=== PATIENT | female | born 1940 | race Caucasian/White ===

== ENCOUNTER → 2016-09-24 | Outpatient (CLI) | payer OTHER ==
[~2016-09-24] MED LIST: ALBUAER19 INH; CALC500C70 PO; CHOL200027 PO; CYAN10005 PO; FEXO1TAB49 PO; FLUT0.15; FLVHFA44 INH; GLC500 PO; GLIP10TA10 PO; LOSA1TAB PO; MISCTAB78 PO; NAPR1TAB9 PO; OMEG12006 PO; SIMV-151 PO; ZNTT/150 PO
--- NOTE | 2016-09-24 16:00 | MAMMOGRAPHY REPORT ---
BILATERAL DIGITAL SCREENING MAMMOGRAM WITH CAD: 09/24/2016 CLINICAL HISTORY: Routine screening. Patient has no complaints. TECHNIQUE: Bilateral CC and MLO views were obtained. Current study was also evaluated with a Compute r Aided Detection (CAD) system. COMPARISON: Comparison is made to exams dated: 09/22/2015 mammogram, 09/20/2014 mammogram, 09/17/2013 m ammogram, 09/15/2012 mammogram, 09/13/2011 mammogram, and 09/08/2010 mammogram - [facility] enter. BREAST COMPOSITION: There are scattered areas of fibroglandular density in both breasts. FINDINGS: There is evidence of prior surgery in the right breast, with 2 linear scar markers overlyi ng breast. There is stable nodularity and associated benign dystrophic calcification near the surgic al site in the 12:00 and slightly medial right breast. However, there is increasing nodularity in th e lateral anterior right breast, comparing to more remote mammograms, for which additional spot compr ession tomosynthesis views and possibly ultrasound are recommended. There are stable benign-appearing calcifications in the left breast. No other suspicious mass, len ectural distortion or cluster of microcalcifications is seen. IMPRESSION: ACR BI-RADS CATEGORY 0: INCOMPLETE EVALUATION: NEED ADDITIONAL IMAGING EVALUATION The increasing nodularity in the lateral anterior right breast needs additional evaluation. The patient will be called to schedule an appointment. Approximately 10% of breast cancers are not detected with mammography. A negative mammographic report should not delay biopsy if a clinically suggestive mass is present. Soo Ardon M.D. ay/:09/24/2016 13:41:04 Fruit Trimmer: Yamilet SCHWARTZ(R)(M), [facility] letter sent: Addl Imaging 0 BI-RADS Code: ACR BI-RADS Category 0: Incomplete Evaluation: Need Additional Imaging Evaluation
== END | disposition home or self-care (01) ==
LOC: C.MAMM 11:23
PROVIDERS: ATTEND Family Medicine
DX: Z12.31 Encounter for screening mammogram for malignant neoplasm of breast (principal)

== ENCOUNTER → 2016-10-03 | Day surgery (SDC) | payer OTHER ==
[2016-09-05 14:27] VITALS: BMI 45.0
[2016-09-19 14:26] VITALS: Ht 152.4 cm; Wt 111.5 kg
--- NOTE | 2016-09-19 14:45 | PAT Medication Instructions ---
Service Date Sep 19, 2016. Current Home Medication List Albuterol Inhaler (Ventolin Inhaler), 2 PUFFS INH QID PRN for Wheezing Aspirin (Aspirin 81), 1 TAB PO QPM Calcium/Vitamin D (Os-Davian 500 Plus D), 1 TAB PO QAM Cholecalciferol (Vitamin D-3), 1 TAB PO QAM Cyanocobalamin (Vitamin B-12), 1,000 MCG PO QAM Fexofenadine Hcl (Marly Allergy), 1 TAB PO QAM Fluticasone Propionate (Flovent Hfa), 2 PUFFS INH BID Fluticasone Propionate (Nasal) (Flonase Allergy Relief), 2 SPRAY NA DAILY Glipizide (Glipizide), 1 TAB PO BID Losartan Potassium (Cozaar), 12.5 MG PO QPM Metformin HCl (Metformin HCl), 1,000 MG PO BID Misc Natural Products (Osteo Bi-Flex Advanced Do), 1 TAB PO QAM Naproxen (Aleve), 220 MG PO BID PRN for Pain Tenmile-3 Fatty Acids (Tenmile 3), 1 CAP PO QAM Ranitidine (Zantac), 150 MG PO BID Simvastatin (Simvastatin), 1 TAB PO QPM Medication Instructions For Your Scheduled Surgery - Instructions per surgeon: Naproxen (Aleve), 220 MG PO BID PRN for Pain - Hold the following medications as of 09/20/16: Tenmile-3 Fatty Acids (Tenmile 3), 1 CAP PO QAM Misc Natural Products (Osteo Bi-Flex Advanced Do), 1 TAB PO QAM - Hold the following medications 48 hours prior to surgery: Metformin HCl (Metformin HCl), 1,000 MG PO BID - Hold the following medications the morning of surgery: Calcium/Vitamin D (Os-Davian 500 Plus D), 1 TAB PO QAM Cholecalciferol (Vitamin D-3), 1 TAB PO QAM Cyanocobalamin (Vitamin B-12), 1,000 MCG PO QAM Fexofenadine Hcl (Marly Allergy), 1 TAB PO QAM Glipizide (Glipizide), 1 TAB PO BID - Take the following medications the morning of surgery with a sip of water OTHERWISE NOTHING TO EAT OR DRINK AFTER MIDNIGHT: Albuterol Inhaler (Ventolin Inhaler), 2 PUFFS INH QID PRN for Wheezing (use if needed; BRING TO HOSPITAL) Fluticasone Propionate (Flovent Hfa), 2 PUFFS INH BID Fluticasone Propionate (Nasal) (Flonase Allergy Relief), 2 SPRAY NA DAILY Ranitidine (Zantac), 150 MG PO BID - Take the following medications as scheduled the night before surgery: Albuterol Inhaler (Ventolin Inhaler), 2 PUFFS INH QID PRN for Wheezing Fluticasone Propionate (Flovent Hfa), 2 PUFFS INH BID Glipizide (Glipizide), 1 TAB PO BID Ranitidine (Zantac), 150 MG PO BID Simvastatin (Simvastatin), 1 TAB PO QPM - Do Not take the following medications the night before surgery: Losartan Potassium (Cozaar), 12.5 MG PO QPM If you have any questions please call us at [phone] or [phone] or [phone]
[2016-09-19 15:39] LABS: HEMATOCRIT 35.9 % (37-47); MEAN CELL VOLUME 88.2 fL (80-100); MEAN PLATELET VOLUME 9.7 fL (7.4-10.4); PLATELET COUNT 205 K/uL (130-400); RED BLOOD COUNT 4.07 M/uL (4.2-5.4); WHITE BLOOD COUNT 7.61 K/uL (4.8-10.8)
[2016-09-19 15:53] LABS: BUN/CREATININE RATIO 14.2 (10-20); CALCIUM 9.1 mg/dl (8.5-10.1); CREATININE 0.9 mg/dl (0.60-1.20); POTASSIUM 3.8 mmol/L (3.5-5.1)
[~2016-10-03] VITALS: Ht 152.4 cm; Wt 111.5 kg
== END | disposition home or self-care (01) ==
LOC: C.PAT 10:50 → EDSTATUS 12:00
PROVIDERS: ATTEND Obstetrics & Gynecology
DX: N95.0 Postmenopausal bleeding (principal); Z00.00 Encounter for general adult medical examination without abnormal findings; Z53.9 Procedure and treatment not carried out, unspecified reason

== ENCOUNTER → 2016-10-03 | Outpatient (CLI) | payer OTHER ==
--- NOTE | 2016-10-03 15:52 | MAMMOGRAPHY REPORT ---
UNILATERAL RIGHT DIGITAL DIAGNOSTIC MAMMOGRAM TOMOSYNTHESIS AND TARGETED RIGHT ULTRASOUND: 10/03/2016 CLINICAL HISTORY: Callback from screening mammogram for increasing nodularity in the right lateral br east. The patient reports a history of benign right breast surgical excision which were reportedly c ysts. TECHNIQUE: Breast tomosynthesis in addition to standard 2D mammography was performed. Spot compress ion right CC and MLO 2-D and tomosynthesis images were obtained. COMPARISON: Comparison is made to exams dated: 09/24/2016 mammogram, 09/22/2015 mammogram, 09/20/2014 m ammogram, 09/17/2013 mammogram, 09/15/2012 mammogram, and 09/13/2011 mammogram - [facility] enter. BREAST COMPOSITION: There are scattered areas of fibroglandular density in the right breast. FINDINGS: Spot compression views of the right breast demonstrate multiple lobulated similar-appearing circumscribed masses throughout the right upper outer quadrant. When compared to prior exams, multi ple masses have been seen throughout the right breast for years including on the 2011 and 2010 exams. No dominant mass is noted. Targeted ultrasound was performed of the right breast in the region of the mammographic masses. Ther e are innumerable similar-appearing lobulated hypoechoic masses within the right breast, predominantl y the right 11 to 12:00 breast. One measures 7 x 7 x 6 mm in the right breast at 11:00, 3 cm from th e nipple, as well as an adjacent 5 5 x 5 mm mass in the same location. In the right breast at 11:00, 5 cm from the nipple, a similar lobulated mass is noted which measures 5 x 6 mm. A smaller 3 mm mas s is seen within the right breast at 11:00, 6 cm from the nipple. 2 adjacent masses are noted in the right 12:00 periareolar breast measuring 12 and 4 mm. Another similar mass measuring 8 x 6 mm is se en within the right breast at 12:00, 5 cm from the nipple. The masses are likely solid and given the multiplicity and lobulated nature, may represent papillomatosis. Recommend ultrasound-guided biopsy of one of the right breast masses for further evaluation. The patient denies any nipple discharge. IMPRESSION: ACR BI-RADS CATEGORY 4: SUSPICIOUS, TARGETED ULTRASOUND ACR BI-RADS CATEGORY 4: SUSPICIO US Innumerable hypoechoic lobulated masses throughout the right superior breast, predominantly the right 11 to 12:00 region, which may represent papillomatosis. 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 A phone call was made to the physician's office to confirm faxed results were received. The patient has been verbally notified of the results. She tentatively scheduled the biopsy before leaving the [facility].. Approximately 10% of breast cancers are not detected with mammography. A negative mammographic report should not delay biopsy if a clinically suggestive mass is present. Zonia Matson M.D. ah/:10/03/2016 15:11:29 Graphic Design Specialist: Kateryna HARRISON)(Sylvia), [facility] letter sent: Abnormal 4/5 BI-RADS Code: ACR BI-RADS Category 4: Suspicious Ultrasound BI-RADS: ACR BI-RADS Category 4: Suspici ous
== END | disposition home or self-care (01) ==
LOC: C.MAMM 13:15
PROVIDERS: ATTEND Family Medicine
DX: N63 Unspecified lump in breast (principal)

== ENCOUNTER → 2016-10-19 | Outpatient (CLI) | payer OTHER ==
--- NOTE | 2016-10-19 11:41 | Discharge Instructions ---
Discharge Instructions Procedure Procedure Date: Oct 19, 2016. Reason for visit: Right Masss. Discharge Discharge Date: Oct 19, 2016. Discharge Diagnosis: post right breast ultrasound guided core biopsy 11 axis Medications Restart Stopped Medication(s): Remain off Aspirin as per OB-MOTOR TESTER recommendations Instructions Activity Recommendations: Additional Limitations (see below) Return to School/Work: no limitations Recommended Home Diet: No Limitations Provider Instructions: ACTIVITY RECOMMENDATIONS: * No lifting, pushing, pulling or exercising the affected side for three days. RETURN TO SCHOOL/WORK: * You may return to work/school after the procedure, but do not perform any strenuous activities for 24 to 48 hours. MEDICATIONS: * Tylenol (two 325 mg) every four to six hours if needed for mild pain (if not allergic to Tylenol). DIET: * Resume previous diet. SPECIAL CARE INSTRUCTIONS: * Keep biopsy site dry for 24 hours. May shower after 24 hours, but do not soak (bathe) incision. * May remove Tegaderm (plastic patch) tomorrow AFTER showering. * Leave the steri-strips on for one week. Allow the steri-strips to fall off by themselves. If not off after one week, you may remove them. You may place a Bandaid crosswise over the strips, if desired. * Apply ice 10 minutes on and 10 minutes off as needed. * Wear a bra at bedtime to sleep more comfortably for 2-3 days. * Your referring physician should have the results after approximately 5 to 7 business days. * Call for unusual bleeding, fever, drainage, etc or if you have any questions call [phone] during normal business hours or after hours call Dr Ardon, . FOLLOW UP VISIT: Follow-up with Referring Physician as scheduled. Allergies Coded Allergies: Codeine (Unverified Allergy, Severe, ANAPHALAXIS, 09/19/16) Oxycodone (Verified Allergy, Unknown, COUGH, 09/19/16) Penicillins (Unverified Allergy, Unknown, REACTION CHILD, FAMILY HX OF REACTION, 09/19/16) INFORMED BY DOC TO NOT TAKE PENICILLINS Uncoded Allergies: OYSTERS (Allergy, Unknown, SHORTNESS OF BREATH, 02/23/15) Garland Palomares Recommendations: Call your doctor if: * Temperature above 101 degrees * Pain not relieved by pain medicine ordered * There is increased drainage or redness from any incision * You have any unanswered questions or concerns. Your Doctors Instructions noted above were prepared by provider Soo Ardon. Patient Signature Section: Patient Instructions Signature Page Svitlana Kerr Patient (or Guardian) Signature/Date: I have read and understand the instructions given to me by my caregivers. Caregiver/RN/Doctor Signature/Date: The above-named patient and/or guardian has received patient instructions on this date. + Original Patient Signature Page (only) stays with chart. Please make copy for patient.
--- NOTE | 2016-10-19 12:18 | MAMMOGRAPHY REPORT ---
THIS REPORT HAS BEEN AMENDED. 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 COMPARISON: Comparison is made to exams dated: 10/03/2016 ultrasound, 10/03/2016 mammogram, 09/24/2016 ma mmogram, 09/22/2015 mammogram, 09/20/2014 mammogram, and 09/17/2013 mammogram - [facility] nt. PATIENT CONSENT: The procedure, risks and benefits were discussed with the patient and informed writt en consent was obtained. Specific risks to this procedure include: bleeding, infection and puncture o f adjacent structure, nontarget biopsy, sampling error, pain, medication reaction and metal allergy. PROCEDURE DESCRIPTION: A time out was performed and the right breast was agreed as the site of biopsy . The skin was prepped and draped in the usual sterile fashion. The largest visualized lobulated katy d mass in the 11:00 right breast was identified and chosen as the target for biopsy. Subcutaneous and intraparenchymal 1% buffered lidocaine, with and without epinephrine was administered as local anest hesia. A skin incision was made. Through the incision, 4 samples were taken with a 14 gauge Achieve biopsy device. A ribbon-shaped metallic marker was placed at the biopsy site. Hemostasis was achieved after manual compression. The patient tolerated the procedure well and there was no immediate compli cation. The samples were sent to the pathology department and an appropriately labeled container. Postprocedure right CC and ML tomosynthesis images were obtained. A new ribbon-shaped biopsy marker clip is seen in the 11:00 middle one third of the right breast, at the site of the ultrasound guided core biopsy. Innumerable other circumscribed masses are again noted throughout the middle and anteri or right breast, as well as surgical clips from prior surgery. No significant post biopsy hematoma i s seen. IMPRESSION: ULTRASOUND GUIDED BIOPSY Status post ultrasound guided core biopsy of an indeterminate solid lobulated mass in the 11:00 right breast, with biopsy marker placed at the site. Further recommendations regarding the management of the innumerable other masses in the right breast will be made once pathology results are available. The patient will receive notification of the biopsy results from her referring physician. Soo Ardon M.D. ay/:10/19/2016 11:55:39 Outdoor Studies Director: Debi Robertson, [facility] AMENDMENT: 10/26/2016 Soo Ardon M.D. 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 The pathology results are conco rdant with the imaging appearance. It should be noted that the patient had 2 prior right breast surgeries, for which pathology reports a re not available, but presumably yielded benign pathology. There are innumerable masses in the right breast seen mammographically corresponding with similar appearing hypoechoic lobulated sonographic m asses. The multiple lobulated masses span 10 cm in transverse (lateral to medial dimension), and 7 c m in craniocaudal dimension, mostly located within the superior breast including the upper outer and upper inner quadrants. Given that all of these masses have similar sonographic appearance, the presu mably all represent papillomas, i.e. papillomatosis. Typically this process is followed with imaging as opposed to surgical excision, but would recommend surgical consultation for possible management o ptions.
--- NOTE | 2016-10-19 12:18 | MAMMOGRAPHY REPORT ---
UNILATERAL RIGHT DIGITAL DIAGNOSTIC MAMMOGRAM TOMOSYNTHESIS: 10/19/2016 CLINICAL HISTORY: Status post ultrasound guided core biopsy of a dominant lobulated solid mass in the 11:00 right breast. Please refer to the report from right breast ultrasound guided core biopsy performed at the same time for full detail. IMPRESSION: POST PROCEDURE IMAGING FOR MARKER PLACEMENT Please refer to the report from right breast ultrasound guided core biopsy performed at the same time for full detail. Approximately 10% of breast cancers are not detected with mammography. A negative mammographic report should not delay biopsy if a clinically suggestive mass is present. Soo Ardon M.D. ay/:10/19/2016 11:42:37 Holiday Detector Operator: Debi Robertson, [facility] BI-RADS Code: Post Procedure Imaging For Marker Placement
== END | disposition home or self-care (01) ==
LOC: C.MAMM 10:47
PROVIDERS: ATTEND Family Medicine
DX: N63 Unspecified lump in breast (principal)

== ENCOUNTER 2016-10-29 05:44 | Day surgery (SDC) | payer OTHER ==
[2016-10-26 16:17] VITALS: BMI 45.0
[~2016-10-29] VITALS: Ht 152.4 cm; Wt 105.0 kg
[2016-10-29] MEDS ORDERED: LACTATED RINGER'S 1000ML 1,000 ML IV SCH ×2 (06:00)
[2016-10-29 06:13] VITALS: PULSE 79; TEMP 36.8; O2SAT 96; Ht 152.4 cm; Wt 105.0 kg
--- NOTE | 2016-10-29 07:00 | History & Physical Bridge Note ---
H&P Re-Evaluation Bridge Note: I have examined the patient, reviewed the History & Physical and in the interval since the performance of the History & Physical I have noted the following changes of clinical significance: No changes noted
[2016-10-29] MEDS ORDERED: PROPOFOL IV EMULSION 10 MG/ML 20 ML VIAL IV ONE (07:15)
[2016-10-29] MEDS ORDERED: ROCURONIUM BROMIDE 10 MG/ML 5 ML VIAL ONE (07:15)
[2016-10-29] MEDS ORDERED: NEOSTIGMINE METHYLSULFATE 5 MG/5 ML SYR ONE (07:15)
[2016-10-29] MEDS ORDERED: GLYCOPYRROLATE INJ 0.2 MG/ML VIAL ONE (07:15)
[2016-10-29] MEDS ORDERED: ONDANSETRON INJ 2 MG/ML 2 ML VIAL ONE (07:15)
[2016-10-29] MEDS ORDERED: LIDOCAINE HCL 2% 2 ML VIAL (20MG/ML) ONE (07:15)
[2016-10-29] MEDS ORDERED: DEXAMETHASONE SOD INJ 4 MG/ML VIAL ONE (07:15)
[2016-10-29] MEDS ORDERED: FENTANYL CITRATE INJ 50 MCG/1 ML 2 ML VIAL ONE ×3 (07:16→08:46)
[2016-10-29] MEDS ORDERED: SODIUM CHLORIDE 0.9% 1000ML 1,000 ML IV SCH (07:57)
--- NOTE | 2016-10-29 07:59 | Discharge Instructions ---
Discharge Instructions Date of Service Oct 29, 2016. Admission Reason for Admission: Post Menopausal Bleeding Discharge Discharge Diagnosis / Problem: PMB Discharge Goals Goal(s): Routine recovery after surgery Activity Recommendations Activity Limitations: per Instructions/Follow-up section . Instructions / Follow-Up Instructions / Follow-Up ACTIVITY RECOMMENDATIONS: * Avoid tampons, douching, hot tubs, pools, and intercourse until bleeding has stopped. * May shower as usual. * No strenuous activity for 24-48 hours. After 24-48 hours, you may do anything you feel like doing (driving and sports are okay). SPECIAL CARE INSTRUCTIONS: Special Diet: * Mild nausea may occur in the immediate post-operative period. * Take clear liquids such as tea, cola or bouillon until all nausea has subsided; you may then resume your normal diet. Special Care: * Light bleeding and vaginal spotting can last from a few days to 3-4 weeks. Call your doctor if bleeding becomes heavier than the heaviest part of your period. * Check your temperature twice a day for one week. If it goes above 100.4 degrees Fahrenheit (38.0 Celsius), notify your doctor. * Call your doctor's office for an appointment for 6 weeks after your surgery. FOLLOW-UP VISIT: Call your doctor's office for an appointment for 6 weeks after your surgery. Current Hospital Diet Patient's current hospital diet: Discharge Diet Recommended Diet: Regular Diet Pending Studies Studies pending at discharge: no Medical Emergencies . Who to Call and When: Medical Emergencies: If at any time you feel your situation is an emergency, please call 911 immediately. . Non-Emergent Contact Non-Emergency issues call your: Construction Mgr . . "Provider Documentation" section prepared by George Olivarez. . VTE Core Measure Inpt VTE Proph given/why not?: Francisco Hunter, SCD's
[2016-10-29] MEDS ORDERED: PROMETHAZINE HCL INJ 25 MG in SODIUM CHLORIDE 0.9% 50ML 50 ML IV PRN (08:00)
[2016-10-29] MEDS ORDERED: ONDANSETRON INJ 2 MG/ML 2 ML VIAL IV PRN ×2 (08:00→08:15)
[2016-10-29] MEDS ORDERED: KETOROLAC TROMETHAMINE 15 MG/ML VIAL IV. PRN (08:00)
[2016-10-29] MEDS ORDERED: IBUPROFEN 600 MG TAB PO PRN (08:00)
--- NOTE | 2016-10-29 08:03 | [facility] Operative Report ---
Operative Report Operative Date Oct 29, 2016. Pre-Operative Diagnosis Postmenopausal bleeding Post-Operative Diagnosis Endometrial polyp Procedure(s) Performed Hysteroscopy resection of endometrial polyp Surgeon Juanis Manager Personal Surgeon(s) . Estimated Blood Loss 10 mL Findings Patient was taken back to the operating room prepped and draped in dorsal lithotomy position in yellowfin Afdy stirrups after receiving a general anesthetic. Bladder was drained uterus exam and found to be anteverted. Weighted speculum place in the vagina should be noted we drained her bladder as well with a catheter. Anterior lip of the cervix grasped with a single-tooth tenaculum cervix methodically dilated starting with a #13 dilator and progressing to a #25 dilator. At this stage it was able to place a 5 mm hysteroscope using normal saline survey solution. Findings large benign-appearing endometrial polyp originating from the fundus both tubal losses were visualized and normal no other findings endometrium atrophic no sign of perforation. The myosure was then connected and using the myosure lite we resected the polyp carefully. This was done in the usual fashion ensuring the blades were always in the board lining machine operator's visual view when active. Once the polyp was fully removed pictures were taken for documentation instruments were removed from the cervix and vagina sponge and instrument counts correct estimated fluid losses of saline 85 mL Specimens Endometrial polyp Drains none Anesthesia General Complication(s) None Disposition Recovery Room / PACU I attest to the content of the Intraoperative Record and any orders documented therein. Any exceptions are noted below.
[2016-10-29] MEDS ORDERED: NALOXONE HCL 0.4 MG/1 ML VIAL/CARP IV PRN (08:15)
[2016-10-29] MEDS ORDERED: MEPERIDINE HCL 25 MG/ML CARP IV PRN (08:15)
[2016-10-29] MEDS ORDERED: FENTANYL CITRATE INJ 50 MCG/1 ML 2 ML VIAL IV PRN (08:15)
[2016-10-29] MEDS ORDERED: ATROPINE SULFATE 0.1 MG/ML 5ML SYR IV PRN (08:15)
[2016-10-29] MEDS ORDERED: FLUMAZENIL 0.1 MG/1 ML 10 ML VIAL IV PRN (08:15)
[2016-10-29] MEDS ORDERED: PHENYLEPHRINE 100MCG/ML 5ML SYR IV PRN (08:15)
[2016-10-29] MEDS ORDERED: LABETALOL HCL IV 5 MG/ML 20ML IV PRN (08:15)
[2016-10-29] MEDS ORDERED: EpHEDrine SULFATE INJ 50 MG/ML AMP IV PRN (08:15)
[2016-10-29] MEDS ORDERED: LABETALOL HCL IV 5 MG/ML 20ML IV ONE (08:20)
[2016-10-29] MEDS ORDERED: KETOROLAC TROMETHAMINE 30 MG/ML VIAL ONE (08:47)
[2016-10-29] MEDS ORDERED: KETOROLAC TROMETHAMINE 30 MG/ML VIAL IV STA (08:48)
[2016-10-29 09:15] VITALS: BP 149/79; PULSE 71; TEMP 36.4; O2SAT 92
--- NOTE | 2016-10-29 09:18 | Anesthesiology Progress Note ---
Anesthesia Post Op Note Date & Time Oct 29, 2016 at 09:11 Vital Signs Pain Intensity: 2 Vital Signs Past 12 Hours Date Time Temp Pulse Resp B/P (MAP) Pulse Ox O2 Delivery O2 Flow Rate FiO2 10/29/16 08:52 160/88 10/29/16 08:50 75 21 92 10/29/16 08:50 75 21 10/29/16 08:47 148/86 10/29/16 08:45 77 16 94 10/29/16 08:45 78 16 10/29/16 08:42 150/90 10/29/16 08:40 77 11 10/29/16 08:40 77 11 96 10/29/16 08:37 146/83 10/29/16 08:35 76 10 10/29/16 08:35 76 10 100 10/29/16 08:32 151/84 10/29/16 08:30 78 12 98 10/29/16 08:30 77 12 10/29/16 08:27 138/89 10/29/16 08:25 78 13 99 10/29/16 08:25 78 13 10/29/16 08:22 141/91 10/29/16 08:20 75 13 97 10/29/16 08:20 76 13 10/29/16 08:17 144/97 10/29/16 08:15 80 15 10/29/16 08:15 80 15 96 10/29/16 08:10 36 84 16 184/90 96 Mask 10 10/29/16 06:13 36.8 79 22 96 Room Air Notes Mental Status: alert / awake / arousable, participated in evaluation Pt Amnestic to Procedure: Yes Nausea / Vomiting: adequately controlled Pain: adequately controlled Airway Patency, RR, SpO2: stable & adequate BP & HR: stable & adequate, see Notes Hydration State: stable & adequate Anesthetic Complications: no major complications apparent The patient was noted to be hypertensive preoperatively and intraoperatively on both induction and emergence. Her initial blood pressure in the PACU was elevated. However, subsequent blood pressures have been normal. The patient has a history of GERD and felt some central chest discomfort in the PACU. A 12 lead EKG was obtained that showed sinus rhythm with 1st degree AV block. No ST or T wave changes were noted. The discomfort was located over the sternum, did not radiate, and was made worse when palpating the sternal area. The pain has since resolved and the patient feels okay now. Her vitals are all stable. I reviewed the EKG and spoke with Dr. Jacobo about the patient. The chest discomfort did not appear to be cardiac in nature. However, the patient was counseled that if she feels any new or worsening chest discomfort, shortness of breath, or other concerning symptoms that she is to immediately go to the ER to which she agreed.
[2016-10-29 09:45] VITALS: BP 155/79; PULSE 74; O2SAT 92
[2016-10-29 10:15] VITALS: BP 150/96; PULSE 64; O2SAT 94
== END 2016-10-29 10:45 | disposition home or self-care (01) ==
LOC: C.OR 05:44
PROVIDERS: ATTEND Obstetrics & Gynecology
DX: N95.0 Postmenopausal bleeding (principal); N84.0 Polyp of corpus uteri; E66.01 Morbid (severe) obesity due to excess calories; M19.90 Unspecified osteoarthritis, unspecified site; J45.909 Unspecified asthma, uncomplicated; E11.9 Type 2 diabetes mellitus without complications; K21.9 Gastro-esophageal reflux disease without esophagitis; Z82.49 Family history of ischemic heart disease and other diseases of the circulatory system; Z85.038 Personal history of other malignant neoplasm of large intestine; Z80.3 Family history of malignant neoplasm of breast; Z79.84 Long term (current) use of oral hypoglycemic drugs; K44.9 Diaphragmatic hernia without obstruction or gangrene; Z98.49 Cataract extraction status, unspecified eye

== ENCOUNTER → 2017-02-19 | Outpatient (CLI) | payer OTHER ==
--- NOTE | 2017-02-19 15:40 | DIAGNOSTIC IMAGING REPORT ---
LUMBAR SPINE MIN 4 VIEWS HISTORY: Pain LOWER BACK PAIN COMPARISON: 04/19/2014 FINDINGS: There is no fracture. . Moderate to rather significant degenerative disc changes throughout. Grade 1 anterolisthesis L5 on S1 similar to the prior study. Degenerative change posterior elements. IMPRESSION: Degenerative change throughout the entire lumbar region. Stable grade 1 anterolisthesis L5 on S1. No acute process. The above report was generated using voice recognition software. It may contain grammatical, syntax or spelling errors. Electronically signed by: Shahzad Horn M.D. 02/19/2017 3:39 PM Dictated Date/Time: 02/19/2017 3:37 PM
== END | disposition home or self-care (01) ==
LOC: C.RDSM 14:00
PROVIDERS: ATTEND Internal Medicine
DX: M54.5 Low back pain (principal); M53.87 Other specified dorsopathies, lumbosacral region

== ENCOUNTER → 2017-03-01 | Outpatient (CLI) | payer OTHER ==
--- NOTE | 2017-03-01 12:10 | DIAGNOSTIC IMAGING REPORT ---
LUMBAR SPINE W/O CONTRAST CLINICAL HISTORY: 76 years-old Female presenting with LOWER BACK PAIN. TECHNIQUE: Multisequence, multiplanar MR imaging of the lumbar spine was performed without the use of intravenous contrast. IV contrast: None. COMPARISON: Plain radiographs of the lumbar spine from 02/19/2017. FINDINGS: Localizer images: Unremarkable. Normal lumbar lordosis. Vertebral bodies maintain normal height, alignment, and bone marrow signal intensity with the exception of a T2 hyperintense, peripherally T1 hyperintense and centrally T1 hypointense, peripherally fat-containing lesion in the L1 vertebral body. This is suggestive of an atypical hemangioma. Diffuse intervertebral disc desiccation noted with height loss at L2-3 and L3-4, where there are disc bulges/disc protrusions. Degenerative changes further detailed below: L1 to: No significant neural foraminal or spinal canal stenosis. L2-3: Disc bulge with right eccentric disc protrusion with slight cranial migration resulting in mild effacement of the right lateral recess. This abuts the exiting right L2 nerve root. No significant spinal canal narrowing. L3-4: Disc bulge with slight cranial migration. This results in mass effect on the bilateral exiting L3 nerve roots and severe bilateral neural foraminal narrowing. Mild effacement of the ventral thecal sac without evidence of impingement of the cauda equina. L4-5: Disc bulge results in mass effect on the exiting right L4 nerve root and abutment of the exiting left L4 nerve root. Moderate to severe bilateral neural foraminal narrowing. No significant spinal canal narrowing. L5-S1: Minimal disc bulge and facet arthropathy with mild to moderate neural foraminal narrowing bilaterally. Spinal cord ends in good position at L1. Cauda equina normal in morphology. Paraspinal musculature normal. Nonspecific superficial subcutaneous edema in the posterior posterior lumbar region. Incidental note made of a circumaortic left renal vein. IMPRESSION: 1. Multilevel degenerative changes primarily a result of disc bulges/disc protrusions. This results in mass effect on exiting nerve roots at several levels as well as varying degrees of neural foraminal narrowing as detailed above. This is most severe at L3-4 and L4-5. Electronically signed by: Niall Morgan M.D. 03/01/2017 12:08 PM Dictated Date/Time: 03/01/2017 12:03 PM
== END | disposition home or self-care (01) ==
LOC: C.MRI 10:56
PROVIDERS: ATTEND Internal Medicine
DX: M51.26 Other intervertebral disc displacement, lumbar region (principal); M51.36 Other intervertebral disc degeneration, lumbar region

== ENCOUNTER → 2017-03-18 | Outpatient (CLI) | payer OTHER ==
--- NOTE | 2017-03-19 07:55 | MAMMOGRAPHY REPORT ---
UNILATERAL RIGHT DIGITAL DIAGNOSTIC MAMMOGRAM TOMOSYNTHESIS WITH CAD AND TARGETED RIGHT ULTRASOUND: 1 05/19/2016 CLINICAL HISTORY: 76-year-old woman presents for follow-up in the right breast. She has a history of 2 prior right breast surgeries and a recent ultrasound-guided core biopsy in the 11:00 axis which occitan elded a papilloma. She was initially called back from screening mammography given slow interval incr ease in size and number of the masses comparing back to remote prior mammograms. TECHNIQUE: Right breast tomosynthesis in addition to standard 2D mammography was performed. Current hien topete was also evaluated with a Computer Aided Detection (CAD) system. COMPARISON: Comparison is made to exams dated: 10/19/2016 mammogram, 10/19/2016 ultrasound biopsy, 10/03 mammogram, 09/24/2016 mammogram, 09/22/2015 mammogram, and 09/20/2014 mammogram - [facility]. BREAST COMPOSITION: There are scattered areas of fibroglandular density in the right breast. FINDINGS: 2 linear scar markers overlie the right breast. There is expected architectural distortion in the anterior retroareolar right breast, 2 cm deep to the nipple, and in the lower inner middle on e third of the right breast at the locations of prior surgical excisions. There are dystrophic calci fications and surgical clips at both surgical site. There are at least 20 lobulated and circumscribed masses within the superior right breast both latera lly and medially. A biopsy marker clip is associated with one of the masses in the 11:00 right breas t. There is no evidence of a new spiculated, angular or irregular mass. No unexpected architectural distortion, developing asymmetry or new suspicious microcalcifications identified. When comparing t o the September 2016 mammograms, the right breast masses do not appear significantly changed in size, numb er or distribution. 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 Targeted ultrasound was performed throughout the superior right breast. The dominant biopsied mass i s again seen in the 11:00 right breast, 3 cm from the nipple. Groupings of lobulated hypoechoic katy d masses are identified throughout the 12:00, 1:00 and 11:00 axes. IMPRESSION: ACR-BI-RADS CATEGORY 3: PROBABLY BENIGN, TARGETED ULTRASOUND ACR-BI-RADS CATEGORY 3: PRO BABLY BENIGN There are at least 20 lobulated and circumscribed small masses within the upper outer and upper inner quadrants of the right breast that are increased in size and number comparing to more remote prior m ammograms, such as the 2007 mammogram, but appear stable comparing to the recent September 2016 mammograms . The borders of these masses are best visualized on the tomosynthesis images. Although it is contr oversial whether papillomas diagnosed at core needle biopsy need to be surgically excised because the y can have a heterogeneous composition, with suspected papillomatosis would recommend continued close follow-up imaging. Therefore, bilateral diagnostic tomosynthesis mammograms and bilateral complete ultrasound (30 minute s) is recommended to ensure stability in 6 months. These results and recommendations were discussed with the patient at the time of the exam. Approximately 10% of breast cancers are not detected with mammography. A negative mammographic report should not delay biopsy if a clinically suggestive mass is present. Soo Ardon M.D. ay/:03/18/2017 18:54:00 Field Control Inspector: Frida SCHWARTZ(R)(M), [facility] letter sent: Follow Up Recommended 3 BI-RADS Code: ACR-BI-RADS Category 3: Probably Benign Ultrasound BI-RADS: ACR-BI-RADS Category 3: Pr obably Benign
== END | disposition home or self-care (01) ==
LOC: C.MAMM 10:34
PROVIDERS: ATTEND Surgery
DX: N63.11 Unspecified lump in the right breast, upper outer quadrant (principal); N63.12 Unspecified lump in the right breast, upper inner quadrant; R92.8 Other abnormal and inconclusive findings on diagnostic imaging of breast; C83.11 Mantle cell lymphoma, lymph nodes of head, face, and neck

== ENCOUNTER → 2017-05-30 | Outpatient (CLI) | payer OTHER ==
[~2017-05-30] MED LIST changes: +RANI150T85 PO; -ZNTT/150 PO
--- NOTE | 2017-05-30 14:17 | DIAGNOSTIC IMAGING REPORT ---
CHEST 2 VIEWS ROUTINE CLINICAL HISTORY: R60.9 dyspnea COMPARISON STUDY: No previous studies for comparison. FINDINGS: The bones soft tissues and hemidiaphragms are normal. The cardiomediastinal silhouette is normal. The lungs are clear. The pulmonary vasculature is normal. IMPRESSION: Negative chest. The above report was generated using voice recognition software. It may contain grammatical, syntax or spelling errors. Electronically signed by: Shahzad Horn M.D. 05/30/2017 2:15 PM Dictated Date/Time: 05/30/2017 2:15 PM
== END | disposition home or self-care (01) ==
LOC: C.RAD1850 13:41
PROVIDERS: ATTEND Family Medicine
DX: R60.9 Edema, unspecified (principal); R63.5 Abnormal weight gain

== ENCOUNTER 2021-09-13 21:57 | Observation (INO) ==
[2021-09-13] MEDS ORDERED: SODIUM CHLORIDE 0.9% 1000ML 1,000 ML IV SCH (22:30)
[2021-09-13 22:41] LABS: Basophils # (auto) 0.01 K/uL (0-0.2); Basophils % (auto) 0.1 %; Eosinophils # (auto) 0.05 K/uL (0-0.5); Eosinophils % (auto) 0.5 %; Hematocrit (blood only) 37.7 % (37-47); Hemoglobin 12.2 g/dL (12.0-16.0); Immature Granulocytes # (auto) 0.02 K/uL (0.00-0.02); Immature Granulocytes % (auto) 0.2 %; Lymphocytes % (auto) 15.2 %; Mean Corpuscular Hemoglobin 28.3 pg (25-34); Mean Corpuscular Hgb Conc 32.4 g/dL (32-36); Mean Corpuscular Volume 87.5 fL (80-100); Mean Platelet Volume 10.7 fL (7.4-10.4); Monocytes # (auto) 0.86 K/uL (0.11-0.59); Monocytes % (auto) 8.7 %; Neutrophils % (auto) 75.3 %; Platelet Count 196 K/uL (130-400); RDW Standard Deviation 51.4 fL (36.4-46.3); Red Blood Count 4.31 M/uL (4.2-5.4); White Blood Count 9.84 K/uL (4.8-10.8)
--- NOTE | 2021-09-13 22:47 | Emergency Department Note ---
Impression & Plan Generalized muscle weakness, Contusion of leg, left, Fall, Hypomagnesemia ED Provider Note INFORMANT: Patient ED PROVIDER(S): George Pak MD CHIEF COMPLAINT: Fall PLAN: Disposition: Admitted Condition: Good Outpatient prescription management: none Referral: None MEDICAL DECISION MAKING: Patient presented because of a fall and weakness. She was evaluated. She had minor findings in the left leg. X-ray imaging did not reveal any evidence of fracture or dislocation. CT scan of the head was negative for acute process. Her CBC and chemistry panel was unremarkable. Patient does have a low magnesium level at 1.3. Patient's troponin is also borderline. An ECG was performed and did not show any acute findings. Patient's urinalysis was unremarkable as well as COVID testing. IV magnesium was given. Discussed further management in the hospital and patient was in agreement. Consultation was made with the [facility]. Patient was evaluated in the ER and admitted for further management. Triage Nursing notes reviewed and agree them. Vital Signs: reviewed and remarkable for hypertension Differential diagnosis: Infection, dehydration, metabolic abnormality, hypo/hyperglycemia, electrolyte disturbance, anemia, hypoxia, cardiac sources, intracerebral event, toxicologic, neurologic, as well as other pathologies. Diagnostics interpreted by me: EC Lead ECG performed and revealed Normal sinus rhythm at 89, left [place], QRS normal. No elevation or depression. No PACs or PVCs Cardiac Monitoring: Cardiac monitoring ordered by me: The patient was placed on continuous cardiac monitoring and observed. It revealed a normal sinus rhythm at 86 beats per minute without ectopy or evidence of dysrhythmia. Imaging studies: Head CT and x-rays as above. Chest x-ray negative. HPI: The patient is a 81year old female who presents to the Emergency Room with complaints of fall. This started today and is noted to have occurred twice. First time the patient had EMS canceled. She then fell again trying to go to the bathroom. She was too weak to get up out of her chair and use a walker. She did feel like she hurt her left leg but was able to put weight. EMS was summoned and she was brought to the emergency department. The patient also notes the following associated symptoms, generalized weakness. The patient has taken no medication forrelieving factors. Current pain is rated as 3/10. Patient has a history of a meningioma resection and currently has another one that is being watched. Pt denies LOC, headache, fevers, chills, diaphoresis, visual changes, neck pain, chest pain, breathing difficulties, nausea, vomiting, abdominal pain, back pain, melena, hematochezia, urinary symptoms, numbness, weakness, lymphadenopathy, rash, or other complaints. ROS: See above HPI for pertinent positives & negatives. A total of 10 systems reviewed and were otherwise negative. PAST MEDICAL HISTORY:See Below , asthma PAST SURGICAL HISTORY:See Below, FAMILY HISTORY:See Below SOCIAL HISTORY:See Below, HOME MEDICATIONS:See Below ALLERGIES:See Below VITALS:See Below PHYSICAL EXAMINATION: GENERAL: Awake, alert, well-appearing, in no distress HENT: Normocephalic, atraumatic. Oropharynx unremarkable. EYES: Normal conjunctiva. Sclera non-icteric. NECK: Inspection normal. Non-tender. Supple. No nuchal rigidity. FROM. No masses. RESPIRATORY: Clear to auscultation. No wheezes. No rales. Normal respiratory effort. CARDIAC: Normal rate. Normal rhythm. No murmurs. No rubs. Extremities warm and well perfused. Pulses equal. No JVD. GI: Soft, non-distended. No tenderness to palpation. No rebound or guarding. No masses. RECTAL: Deferred. MUSCULOSKELETAL: Atraumatic appearance. Tenderness to palpation of the mid left femur without obvious deformity or external rotation. No hip tenderness. Upper and right lower extremities are atraumatic. Chest examination reveals no tenderness. The back is symmetrical on inspection without obvious abnormality. There is no CVA tenderness to palpation. No joint edema. LOWER EXTREMITIES: Calves are equal size bilaterally and non-tender. No edema. N o discoloration. NEURO: Normal sensorium. No sensory or motor deficits noted. SKIN: No rash or jaundice noted. George Pak MD Past Med/Surg History Medical History (Updated 09/14/21 @ 02:09 by George Pak MD) Asthma HAS NOT USED RESCUE INHALER FOR A WHILE Diabetes mellitus, type 2 GERD (gastroesophageal reflux disease) Hx of meningioma of the brain Hyperlipidemia Hypertension Osteoarthritis Peripheral neuropathy Seasonal allergies Sleep apnea DOES NOT USE DEVICE "CURRENTLY" Thyroid cyst THYROID GROWTH (HX BIOPSY) Surgical History History of anesthesia reaction PLEASE SEE VOCAL CORD PARALYSIS NOTE History of cataract surgery RT/LEFT History of colonoscopy History of dilatation and curettage X 2 History of tooth extraction Hx of craniotomy DURING PROCEURE NICKED VOCAL CORD (2019) [facility] [place] 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 D/T CORRECTIVE SURGERY VOCAL CORD CORRECTION USING FAT FROM ABDOMEN TO BUILD UP THE VOCAL CORD ([facility]) Retinal tear of both eyes LASER RT/LEFT Family History (Updated 01/04/21 @ 12:56 by YOHANA Metcalf) Father Family hx of colon cancer Family history of diabetes mellitus Other Cancer Heart disease Tuberculosis Denies family history of Asthma Social History Smoking Status: Never smoker Second Hand Exposure: Yes ( A CHILD); Hx Alcohol Use: No Preferred Language: [place] [employer] Sewer Required: No Beliefs That Will Affect Care: None Current Living Situation: Spouse Feels Safe at Home: Yes Assistive Devices: Cane, Glasses and Hearing Aid - Bilateral Allergies Allergies Allergy/AdvReac Type Severity Reaction Status Date / Time codeine Allergy Severe ANAPHALAXIS Verified 09/13/21 22:33 Penicillins Allergy Unknown REACTION Verified 09/13/21 22:33 CHILD, FAMILY HX OF REACTION lisinopril AdvReac Mild cough Verified 09/13/21 22:33 oyster extract AdvReac Mild NAUSEA/VOMI Verified 09/13/21 22:33 TTING Home Meds Home Medications Medication Instructions Recorded Confirmed atorvastatin 40 mg tablet 40 mg PO PM 01/27/20 09/13/21 glipizide 10 mg tablet 10 mg PO BID 01/27/20 09/13/21 losartan 25 mg tablet 25 mg PO QPM 01/27/20 09/13/21 metformin 1,000 mg tablet 1,000 mg PO BID 01/27/20 09/13/21 pantoprazole 40 mg tablet,delayed 40 mg PO QAM 01/27/20 09/13/21 release aspirin 81 mg tablet,delayed 81 mg PO DAILY 01/04/21 09/13/21 release calcium citrate 200 mg (950 mg) 200 mg PO DAILY 01/04/21 09/13/21 tablet cholecalciferol (vitamin D3) 25 25 mcg PO DAILY 01/04/21 09/13/21 mcg (1,000 unit) capsule coenzyme Q10 100 mg capsule 200 mg PO DAILY cap 01/04/21 09/13/21 (CoQ-10) metoprolol succinate 25 mg 25 mg PO DAILY 09/13/21 09/13/21 tablet,extended release 24 hr Previous Rx's Medication Instructions Recorded CPAP Machine #1 ea 02/01/21 CPAP Supplies #1 ea 06/06/21 Incentive Spirometer #1 ea 06/06/21 levocetirizine 5 mg tablet 5 mg PO DAILY PRN #30 tab 06/06/21 albuterol sulfate 90 mcg/actuation 2 puff INHALATION Q6H PRN #1 06/13/21 aerosol inhaler inhaler Results & Data (ED) Vital Signs Vital Signs - 24 hr 09/13/21 22:02 09/13/21 22:26 09/13/21 22:30 Temperature 37 C Temperature Source Oral Pulse Rate 94 H 88 93 H Pulse Rhythm Regular Regular Pulse Strength Normal Respiratory Rate 24 24 Respiratory Effort / Characteristics Non-Labored Respiratory Depth Normal Respiratory Pattern Regular Blood Pressure 176/119 H 163/129 H Blood Pressure Mean 138 140 Blood Pressure Position Sitting Pulse Oximetry 97 97 98 Oxygen Delivery Method Room Air Room Air Room Air Sepsis Recent Fever Within 48 Hours No Sepsis New/Unexplained Change in Mental Status No Sepsis Action Taken by Nursing No Action Required 09/13/21 23:00 09/14/21 00:15 09/14/21 00:31 Temperature Temperature Source Pulse Rate 94 H 67 92 H Pulse Rhythm Pulse Strength Respiratory Rate 19 19 18 Respiratory Effort / Characteristics Respiratory Depth Respiratory Pattern Blood Pressure 154/95 H 185/101 H 154/79 H Blood Pressure Mean 114 129 104 Blood Pressure Position Pulse Oximetry 95 97 94 Oxygen Delivery Method Room Air Room Air Room Air Sepsis Recent Fever Within 48 Hours Sepsis New/Unexplained Change in Mental Status Sepsis Action Taken by Nursing 09/14/21 01:00 09/14/21 01:30 09/14/21 02:01 Temperature Temperature Source Pulse Rate 84 82 86 Pulse Rhythm Pulse Strength Respiratory Rate 16 16 17 Respiratory Effort / Characteristics Respiratory Depth Respiratory Pattern Blood Pressure 136/90 150/95 H 123/97 Blood Pressure Mean 105 113 105 Blood Pressure Position Pulse Oximetry 96 96 94 Oxygen Delivery Method Room Air Room Air Room Air Sepsis Recent Fever Within 48 Hours Sepsis New/Unexplained Change in Mental Status Sepsis Action Taken by Nursing Laboratory Data Result diagrams: 09/13/21 22:21 09/13/21 22:08 Lab Results 09/13/21 09/13/2122 Range/Units 22:08 22:08 22:21 WBC 9.84 (4.8-10.8) K/uL RBC 4.31 (4.2-5.4) M/uL Hgb 12.2 (12.0-16.0) g/dL Hct 37.7 (37-47) % MCV 87.5 (80-100) fL MCH 28.3 (25-34) pg MCHC 32.4 (32-36) g/dL RDW Std Deviation 51.4 H (36.4-46.3) fL RDW Coeff of Bo 16.0 H (11.5-14.5) % Plt Count 196 (130-400) K/uL MPV 10.7 H (7.4-10.4) fL Immature Gran % (Auto) 0.2 % Neut % (Auto) 75.3 % Lymph % (Auto) 15.2 % [place] % (Auto) 8.7 % Eos % (Auto) 0.5 % Baso % (Auto) 0.1 % Neut # (Auto) 7.40 H (1.4-6.5) K/uL Lymph # (Auto) 1.50 (1.2-3.4) K/uL [place] # (Auto) 0.86 H (0.11-0.59) K/uL Eos # (Auto) 0.05 (0-0.5) K/uL Baso # (Auto) 0.01 (0-0.2) K/uL Immature Gran # (Auto) 0.02 (0.00-0.02) K/uL Sodium 140 (136-145) mmol/L Potassium 3.9 (3.5-5.1) mmol/L Chloride 107 (98-107) mmol/L Carbon Dioxide 25 (21-32) mmol/L Anion Gap 8 (3-11) BUN 21 (6-23) mg/dl Creatinine 0.97 (0.6-1.2) mg/dl Est Cr Clr Drug Dosing 48.9 ml/min Est GFR ( Amer) 63.5 ml/min Est GFR (Non-Af Amer) 54.8 ml/min BUN/Creatinine Ratio 21.6 H (10-20) Glucose 161 H (70-99(Fasting)) mg/dl Calcium 9.3 (8.5-10.1) mg/dl Magnesium 1.3 L (1.7-2.4) mg/dl Total Bilirubin 0.8 (0.2-1.0) mg/dl AST 16 (13-39) U/L ALT 18 (7-52) U/L Alkaline Phosphatase 42 (34-104) U/L Total Creatine Kinase 182 (26-192) U/L Troponin I High Sens 14.2 H (0-14) pg/ml Total Protein 6.4 (6.0-8.3) gm/dl Albumin 3.9 (3.4-5.0) gm/dl Globulin 2.5 (2.5-4.0) gm/dl Albumin/Globulin Ratio 1.6 (0.9-2) TSH 3.246 (0.300-4.500) uIu/ml Urine Color Urine Appearance (Clear) Urine pH (4.5-7.5) Ur Specific [place] (1.000-1.030) Urine Protein (Negative) Urine Glucose (UA) (Negative) Urine Ketones (Negative) Urine Blood (Negative) Urine Nitrite (Negative) Urine Bilirubin (Negative) Urine Urobilinogen (Negative) Ur Leukocyte Esterase (Negative) SARS-CoV-2, RNA, NAAT (NEGATIVE) 09/13/21 09/13/21 Range/Units 22:50 23:31 WBC (4.8-10.8) K/uL RBC (4.2-5.4) M/uL Hgb (12.0-16.0) g/dL Hct (37-47) % MCV (80-100) fL MCH (25-34) pg MCHC (32-36) g/dL RDW Std Deviation (36.4-46.3) fL RDW Coeff of Bo (11.5-14.5) % Plt Count (130-400) K/uL MPV (7.4-10.4) fL Immature Gran % (Auto) % Neut % (Auto) % Lymph % (Auto) % [place] % (Auto) % Eos % (Auto) % Baso % (Auto) % Neut # (Auto) (1.4-6.5) K/uL Lymph # (Auto) (1.2-3.4) K/uL [place] # (Auto) (0.11-0.59) K/uL Eos # (Auto) (0-0.5) K/uL Baso # (Auto) (0-0.2) K/uL Immature Gran # (Auto) (0.00-0.02) K/uL Sodium (136-145) mmol/L Potassium (3.5-5.1) mmol/L Chloride (98-107) mmol/L Carbon Dioxide (21-32) mmol/L Anion Gap (3-11) BUN (6-23) mg/dl Creatinine (0.6-1.2) mg/dl Est Cr Clr Drug Dosing ml/min Est GFR ( Amer) ml/min Est GFR (Non-Af Amer) ml/min BUN/Creatinine Ratio (10-20) Glucose (70-99(Fasting)) mg/dl Calcium (8.5-10.1) mg/dl Magnesium (1.7-2.4) mg/dl Total Bilirubin (0.2-1.0) mg/dl AST (13-39) U/L ALT (7-52) U/L Alkaline Phosphatase (34-104) U/L Total Creatine Kinase (26-192) U/L Troponin I High Sens (0-14) pg/ml Total Protein (6.0-8.3) gm/dl Albumin (3.4-5.0) gm/dl Globulin (2.5-4.0) gm/dl Albumin/Globulin Ratio (0.9-2) TSH (0.300-4.500) uIu/ml Urine Color Yellow Urine Appearance Clear (Clear) Urine pH 8.5 H (4.5-7.5) Ur Specific [place] 1.008 (1.000-1.030) Urine Protein Negative (Negative) Urine Glucose (UA) Trace H (Negative) Urine Ketones Negative (Negative) Urine Blood Negative (Negative) Urine Nitrite Negative (Negative) Urine Bilirubin Negative (Negative) Urine Urobilinogen Negative (Negative) Ur Leukocyte Esterase Negative (Negative) SARS-CoV-2, RNA, NAAT NEGATIVE (NEGATIVE) Administered Medications Sodium Chloride (Nss 1000ml) 1,000 mls @ 125 mls/hr IV .Q8H BERTIN Stop: 09/14/21 06:29 Last Admin: 09/14/21 00:39 Dose: 125 mls/hr Documented by: [id number] Magnesium Sulfate/Dextrose (Magnesium Sulfate / D5w) 1 gm in 100 mls @ 100 mls/hr IV Q1H BERTIN Stop: 09/14/21 02:28 Last Infusion: 09/14/21 01:44 Dose: 0 mls/hr Documented by: [id number] Admin: 09/14/21 00:44 Dose: 100 mls/hr Documented by: [id number] Discharge Plan Visit Data Chief Complaint: Fall ED Provider: George Pak Discharge Problem: Generalized muscle weakness, Contusion of leg, left, Fall, Hypomagnesemia Patient Disposition: Admitted As Inpatient Forms Stand Alone Forms: [facility] [place] Data Prescriptions Prescriptions: No Action (DME) CPAP Machine Misc See Rx Instructions .MEDSUPPLY Qty: 1 RF: 0 albuterol sulfate 90 mcg/actuation HFA aerosol inhaler 2 puff inhalation Q6H PRN (Reason: shortness of breath or wheezing) Qty: 1 RF: 5 levocetirizine 5 mg tablet 5 mg PO DAILY PRN (Reason: allergy symptoms) Qty: 30 RF: 3 (DME) Incentive Spirometer Misc See Rx Instructions .MEDSUPPLY Qty: 1 RF: 0 (DME) CPAP Supplies Misc See Rx Instructions .MEDSUPPLY Qty: 1 RF: 0 coenzyme Q10 [CoQ-10] 100 mg capsule 200 mg PO DAILY RF: 0 cholecalciferol (vitamin D3) 25 mcg (1,000 unit) capsule 25 mcg PO DAILY RF: 0 calcium citrate 200 mg (950 mg) tablet 200 mg PO DAILY RF: 0 aspirin 81 mg tablet,delayed release (DR/EC) 81 mg PO DAILY RF: 0 atorvastatin 40 mg Tablet 40 mg PO PM RF: 0 glipizide 10 mg Tablet 10 mg PO BID RF: 0 pantoprazole 40 mg Tablet,Delayed Release (Dr/Ec) 40 mg PO QAM RF: 0 metformin 1,000 mg Tablet 1,000 mg PO BID RF: 0 losartan 25 mg Tablet 25 mg PO QPM RF: 0 metoprolol succinate 25 mg tablet extended release 24 hr 25 mg PO DAILY RF: 0 Referrals Referrals: Vince Skinner MD [Primary Care Provider] -
[2021-09-13 22:57] LABS: Albumin Globulin Ratio 1.6 (0.9-2); Albumin Level 3.9 gm/dl (3.4-5.0); BUN Creatinine Ratio 21.6 (10-20); Bilirubin,Total 0.8 mg/dl (0.2-1.0); Calcium 9.3 mg/dl (8.5-10.1); Creatinine Clr Calc Pharmacy 48.9 ml/min; Est GFR (African American) 63.5 ml/min; Est GFR (Non-African American) 54.8 ml/min; Globulin 2.5 gm/dl (2.5-4.0); Magnesium 1.3 mg/dl (1.7-2.4); Potassium 3.9 mmol/L (3.5-5.1); Total Protein 6.4 gm/dl (6.0-8.3); Troponin I High Sensitivity 14.2 pg/ml (0-14)
[2021-09-13 23:38] LABS: Appearance Urine Clear (Clear); Bilirubin Urine Negative (Negative); Blood Urine Negative (Negative); Color Urine Yellow; Glucose Urine UA Trace (Negative); Ketones Urine Negative (Negative); Leukocyte Esterase Urine Negative (Negative); Nitrite Urine Negative (Negative); Protein Urine Negative (Negative); Specific Gravity Urine 1.008 (1.000-1.030); Urobilinogen Urine Negative (Negative); pH Urine 8.5 (4.5-7.5)
[2021-09-14] MEDS: MAGNESIUM SULFATE / D5W 1 GM/100 ML BAG IV SCH ×2 (00:44→02:09)
--- NOTE | 2021-09-14 01:11 | History & Physical Report ---
Date of Service September 14, 2021 Assessment & Plan (1) Fall: Plan: 81yo female with history fo DM, HTN, HLP and MARTHA presenting from home after two ground level falls, difficulty getting up requiring assistance from EMS. Patient with diffuse muscle weakness, specifically mentions some discomfort and weakness of her left thigh. Does report some difficulty getting up from a chair at times. On X-ray left thigh do not appreciate any acute fracture of the femur or hip - no formal read Nonfocal neurological exam Hypomagnesemia may be contributing to diffuse weakness -Observation to medical -PT/OT evaluations appreciated -Case management evaluation for home needs -Mg repletion -Fall precautions -Will check ESR, CRP and CK total - consider diagnosis of polymyalgia rheumatica - elderly female with report of proximal muscle pain and weakness, difficulty rising from a chair as well as joint discomfort -Tylenol PRN (2) Generalized muscle weakness: Plan: Patient wtih fall x 2 at home secondary to generalized weakness. Low Magnesium may be contributing -Mg repletion -PT/OT/CM evaluations appreciated -Fall precautions (3) Elevated troponin: Plan: HS-troponin mildly elevated at 14.2. Patient denies chest pain -Repeat troponin (4) Restrictive lung disease: Plan: Thought to be secondary to patient's obesity. She follows with Pulmonary. Last seen in May 2021. (5) MARTHA (obstructive sleep apnea): Plan: Chronic -Continue CPAP qHS 8cmH20 (6) Diabetes mellitus, type 2: Plan: Blood sugar = 161 -Hold oral agents - Glipizide and Metformin -lantus 5u BID, ISS -Goal blood sugar 100 - 140 while inpatient -Check HgbA1C in AM (7) GERD (gastroesophageal reflux disease): Plan: Chronic -Continue Protonix 40mg po qam (8) Hyperlipidemia: Plan: Chronic -Continue Atorvastatin (9) Hypertension: Plan: Blood pressure adequately controlled -Continue metoprolol -Continue Losartan -Monitor History of Present Illness Chief Complaint: Weakness, fall Primary Care Provider: Vince Skinner MD Svitlana Kerr is an 81 yo female with history of DM, HTN, HLP, GERD and MARTHA on CPAP presenting after fall x 2 at home. Patient reports recent pain in her left thigh as well as some weakness. Also with worsening bilateral knee pain and arthritis symptoms and muscle cramps. Patient went to her basement this afternoon and had a difficult time getting back up the steps. She reports that her legs felt very weak and tired. When she got to the top of the stairs her legs gave out and she fell to the floor. She did not strike her head or lose consciousness. She denies chest pain, SOB, palpitations or dizziness. Her helped her off the floor and guided her into a chair. Later in the evening she was unable to get up from the chair to go to the bathroom. She finally got up but her legs gave out again and she fell. 911 was called and patient was brought to the ER. Patient reports some pain in her left femur. Otherwise no complaints. She denies chest pain, palpitations, cough, SOB, nausea, vomiting, diarrhea or constipation. Denies LIANG or visual changes. Denies focal numbness or weakness. She has been experiencing muscle cramping at night as well as worsening bilateral knee pain. Daughter called ER and is concerned about patient's safety at home. She feels that home services are needed. ER Course - Magnesium x 2 gm ordered Allergies Allergy/AdvReac Type Severity Reaction Status Date / Time codeine Allergy Severe ANAPHALAXIS Verified 09/13/21 22:33 Penicillins Allergy Unknown REACTION Verified 09/13/21 22:33 CHILD, FAMILY HX OF REACTION lisinopril AdvReac Mild cough Verified 09/13/21 22:33 oyster extract AdvReac Mild NAUSEA/VOMI Verified 09/13/21 22:33 TTING Home Medications Medication Instructions Recorded Confirmed Type atorvastatin 40 mg tablet 40 mg PO PM 01/27/20 09/13/21 History glipizide 10 mg tablet 10 mg PO BID 01/27/20 09/13/21 History losartan 25 mg tablet 25 mg PO QPM 01/27/20 09/13/21 History metformin 1,000 mg tablet 1,000 mg PO BID 01/27/20 09/13/21 History pantoprazole 40 mg tablet,delayed 40 mg PO QAM 01/27/20 09/13/21 History release aspirin 81 mg tablet,delayed 81 mg PO DAILY 01/04/21 09/13/21 History release calcium citrate 200 mg (950 mg) 200 mg PO DAILY 01/04/21 09/13/21 History tablet cholecalciferol (vitamin D3) 25 25 mcg PO DAILY 01/04/21 09/13/21 History mcg (1,000 unit) capsule coenzyme Q10 100 mg capsule 200 mg PO DAILY cap 01/04/21 09/13/21 History (CoQ-10) CPAP Machine #1 ea 02/01/21 Rx CPAP Supplies #1 ea 06/06/21 06/06/21 Rx Incentive Spirometer #1 ea 06/06/21 06/06/21 Rx levocetirizine 5 mg tablet 5 mg PO DAILY PRN #30 tab 06/06/21 09/13/21 Rx albuterol sulfate 90 mcg/actuation 2 puff INHALATION Q6H PRN #1 06/13/21 09/13/21 Rx aerosol inhaler inhaler metoprolol succinate 25 mg 25 mg PO DAILY 09/13/21 09/13/21 History tablet,extended release 24 hr Past Med/Surg History Medical History (Updated 09/14/21 @ 01:39 by Kalpana Luz, ) Asthma HAS NOT USED RESCUE INHALER FOR A WHILE Diabetes mellitus, type 2 GERD (gastroesophageal reflux disease) Hx of meningioma of the brain Hyperlipidemia Hypertension Osteoarthritis Peripheral neuropathy Seasonal allergies Sleep apnea DOES NOT USE DEVICE "CURRENTLY" Thyroid cyst THYROID GROWTH (HX BIOPSY) Surgical History History of anesthesia reaction PLEASE SEE VOCAL CORD PARALYSIS NOTE History of cataract surgery RT/LEFT History of colonoscopy History of dilatation and curettage X 2 History of tooth extraction Hx of craniotomy DURING PROCEURE NICKED VOCAL CORD (2019) [facility] IN [place] 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 D/T CORRECTIVE SURGERY VOCAL CORD CORRECTION USING FAT FROM ABDOMEN TO BUILD UP THE VOCAL CORD ([facility]) Retinal tear of both eyes LASER RT/LEFT Family History (Updated 01/04/21 @ 12:56 by YOHANA Metcalf) Father Family hx of colon cancer Family history of diabetes mellitus Other Cancer Heart disease Tuberculosis Denies family history of Asthma Social History Smoking Status: Never smoker Second Hand Exposure: Yes ( A CHILD); Hx Alcohol Use: No Preferred Language: Pashto Motor Vehicle Examiner Required: No Beliefs That Will Affect Care: None Current Living Situation: Spouse Feels Safe at Home: Yes Assistive Devices: Cane, Glasses and Hearing Aid - Bilateral Review of Systems Review of Systems: All systems reviewed & are unremarkable except as noted in HPI & below Physical Exam Physical Exam: General: patient resting comfortably, NAD, non-toxic in appearance, AA&O x 4 Skin: warm, dry, intact, no rashes or lesions HEENT: NC/AT, PERRL, EOMI, anicteric sclera, conjunctiva without injection, external ear normal to inspection and nontender, nares patent, moist mucus membranes, dentition intact, no oropharyngeal lesions, neck supple, trachea midline, no LAD, no thyromegaly, no JVD Heart: +S1/S2, regular, no m/r/g Lungs: equal air entry bilaterally, no rales/rhonchi/wheezes Abd: +BS, soft, NT/ND, no masses/organomegaly/ascites Ext: warm, 2+ pulses in UE/LE bilaterally, no clubbing/cyanosis or edema Neuro: nonfocal, patient AA&O x 4, speech intact, no facial droop, moving all extremities on command with equal strength 5/5 No temporal artery tenderness No muscle pain on palpation Results & Data Results & Data ([facility]) Vital Signs (Past 12 Hours) Vital Signs Temp Pulse Resp BP Pulse Ox 09/13/21 22:26 88 24 97 09/13/21 22:02 37 C 94 H 24 176/119 H 97 Laboratory Results Laboratory Results WBC 9.84 K/uL (4.8-10.8) 09/13/21 22: RBC 4.31 M/uL (4.2-5.4) 09/13/21 22:21 Hgb 12.2 g/dL (12.0-16.0) 09/13/21 22: Hct 37.7 % (37-47) 09/13/21 22:21 MCV 87.5 fL (80-100) 09/13/21 22:21 MCH 28.3 pg (25-34) 09/13/21 22:21 MCHC 32.4 g/dL (32-36) 09/13/21 22: RDW Std Deviation 51.4 fL (36.4-46.3) H 09/13/21 22:21 RDW Coeff of Bo 16.0 % (11.5-14.5) H 09/13/21 22:21 Plt Count 196 K/uL (130-400) 09/13/21 22:21 MPV 10.7 fL (7.4-10.4) H 09/13/21 22:21 Immature Gran % (Auto) 0.2 % 09/13/21 22:21 Neut % (Auto) 75.3 % 09/13/21 22:21 Lymph % (Auto) 15.2 % 09/13/21 22:21 [place] % (Auto) 8.7 % 09/13/21 22:21 Eos % (Auto) 0.5 % 09/13/21 22:21 Baso % (Auto) 0.1 % 09/13/21 22:21 Neut # (Auto) 7.40 K/uL (1.4-6.5) H 09/13/21 22:21 Lymph # (Auto) 1.50 K/uL (1.2-3.4) 09/13/21 22:21 [place] # (Auto) 0.86 K/uL (0.11-0.59) H 09/13/21 22:21 Eos # (Auto) 0.05 K/uL (0-0.5) 09/13/21 22:21 Baso # (Auto) 0.01 K/uL (0-0.2) 09/13/21 22:21 Immature Gran # (Auto) 0.02 K/uL (0.00-0.02) 09/13/21 22:21 Sodium 140 mmol/L (136-145) 09/13/21 22:08 Potassium 3.9 mmol/L (3.5-5.1) 09/13/21 22:08 Chloride 107 mmol/L (98-107) 09/13/21 22:08 Carbon Dioxide 25 mmol/L (21-32) 09/13/21 22:08 Anion Gap 8 (3-11) 09/13/21 22:08 BUN 21 mg/dl (6-23) 09/13/21 22:08 Creatinine 0.97 mg/dl (0.6-1.2) 09/13/21 22:08 Est Cr Clr Drug Dosing 48.9 ml/min 09/13/21 22:08 Est GFR ( Amer) 63.5 ml/min 09/13/21 22:08 Est GFR (Non-Af Amer) 54.8 ml/min 09/13/21 22:08 BUN/Creatinine Ratio 21.6 (10-20) H 09/13/21 22:08 Glucose 161 mg/dl (70-99(Fasting)) H 09/13/21 22:08 Calcium 9.3 mg/dl (8.5-10.1) 09/13/21 22:08 Magnesium 1.3 mg/dl (1.7-2.4) L 09/13/21 22:08 Total Bilirubin 0.8 mg/dl (0.2-1.0) 09/13/21 22:08 AST 16 U/L (13-39) 09/13/21 22:08 ALT 18 U/L (7-52) 09/13/21 22:08 Alkaline Phosphatase 42 U/L (34-104) 09/13/21 22:08 Total Creatine Kinase 182 U/L (26-192) 09/13/21 22:08 Troponin I High Sens 14.2 pg/ml (0-14) H 09/13/21 22:08 Total Protein 6.4 gm/dl (6.0-8.3) 09/13/21 22:08 Albumin 3.9 gm/dl (3.4-5.0) 09/13/21 22:08 Globulin 2.5 gm/dl (2.5-4.0) 09/13/21 22:08 Albumin/Globulin Ratio 1.6 (0.9-2) 09/13/21 22:08 TSH 3.246 uIu/ml (0.300-4.500) 09/13/21 22:08 Urine Color Yellow 09/13/21 23:31 Urine Appearance Clear (Clear) 09/13/21 23:31 Urine pH 8.5 (4.5-7.5) H 09/13/21 23:31 Ur Specific [place] 1.008 (1.000-1.030) 09/13/21 23:31 Urine Protein Negative (Negative) 09/13/21 23:31 Urine Glucose (UA) Trace (Negative) H 09/13/21 23:31 Urine Ketones Negative (Negative) 09/13/21 23:31 Urine Blood Negative (Negative) 09/13/21 23:31 Urine Nitrite Negative (Negative) 09/13/21 23:31 Urine Bilirubin Negative (Negative) 09/13/21 23: Urine Urobilinogen Negative (Negative) 09/13/21 23:31 Ur Leukocyte Esterase Negative (Negative) 09/13/21 23:31 SARS-CoV-2, RNA, NAAT NEGATIVE (NEGATIVE) 09/13/21 22:50 PG Care Time/CCT Total # of Minutes Spent Total Time Spent with Patient: Total time spent is greater than 50% in coordination of care (as documented) at patient's floor/unit and/or counseling patient: Coding Level of Care Code INT OBSERVATION CARE 70M LVL 3 Diagnoses Generalized muscle weakness M62.81 Fall W19.XXXA Restrictive lung disease J98.4 MARTHA (obstructive sleep apnea) G47.33 Diabetes mellitus, type 2 E11.9 GERD (gastroesophageal reflux disease) K21.9 Hyperlipidemia E78.5 Hypertension I10 Elevated troponin R77.8
[2021-09-14] MEDS ORDERED: CARBOHYDRATES FOR HYPOGLYCEMIA PO PRN (03:04)
[2021-09-14] MEDS ORDERED: ALBUTEROL HFA 8 GM INHALER INH PRN (03:04)
[2021-09-14] MEDS ORDERED: DEXTROSE 50% 50 ML SYRINGE IV PRN (03:04)
[2021-09-14] MEDS ORDERED: GLUCOSE 10 TABS/TUBE PO PRN (03:04)
[2021-09-14] MEDS ORDERED: GLUCOSE 40% GEL 15 GM TUBE PO PRN (03:04)
[2021-09-14] MEDS ORDERED: ACETAMINOPHEN 325 MG TAB PO PRN (03:04)
[2021-09-14] MEDS ORDERED: GLUCAGON FOR INJ 1 MG VIAL SQ PRN (03:04)
[2021-09-14 05:22] LABS: C Reactive Protein < 0.50 mg/dl (0-0.5); Creatine Kinase 186 U/L (26-192); Magnesium 2.1 mg/dl (1.7-2.4)
[2021-09-14 07:05] LABS: Estimated Average Glucose 183 mg/dl
--- NOTE | 2021-09-14 07:18 | CT Scan Report ---
CT head/brain wo con CLINICAL HISTORY: weakness COMPARISON STUDY: No previous studies for comparison. CT DOSE: 537.48 mGy.cm TECHNIQUE: Standard CT of the Brain was performed without IV contrast. A dose lowering technique was utilized adhering to the principles of ALARA. FINDINGS: Extraaxial space: There is no evidence for subdural hematoma. There are no extra-axial fluid collecti ons. Ventricles and cisterns: The ventricles are mildly dilated bilaterally. There is no evidence for midl ine shift or mass effect. Parenchyma: There is no subarachnoid or intraparenchymal hemorrhage. There is no evidence for an acut e infarct or cerebral edema. There is mild cerebral cortical atrophy and decreased attenuation in the periventricular white matter representing remote small vessel disease. There are no gross mass lesio ns. Osseous structures: The patient is status post previous left temporoparietal craniotomy. There is no evidence for an acute fracture. The visualized paranasal sinuses are clear. The mastoid air cells are clear bilaterally. Soft tissues: There is no evidence for focal soft tissue swelling. IMPRESSION: 1. No acute intracerebral pathology. 2. Mild cerebral cortical atrophy and remote small vessel disease. ACT 112: Negative or not required by law. Electronically signed by: David Victor M.D. 09/14/2021 7:17 AM
--- NOTE | 2021-09-14 07:19 | XRay Report ---
XR chest 1V not portable CLINICAL HISTORY: weakness. Evaluate cardiopulmonary status COMPARISON STUDY: 04/13/2019 TECHNIQUE: 1 view of the chest FINDINGS: Single frontal view of the chest demonstrates the cardiomediastinal silhouette to be within normal li mits. The lungs are clear of alveolar opacities. There is no evidence for pleural effusion. There is no evidence for vascular congestion. There is no acute osseous pathology. IMPRESSION: 1. No acute cardiopulmonary disease. ACT 112: Negative or not required by law. Electronically signed by: aDvid Victor M.D. 09/14/2021 7:17 AM
--- NOTE | 2021-09-14 07:56 | XRay Report ---
XR femur LT 2V routine CLINICAL HISTORY: fall COMPARISON: Knee radiographs January 20, 2014. FINDINGS: Calcific densities along the left inferior pubic ramus are chronic. No acute fracture with in the left femur is noted. There is mild joint space narrowing and osteophytosis of the left hip. Th ere is moderate joint space narrowing with osteophytosis of the left knee with chondrocalcinosis. The re is no left knee joint effusion. IMPRESSION: No acute fracture within the left femur. ACT 112: Negative or not required by law. Electronically signed by: Elliot Carey M.D. 09/14/2021 7:54 AM
[2021-09-14] MEDS ORDERED: ASPIRIN 81 MG ECTAB PO SCH ×2 (09:00→21:00)
[2021-09-14] MEDS: METOPROLOL SUCC 25MG EXT REL TAB PO SCH (09:14)
[2021-09-14] MEDS: PANTOprazole 40 MG TAB PO SCH (09:14)
[2021-09-14] MEDS: INSULIN ASPART PER UNIT SC SCH ×4 (09:23→21:16)
[2021-09-14] MEDS: INSULIN GLARGINE SOLOSTAR 100 UNITS/ML 3 ML PEN SC SCH ×2 (09:23→21:12)
[2021-09-14] MEDS ORDERED: Nursing to Pharmacy Communication SCH (09:30)
--- NOTE | 2021-09-14 13:02 | Electrocardiogram Report ---
Test Reason : Blood Pressure : / mmHG Vent. Rate : 089 BPM Atrial Rate : 089 BPM P-R Int : 180 ms QRS Dur : 090 ms QT Int : 336 ms P-R-T Axes : 063 -39 030 degrees QTc Int : 408 ms Poor data quality, interpretation may be adversely affected Normal sinus rhythm Left axis deviation Abnormal ECG When compared with ECG of 29-OCT-2016 08:50, DC interval has decreased Nonspecific T wave abnormality no longer evident in Lateral leads Confirmed by Maikol Muñoz ([id number]) on 09/14/2021 1:01:54 PM Referred By: REFERRED SELF Confirmed By:Stefan Muñoz
--- NOTE | 2021-09-14 17:19 | Hospitalist Progress Note ---
Date of Service September 14, 2021 Assessment & Plan (1) Fall: Plan: Presenting from home after two ground level falls, difficulty getting up requiring assistance from EMS. Patient with diffuse muscle weakness, specifically mentions some discomfort and weakness of her left thigh. Does report some difficulty getting up from a chair at times. - CK, ESR, CRP all normal - No left femur fracture on x-ray on 09/13 - Non-focal neurological exam - Hypomagnesemia may be contributing to diffuse weakness - Replete PRN - PT/OT evaluations appreciated - Recommend SNF vs. home with home health if she can improve while in the hospital. - Tylenol PRN (2) Generalized muscle weakness: Plan: Patient wtih fall x 2 at home secondary to generalized weakness. Low magnesium may be contributing. - Mg repletion - PT/OT/CM evaluations appreciated - Fall precautions (3) Elevated troponin: Plan: HS-troponin mildly elevated at 14.2. Patient denies chest pain. - Repeat troponin 10.9 - Continue home ASA 81 mg PO daily (4) Restrictive lung disease: Plan: Thought to be secondary to patient's obesity. She follows with Pulmonary. Last seen in May 2021. - No inpatient needs (5) MARTHA (obstructive sleep apnea): Plan: Chronic - Continue CPAP qHS 8 cmH20 (6) Diabetes mellitus, type 2: Plan: A1c was 8.0% this admission. - Hold oral agents - Glipizide and Metformin - Lantus 5u BID, ISS - Goal blood sugar 100 - 140 while inpatient -> BSs have been 135 - 170 in last 24 hours. (7) GERD (gastroesophageal reflux disease): Plan: Chronic. - Continue Protonix 40mg po qam (8) Hyperlipidemia: Plan: Chronic - Continue atorvastatin (9) Hypertension: Plan: Blood pressure adequately controlled today at 115/70. - Continue metoprolol - Continue losartan - Monitor (10) DVT prophylaxis: Plan: Lovenox 40 mg SQ daily Admission and Anticipated Discharge Date Admission Date: September 14, 2021 Subjective Still with some pain in the left hip. Not much change from when she came into the hospital. Physical Exam Constitutional: WD/WN, vitals as above Eyes: EOM intact bilaterally; no conjunctival abnormality ENMT: external ear and nose normal, oropharynx normal Neck: trachea midline, no thyromegaly normal visual inspection Respiratory: normal respiratory effort, lungs clear to auscultation no respiratory distress Cardiovascular: RRR, no murmur, no edema Gastrointestinal (Abdomen): Inspection/Auscultation: abdomen normal to inspection; abdomen not distended Musculoskeletal: no cyanosis or clubbing, extremities motor strength 5/5 Skin: no rashes, warm and dry Neurologic: moves all extremities and awake Psychiatric: Orientation: alert, oriented to person and cooperative Results & Data Results & Data ([facility]) Vital Signs (Past 12 Hours) Vital Signs Temp Pulse Resp BP Pulse Ox 09/14/21 14:50 36.7 C 58 L 16 116/67 96 09/14/21 07:29 36.7 C 69 20 130/81 97 PG Care Time/CCT Total # of Minutes Spent Total Time Spent with Patient: Total time spent is greater than 50% in coordination of care (as documented) at patient's floor/unit and/or counseling patient: Coding Level of Care Code 00751 Subseq Hosp Care Lvl 3 Diagnoses Fall W19.XXXA Generalized muscle weakness M62.81 Elevated troponin R77.8 Restrictive lung disease J98.4 MARTHA (obstructive sleep apnea) G47.33 Diabetes mellitus, type 2 E11.9 GERD (gastroesophageal reflux disease) K21.9 Hyperlipidemia E78.5 Hypertension I10 DVT prophylaxis Z29.9
[2021-09-14] MEDS ORDERED: LOSARTAN POTASSIUM 25 MG TAB PO SCH (21:00)
[2021-09-14] MEDS ORDERED: ATORVASTATIN 40 MG TAB PO SCH (21:00)
[2021-09-15 07:29] LABS: Basophils # (auto) 0.01 K/uL (0-0.2); Basophils % (auto) 0.2 %; Eosinophils # (auto) 0.12 K/uL (0-0.5); Hematocrit (blood only) 34.3 % (37-47); Hemoglobin 11.2 g/dL (12.0-16.0); Immature Granulocytes # (auto) 0.02 K/uL (0.00-0.02); Immature Granulocytes % (auto) 0.3 %; Lymphocytes # (auto) 1.48 K/uL (1.2-3.4); Lymphocytes % (auto) 24.2 %; Mean Corpuscular Hemoglobin 28.6 pg (25-34); Mean Corpuscular Hgb Conc 32.7 g/dL (32-36); Mean Corpuscular Volume 87.7 fL (80-100); Mean Platelet Volume 10.3 fL (7.4-10.4); Monocytes # (auto) 0.45 K/uL (0.11-0.59); Monocytes % (auto) 7.4 %; Neutrophils # (auto) 4.04 K/uL (1.4-6.5); Neutrophils % (auto) 65.9 %; Platelet Count 158 K/uL (130-400); RDW Coefficient of Variation 16.2 % (11.5-14.5); RDW Standard Deviation 51.5 fL (36.4-46.3); Red Blood Count 3.91 M/uL (4.2-5.4); White Blood Count 6.12 K/uL (4.8-10.8)
[2021-09-15 08:03] LABS: Calcium 8.6 mg/dl (8.5-10.1); Creatinine Clr Calc Pharmacy 44.9 ml/min; Est GFR (African American) 57.7 ml/min; Est GFR (Non-African American) 49.8 ml/min; Magnesium 1.8 mg/dl (1.7-2.4); Phosphorus 3.4 mg/dl (2.5-4.9); Potassium 4.1 mmol/L (3.5-5.1)
[2021-09-15] MEDS: INSULIN GLARGINE SOLOSTAR 100 UNITS/ML 3 ML PEN SC SCH (08:50)
[2021-09-15] MEDS: PANTOprazole 40 MG TAB PO SCH (08:50)
[2021-09-15] MEDS: METOPROLOL SUCC 25MG EXT REL TAB PO SCH (08:50)
[2021-09-15] MEDS: INSULIN ASPART PER UNIT SC SCH ×2 (08:50→13:15)
== END 2021-09-15 15:54 | disposition home health service (06) ==
LOC: ED 21:57 → 3W 21:57 → SUATTDRO 09-14 01:10 → 3W 09-14 02:06

== ENCOUNTER 2021-11-07 14:47 | Inpatient (IN) ==
[2021-11-07] MEDS ORDERED: metroNIDAZOLE 500 MG/100 ML BAG IV STA (15:28)
[2021-11-07] MEDS ORDERED: cefTRIAXone SODIUM 1,000 MG/50 ML BAG IV STA (15:28)
--- NOTE | 2021-11-07 15:35 | Emergency Department Note ---
History of Present Illness General Chief complaint: Animal Bite Stated complaint: BIT BY DOG ON R HAND Time Seen by Provider: 11/07/21 15:07 History of Present Illness Maximum Pain Intensity: 5 This is a [id number] 81-year-old female with a history of type 2 diabetes who presents with concern for infection in her right hand secondary to a dog bite that occurred 3 days ago. They are fostering a puppy for possible adoption. They were told the dogs immunizations are up-to-date, although they do not have papers. She was playing tug-of-war with the dog 3 days ago and it accidentally bit her on the right thumb. She was seen at [facility] that day. X-ray was performed and she states no fracture was identified. Multiple lacerations were noted, and 2 of them were closed with 1 suture each. She was placed on clindamycin due to her allergy to penicillin. She has been taking this without any adverse reaction. Yesterday she noticed an increase in pain and swelling above her thumb. She applied a cool compress and took Tylenol which helped somewhat. This morning she woke up and the redness and swelling had progressed further up her hand so she went back to [facility] and they referred her to the emergency department. She endorses some decreased range of motion in the thumb from swelling. She denies any red streak traveling up her arm, fevers, chills, body aches, nausea, vomiting, and feels fine otherwise. Tetanus shot was updated several days ago. Home Medications Medication Instructions Recorded Confirmed Type atorvastatin 40 mg tablet 40 mg PO PM 01/27/20 11/07/21 History glipizide 10 mg tablet 10 mg PO BID 01/27/20 11/07/21 History losartan 25 mg tablet 25 mg PO QPM 01/27/20 11/07/21 History metformin 1,000 mg tablet 1,000 mg PO BID 01/27/20 11/07/21 History pantoprazole 40 mg tablet,delayed 40 mg PO QAM 01/27/20 11/07/21 History release aspirin 81 mg tablet,delayed 81 mg PO QPM 01/04/21 11/07/21 History release cholecalciferol (vitamin D3) 25 25 mcg PO DAILY 01/04/21 11/07/21 History mcg (1,000 unit) capsule coenzyme Q10 100 mg capsule 200 mg PO DAILY 01/04/21 11/07/21 History (CoQ-10) CPAP Machine #1 ea 02/01/21 11/07/21 Rx CPAP Supplies #1 ea 06/06/21 11/07/21 Rx Incentive Spirometer #1 ea 06/06/21 11/07/21 Rx levocetirizine 5 mg tablet 5 mg PO DAILY PRN allergy symptoms 06/06/21 11/07/21 Rx #30 tabs albuterol sulfate 90 mcg/actuation 2 puff inhalation Q6H PRN 06/13/21 11/07/21 Rx aerosol inhaler shortness of breath or wheezing #1 inhaler metoprolol succinate 25 mg 25 mg PO DAILY 09/13/21 11/07/21 History tablet,extended release 24 hr magnesium oxide 500 mg capsule 500 mg PO BID #30 caps 09/15/21 11/07/21 Rx calcium carbonate 600 mg calcium 600 mg PO DAILY 11/07/21 11/07/21 History (1,500 mg) tablet (Calcium) cholecalciferol (vitamin D3) 25 25 mcg PO DAILY 11/07/21 11/07/21 History mcg (1,000 unit) tablet (Vitamin D3) cyanocobalamin (vitamin B-12) 1,000 mcg PO DAILY 11/07/21 11/07/21 History 1,000 mcg tablet (Vitamin B-12) famotidine 20 mg tablet 20 mg PO BID 11/07/21 11/07/21 History ferrous sulfate 142 mg (45 mg 0 mg PO DAILY 11/07/21 11/07/21 History iron) tablet,extended release (Slow Fe) Allergies Allergy/AdvReac Type Severity Reaction Status Date / Time codeine Allergy Severe ANAPHALAXIS Verified 11/07/21 19:10 Penicillins Allergy Unknown REACTION Verified 11/07/21 19:10 CHILD, FAMILY HX OF REACTION lisinopril AdvReac Mild cough Verified 11/07/21 19:10 oyster extract AdvReac Mild NAUSEA/VOMI Verified 09/13/21 22:33 TTING Past Med/Surg History Medical History Asthma HAS NOT USED RESCUE INHALER FOR A WHILE Diabetes mellitus, type 2 GERD (gastroesophageal reflux disease) Hx of meningioma of the brain Hyperlipidemia Hypertension Osteoarthritis Peripheral neuropathy Seasonal allergies Sleep apnea DOES NOT USE DEVICE "CURRENTLY" Thyroid cyst THYROID GROWTH (HX BIOPSY) Surgical History History of anesthesia reaction PLEASE SEE VOCAL CORD PARALYSIS NOTE History of cataract surgery RT/LEFT History of colonoscopy History of dilatation and curettage X 2 History of tooth extraction Hx of craniotomy DURING PROCEURE NICKED VOCAL CORD (2019) [facility] [place] 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 D/T CORRECTIVE SURGERY VOCAL CORD CORRECTION USING FAT FROM ABDOMEN TO BUILD UP THE VOCAL CORD ([facility]) Retinal tear of both eyes LASER RT/LEFT Family History Father Family hx of colon cancer Family history of diabetes mellitus Other Cancer Heart disease Tuberculosis Denies family history of Asthma Social History Smoking Status: Never smoker Second Hand Exposure: No; Hx Alcohol Use: No Hx Substance Use: No Preferred Language: Sinhala Communication Ability: Effective Customer Contact Representative Required: No Beliefs That Will Affect Care: Orthodoxy Orthodoxy Beliefs: Gnosticist marital status: Current Living Situation: Spouse Feels Safe at Home: Yes Assistive Devices: Cane and Walker Review of Systems See HPI for pertinent positives & negatives. and A total of 10 systems reviewed and were otherwise negative Physical Exam Vital Signs Vital Signs - 24 hr 11/07/21 14:48 Temperature 97.9 F Temperature Source Temporal Artery Scan Pulse Rate 82 Respiratory Rate 18 Respiratory Effort / Characteristics Non-Labored Respiratory Depth Normal Blood Pressure 127/77 Blood Pressure Mean 93 Pulse Oximetry 98 Oxygen Delivery Method Room Air Sepsis Recent Fever Within 48 Hours No Sepsis New/Unexplained Change in Mental Status No Sepsis Action Taken by Nursing No Action Required CONSTITUTIONAL: Well developed, well nourished. Self splinting right hand HEAD: Normocephalic, atraumatic. NECK: Full active range of motion. LYMPHATIC: No axillary adenopathy. RESPIRATORY: Breathing unlabored and symmetric. CARDIOVASCULAR: radial pulses 2+ bilaterally MUSCULOSKELETAL: Right hand: Multiple healing 1 cm lacerations present on the ulnar and radial as pects of the thumb. 1 sutures placed through each of the lacerations. There is no discharge from the lacerations, this area is largely nontender. Proximal to the lacerations there is erythema, warmth, and significant tenderness extending along the radial aspect of the hand to the wrist extending over the thenar eminence. No lymphatic streaking. Patient able to flex at the interphalangeal joint of the thumb although range of motion is limited. She is able to extend the thumb at the MCP joint although this is also reduced. Wrist with full range of motion. SKIN: [place], warm, dry. NEUROLOGIC: Alert and oriented x 3. No acute motor or sensory deficits in bilateral thumbs. PSYCHIATRIC: Appropriate. Normal affect. Course Consultations Consultation #1: Case was discussed with Dr. Bay (orthopedics). He agrees there is no indication for CT scan at this time. States that these generally do well with IV antibiotics and patient will be unlikely to require or intervention however should she require this, he would be comfortable performing this procedure. He recommends Zosyn and agrees that the patient's allergy to penicillin is a soft allergy. Administered Medications Acetaminophen (Acetaminophen 325 Mg Tab) 650 mg PO Q4H PRN PRN Reason: mild-modpain/fever (100.4 F or Stop: 12/07/21 20:56 Last Admin: 11/07/21 21:11 Dose: 650 mg Documented By: JOSEPH Atorvastatin Calcium (Atorvastatin 40 Mg Tab) 40 mg PO PM BERTIN Stop: 12/07/21 20:59 Last Admin: 11/07/21 22:39 Dose: 40 mg Documented By: JOSEPH Famotidine (Famotidine 20 Mg Tab) 20 mg PO BID BERTIN Stop: 12/07/21 21:59 Last Admin: 11/07/21 22:38 Dose: 20 mg Documented By: JOSEPH Piperacillin Sod/Tazobactam (Sod 3.375 gm/ Dextrose) 115 mls @ 28.75 mls/hr IV Q8H BERTIN; Protocol Stop: 11/14/21 22:59 Last Admin: 11/07/21 22:42 Dose: 28.8 mls/hr Documented By: JOSEPH Insulin Aspart (Insulin Aspart Per Unit) 0 units SC ACHS BERTIN Stop: 12/07/21 20:59 Last Admin: 11/07/21 20:30 Dose: Not Given Documented By: ES Magnesium Oxide (Magnesium Oxide 400 Mg Tab) 400 mg PO BID BERTIN Stop: 12/07/21 21:59 Last Admin: 11/07/21 22:38 Dose: 400 mg Documented By: AMSylvia Discontinued Medications Aspirin (Aspirin 81 Mg Chew) 81 mg PO NOW STA Stop: 11/07/21 21:55 Last Admin: 11/07/21 22:40 Dose: 81 mg Documented By: JOSEPH Ceftriaxone Sodium (Rocephin) 1,000 mg in 50 mls @ 100 mls/hr IV NOW STA Stop: 11/07/21 15:57 Last Infusion: 11/07/21 16:52 Dose: 0 mls/hr Documented By: Admin: 11/07/21 16:13 Dose: 100 mls/hr Documented By: ROCK Metronidazole (Flagyl) 500 mg in 100 mls @ 100 mls/hr IV NOW STA Stop: 11/07/21 16:27 Last Infusion: 11/07/21 18:00 Dose: 0 mls/hr Documented By: Admin: 11/07/21 16:41 Dose: 100 mls/hr Documented By: ROCK Piperacillin Sod/Tazobactam (Sod 3.375 gm/ Dextrose) 115 mls @ 230 mls/hr IV NOW ONE; Protocol Stop: 11/07/21 17:59 Last Infusion: 11/07/21 19:04 Dose: 0 mls/hr Documented By: Admin: 11/07/21 18:01 Dose: 230 mls/hr Documented By: ROCK Medical Decision Making Differential Diagnosis Cellulitis, gas-forming infection, abscess, flexor tenosynovitis, fracture, foreign body, among other pathology Medical Records Attestation: I reviewed the patient's medical records. Laboratory Data Result diagrams: 11/07/21 15:44 11/07/21 15:44 Lab Results 11/07/21 11/07/21 11/07/21 Range/Units 15:14 15:44 15:44 WBC 12.50 H (4.8-10.8) K/ul RBC 4.47 (3.93-5.22) M/uL Hgb 13.3 (12.0-16.0) g/dl Hct 40.5 (34.1-44.9) % MCV 90.6 (80.0-100.0) fL MCH 29.8 (25.0-34.0) pg MCHC 32.8 (32.0-36.0) g/dL RDW Std Deviation 51.8 H (36.4-46.3) fL RDW Coeff of Bo 15.7 H (11.5-14.5) % Plt Count 223 (130-400) K/uL MPV 10.2 (9.4-12.3) fL Immature Gran % (Auto) 0.3 % Neut % (Auto) 78.4 % Lymph % (Auto) 13.2 % [place] % (Auto) 7.4 % Eos % (Auto) 0.5 % Baso % (Auto) 0.2 % Neut # (Auto) 9.79 H (1.4-6.5) K/uL Lymph # (Auto) 1.65 (1.2-3.4) K/uL [place] # (Auto) 0.93 H (0.24-0.82) K/uL Eos # (Auto) 0.06 (0-0.50) K/uL Baso # (Auto) 0.03 (0-0.2) K/uL Immature Gran # (Auto) 0.04 H (0.00-0.02) K/uL ESR (0-30) mm/hr Sodium 139 (136-145) mmol/L Potassium 4.3 (3.5-5.1) mmol/L Chloride 104 (98-107) mmol/L Carbon Dioxide 25 (21-32) mmol/L Anion Gap 10 (3-11) BUN 16 (6-23) mg/dl Creatinine 1.02 (0.6-1.2) mg/dl Est Cr Clr Drug Dosing 46.1 ml/min Est GFR ( Amer) 59.7 ml/min Est GFR (Non-Af Amer) 51.5 ml/min BUN/Creatinine Ratio 15.7 (10-20) Glucose 137 H (70-99(Fasting)) mg/dl Calcium 10.2 H (8.5-10.1) mg/dl Total Bilirubin 1.0 (0.2-1.0) mg/dl AST 12 L (13-39) U/L ALT 14 (7-52) U/L Alkaline Phosphatase 49 (34-104) U/L C-Reactive Protein (0-0.5) mg/dl Total Protein 7.0 (6.0-8.3) gm/dl Albumin 4.3 (3.4-5.0) gm/dl Globulin 2.7 (2.5-4.0) gm/dl Albumin/Globulin Ratio 1.6 (0.9-2) SARS-CoV-2, RNA, NAAT NEGATIVE (NEGATIVE) 11/07/21 11/07/21 Range/Units 16:01 16:01 WBC (4.8-10.8) K/ul RBC (3.93-5.22) M/uL Hgb (12.0-16.0) g/dl Hct (34.1-44.9) % MCV (80.0-100.0) fL MCH (25.0-34.0) pg MCHC (32.0-36.0) g/dL RDW Std Deviation (36.4-46.3) fL RDW Coeff of Bo (11.5-14.5) % Plt Count (130-400) K/uL MPV (9.4-12.3) fL Immature Gran % (Auto) % Neut % (Auto) % Lymph % (Auto) % [place] % (Auto) % Eos % (Auto) % Baso % (Auto) % Neut # (Auto) (1.4-6.5) K/uL Lymph # (Auto) (1.2-3.4) K/uL [place] # (Auto) (0.24-0.82) K/uL Eos # (Auto) (0-0.50) K/uL Baso # (Auto) (0-0.2) K/uL Immature Gran # (Auto) (0.00-0.02) K/uL ESR 30 (0-30) mm/hr Sodium (136-145) mmol/L Potassium (3.5-5.1) mmol/L Chloride (98-107) mmol/L Carbon Dioxide (21-32) mmol/L Anion Gap (3-11) BUN (6-23) mg/dl Creatinine (0.6-1.2) mg/dl Est Cr Clr Drug Dosing ml/min Est GFR ( Amer) ml/min Est GFR (Non-Af Amer) ml/min BUN/Creatinine Ratio (10-20) Glucose (70-99(Fasting)) mg/dl Calcium (8.5-10.1) mg/dl Total Bilirubin (0.2-1.0) mg/dl AST (13-39) U/L ALT (7-52) U/L Alkaline Phosphatase (34-104) U/L C-Reactive Protein 3.05 H (0-0.5) mg/dl Total Protein (6.0-8.3) gm/dl Albumin (3.4-5.0) gm/dl Globulin (2.5-4.0) gm/dl Albumin/Globulin Ratio (0.9-2) SARS-CoV-2, RNA, NAAT (NEGATIVE) Imaging Data Attestation: I personally reviewed and interpreted this imaging study as follows: My Impression: I agree with the radiologist's interpretation Radiologist's Impression: Hand X-Ray 11/07/21 15:41 XR hand RT min 3V routine CLINICAL HISTORY: infected dog bite prox to right thumb COMPARISON: None FINDINGS: No acute fracture is identified. There is no radiographic evidence for acute osteomyelitis. There is soft tissue swelling at the base of the right thumb. Severe osteoarthritis of the right first carpometacarpal joint is noted. There is also severe osteoarthritis of multiple distal interphalangeal joints, most pronounced within the second digit. There is chondrocalcinosis within the TFCC. IMPRESSION: 1. No acute fracture. No evidence for acute osteomyelitis. 2. Soft tissue swelling at the base of the right thumb. 3. Severe osteoarthritis within multiple articulations of the right wrist and fingers. ACT 112: Negative or not required by law. Electronically signed by: Elliot Carey M.D. 11/07/2021 4:16 PM MDM Narrative [id number] 81-year-old female presents with a history and examination consistent with progressive infection in the right hand secondary to a dog bite that occurred 3 days ago despite taking clindamycin outpatient. Not placed on Augmentin due to questionable allergy to penicillins. She has significant tenderness over the thenar eminence with heat, erythema extending towards the wrist. No obvious evidence of flexor tenosynovitis. No systemic symptoms, afebrile, not tachycardic. X-ray of the hand demonstrates no foreign bodies or gas. Patient was given doses of IV ceftriaxone and IV Flagyl in the emergency department. Based on age and history of diabetes, patient is essentially failing outpatient management although should have also been placed on Flagyl in addition to clindamycin. Case was discussed with ED attending Dr. Nevarez who agrees patient would benefit from admission for ongoing IV antibiotics. I spoke with Dr. Hernandez and his PA Shahzad evaluated the patient at bedside. They requested a CT scan prior to admission and requested that I speak with orthopedics. I spoke with orthopedics as described above who agrees there is no indication for CT at this time, and made specific recommendations as described above. Patient will be admitted for IV antibiotics and close monitoring. Impression & Plan Dog bite of right hand including fingers with infection, Cellulitis of hand, right Discharge Plan Visit Data Chief Complaint: Animal Bite Stated Complaint: BIT BY DOG ON R HAND ED Provider: Dilip Nevarez ED Midlevel Provider: Marino Cruz Discharge Problem: Dog bite of right hand including fingers with infection, Cellulitis of hand, right Patient Disposition: Admitted As Inpatient Discharge Instructions Interventions: ED Discharge Assessment Last Done: 11/07/21 20:20 : Dog bite of right hand including fingers with infection Qualifiers: Encounter type: initial encounter Qualified Code(s): S61.451A - Open bite of right hand, initial encounter
[2021-11-07 15:57] LABS: Basophils # (auto) 0.03 K/uL (0-0.2); Basophils % (auto) 0.2 %; Eosinophils # (auto) 0.06 K/uL (0-0.50); Eosinophils % (auto) 0.5 %; Hematocrit (blood only) 40.5 % (34.1-44.9); Hemoglobin 13.3 g/dl (12.0-16.0); Immature Granulocytes # (auto) 0.04 K/uL (0.00-0.02); Immature Granulocytes % (auto) 0.3 %; Lymphocytes # (auto) 1.65 K/uL (1.2-3.4); Lymphocytes % (auto) 13.2 %; Mean Corpuscular Hemoglobin 29.8 pg (25.0-34.0); Mean Corpuscular Hgb Conc 32.8 g/dL (32.0-36.0); Mean Corpuscular Volume 90.6 fL (80.0-100.0); Mean Platelet Volume 10.2 fL (9.4-12.3); Monocytes # (auto) 0.93 K/uL (0.24-0.82); Monocytes % (auto) 7.4 %; Neutrophils # (auto) 9.79 K/uL (1.4-6.5); Neutrophils % (auto) 78.4 %; Platelet Count 223 K/uL (130-400); RDW Coefficient of Variation 15.7 % (11.5-14.5); RDW Standard Deviation 51.8 fL (36.4-46.3); Red Blood Count 4.47 M/uL (3.93-5.22)
--- NOTE | 2021-11-07 16:17 | XRay Report ---
XR hand RT min 3V routine CLINICAL HISTORY: infected dog bite prox to right thumb COMPARISON: None FINDINGS: No acute fracture is identified. There is no radiographic evidence for acute osteomyelitis . There is soft tissue swelling at the base of the right thumb. Severe osteoarthritis of the right fi rst carpometacarpal joint is noted. There is also severe osteoarthritis of multiple distal interphala ngeal joints, most pronounced within the second digit. There is chondrocalcinosis within the TFCC. IMPRESSION: 1. No acute fracture. No evidence for acute osteomyelitis. 2. Soft tissue swelling at the base of the right thumb. 3. Severe osteoarthritis within multiple articulations of the right wrist and fingers. ACT 112: Negative or not required by law. Electronically signed by: Elliot Carey M.D. 11/07/2021 4:16 PM
[2021-11-07 16:29] LABS: Albumin Globulin Ratio 1.6 (0.9-2); Albumin Level 4.3 gm/dl (3.4-5.0); BUN Creatinine Ratio 15.7 (10-20); Calcium 10.2 mg/dl (8.5-10.1); Creatinine Clr Calc Pharmacy 46.1 ml/min; Est GFR (African American) 59.7 ml/min; Est GFR (Non-African American) 51.5 ml/min; Globulin 2.7 gm/dl (2.5-4.0); Potassium 4.3 mmol/L (3.5-5.1)
[2021-11-07] MEDS ORDERED: DEXTROSE 50% 50 ML SYRINGE IV PRN (17:14)
[2021-11-07] MEDS ORDERED: GLUCOSE 40% GEL 15 GM TUBE PO PRN (17:14)
[2021-11-07] MEDS ORDERED: CARBOHYDRATES FOR HYPOGLYCEMIA PO PRN (17:14)
[2021-11-07] MEDS ORDERED: GLUCAGON FOR INJ 1 MG VIAL SQ PRN (17:14)
[2021-11-07] MEDS ORDERED: GLUCOSE 10 TAB/TUBE PO PRN (17:14)
[2021-11-07] MEDS ORDERED: PIPERACILLIN/TAZOBACTAM 3.375 GM in DEXTROSE 5% 100 ML IV ONE (17:30)
--- NOTE | 2021-11-07 17:32 | History & Physical Report ---
Date of Service November 07, 2021 Assessment & Plan (1) Dog bite of right hand including fingers with infection: Plan: -Was initially placed on PO clindamycin after wound was sutured on 11/04/21 at [facility] -Patient failed outpatient therapy, although Clindamycin likely was not broad enough -Xray of right hand shows soft tissues swelling but negative for OM -Was given ceftriaxone and flagyl in the ED -Adding on blood cultures now but patient has already received antibiotics in the ER -Ortho will follow and recommends Zosyn, will order now -If needed, Ortho said they can take her to the OR for I&D -Tylenol for pain and can escalate as needed (2) Cellulitis of hand, right: Plan: -See above (3) Hypertension: Plan: -Currently hemodynamically stable -Will hold [employer] metoprolol and Losartan for now due to current infection to prevent hypotension, can re-start as needed (4) Hyperlipidemia: Plan: -[employer] atorvastatin (5) GERD (gastroesophageal reflux disease): Plan: -[employer] PPI (6) Diabetes mellitus, type 2: Plan: -Hold [employer] Glipizide and Metformin -Hold basal insulin for now, can add if needed --Goal BSG Range: Low 110 mg/dL, High 140 mg/dL --Correction Factor: 25 mg/dL/unit --Carbohydrate ratio = 10g/unit (7) Restrictive lung disease: Plan: -[employer] albuterol (8) MRATHA (obstructive sleep apnea): Plan: -Will order HS Cpap (9) Morbid obesity: Plan: -Encourage weight loss History of Present Illness Chief Complaint: Worsening right hand swelling & pain Primary Care Provider: Vince Skinner MD Svitlana is an 81 year old female with a PMH significant for DM II, Hypomagnesemia, restrictive lung disease, MARTHA on CPAP, morbid obesity, S/P removal of 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 Per the patient, she is currently fostering a dog and was playing Tug-of-War with it on 11/04/21. During this time her dog accidentally bit the proximal right thumb causing a laceration. She went to [facility] where she received sutures and was placed on Clindamycin due to previous history of penicillin allergy in her family. She was taking the Clindamycin as prescribed however her right hand has continued to swell. She has reduced ROM in her right thumb due to swelling and pain. She denies any recent fevers, chills, or drainage from her laceration site. In the ED she was noted to have a leukocytosis of 12.5 with a left shift of 9.79. Xray of the right hand was negative for acute trauma or OM but did reveal soft tissue swelling. She was given one dose of ceftriaxone and flagyl and orthopedics was contacted. They recommended admission for IV antibiotics and possible I&D if needed. Orthopedics confirmed that they would be comfortable taking her to the OR for I&D if needed this admission. Allergies Allergy/AdvReac Type Severity Reaction Status Date / Time codeine Allergy Severe ANAPHALAXIS Verified 09/13/21 22:33 Penicillins Allergy Unknown REACTION Verified 09/13/21 22:33 CHILD, FAMILY HX OF REACTION lisinopril AdvReac Mild cough Verified 09/13/21 22:33 oyster extract AdvReac Mild NAUSEA/VOMI Verified 09/13/21 22:33 TTING Home Medications Medication Instructions Recorded Confirmed Type atorvastatin 40 mg tablet 40 mg PO PM 01/27/20 09/13/21 History glipizide 10 mg tablet 10 mg PO BID 01/27/20 09/13/21 History losartan 25 mg tablet 25 mg PO QPM 01/27/20 09/13/21 History metformin 1,000 mg tablet 1,000 mg PO BID 01/27/20 09/13/21 History pantoprazole 40 mg tablet,delayed 40 mg PO QAM 01/27/20 09/13/21 History release aspirin 81 mg tablet,delayed 81 mg PO DAILY 01/04/21 09/13/21 History release calcium citrate 200 mg (950 mg) 200 mg PO DAILY 01/04/21 09/13/21 History tablet cholecalciferol (vitamin D3) 25 25 mcg PO DAILY 01/04/21 09/13/21 History mcg (1,000 unit) capsule coenzyme Q10 100 mg capsule 200 mg PO DAILY 01/04/21 09/13/21 History (CoQ-10) CPAP Machine #1 ea 02/01/21 Rx CPAP Supplies #1 ea 06/06/21 06/06/21 Rx Incentive Spirometer #1 ea 06/06/21 06/06/21 Rx levocetirizine 5 mg tablet 5 mg PO DAILY PRN allergy symptoms 06/06/21 09/13/21 Rx #30 tabs albuterol sulfate 90 mcg/actuation 2 puff inhalation Q6H PRN 06/13/21 09/13/21 Rx aerosol inhaler shortness of breath or wheezing #1 inhaler metoprolol succinate 25 mg 25 mg PO DAILY 09/13/21 09/13/21 History tablet,extended release 24 hr magnesium oxide 500 mg capsule 500 mg PO BID #30 caps 09/15/21 Rx Past Med/Surg History Medical History Asthma HAS NOT USED RESCUE INHALER FOR A WHILE Diabetes mellitus, type 2 GERD (gastroesophageal reflux disease) Hx of meningioma of the brain Hyperlipidemia Hypertension Osteoarthritis Peripheral neuropathy Seasonal allergies Sleep apnea DOES NOT USE DEVICE "CURRENTLY" Thyroid cyst THYROID GROWTH (HX BIOPSY) Surgical History History of anesthesia reaction PLEASE SEE VOCAL CORD PARALYSIS NOTE History of cataract surgery RT/LEFT History of colonoscopy History of dilatation and curettage X 2 History of tooth extraction Hx of craniotomy DURING PROCEURE NICKED VOCAL CORD (2019) [facility] IN [place] 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 D/T CORRECTIVE SURGERY VOCAL CORD CORRECTION USING FAT FROM ABDOMEN TO BUILD UP THE VOCAL CORD ([facility]) Retinal tear of both eyes LASER RT/LEFT Family History Father Family hx of colon cancer Family history of diabetes mellitus Other Cancer Heart disease Tuberculosis Denies family history of Asthma Social History Smoking Status: Never smoker Second Hand Exposure: Yes ( A CHILD); Hx Alcohol Use: No Hx Substance Use: No Preferred Language: Libyan Communication Ability: Effective Case Mgr Required: No Beliefs That Will Affect Care: None marital status: Current Living Situation: Spouse Feels Safe at Home: Yes Assistive Devices: Cane and Walker Review of Systems Constitutional: no fever, no chills, no fatigue and no weakness Eyes: no diplopia and no worsening vision Ear, Nose, Mouth, Throat: as per Subjective / HPI Respiratory: no cough and no dyspnea Cardiovascular: no chest pain and no palpitations Gastrointestinal: no abdominal pain, no vomiting and no diarrhea/loose stools Musculoskeletal: + joint pain (Of right thumb ), + swelling (Of right hand ) and + limited range of motion (Of right hand ) Neurologic: as per Subjective / HPI Psychiatric: as per Subjective / HPI Endocrine: as per Subjective / HPI Hematologic / Lymphatic: as per Subjective / HPI Physical Exam Constitutional: WD/WN, vitals as above Eyes: PERRL, conjunctivae normal, anicteric sclerae ENMT: external ear and nose normal, oropharynx normal Respiratory: normal respiratory effort, lungs clear to auscultation Cardiovascular: RRR, no murmur, no edema Gastrointestinal (Abdomen): normal bowel sounds, soft, nontender, no hepatosplenomegaly Musculoskeletal: Patient with significant swelling, erythema, and warmth of at and proximal to the right thumb, no sinus tracking noted, patient with reduced ROM of right thumb due to pain and swelling, no signs of drainage at the previously sutured right thumb laceration Skin: See musculoskeletal Neurologic: PERRL, EOMI, accommodation nl, no face palsy, no dysarthria Psychiatric: A+Ox3, euthymic affect Results & Data Results & Data ([facility]) Vital Signs (Past 12 Hours) Vital Signs Temp Pulse Resp BP Pulse Ox O2 Del Method 11/07/21 14:48 36.6 C 82 18 127/77 98 Room Air Laboratory Results Abnormal lab results 11/07/21 11/07/21 11/07/21 Range/Units 15:44 15:44 16:01 WBC 12.50 H (4.8-10.8) K/ul RDW Std Deviation 51.8 H (36.4-46.3) fL RDW Coeff of Bo 15.7 H (11.5-14.5) % Neut # (Auto) 9.79 H (1.4-6.5) K/uL Bucks # (Auto) 0.93 H (0.24-0.82) K/uL Immature Gran # (Auto) 0.04 H (0.00-0.02) K/uL Glucose 137 H (70-99(Fasting)) mg/dl Calcium 10.2 H (8.5-10.1) mg/dl AST 12 L (13-39) U/L C-Reactive Protein 3.05 H (0-0.5) mg/dl Diagnostic Findings Hand X-Ray 11/07/21 15:41 XR hand RT min 3V routine CLINICAL HISTORY: infected dog bite prox to right thumb COMPARISON: None FINDINGS: No acute fracture is identified. There is no radiographic evidence for acute osteomyelitis. There is soft tissue swelling at the base of the right thumb. Severe osteoarthritis of the right first carpometacarpal joint is noted. There is also severe osteoarthritis of multiple distal interphalangeal joints, most pronounced within the second digit. There is chondrocalcinosis within the TFCC. IMPRESSION: 1. No acute fracture. No evidence for acute osteomyelitis. 2. Soft tissue swelling at the base of the right thumb. 3. Severe osteoarthritis within multiple articulations of the right wrist and fingers. ACT 112: Negative or not required by law. Electronically signed by: Elliot Carey M.D. 11/07/2021 4:16 PM Medications Administered Current Inpatient Medications Dextrose (Dextrose 50% 50 Ml Syringe) 25 - 50 ml IV UD PRN; Protocol PRN Reason: Hypoglycemia Protocol Stop: 12/07/21 17:13 Glucagon (Glucagon For Inj 1 Mg Vial) 1 mg SQ UD PRN; Protocol PRN Reason: Hypoglycemia Protocol Stop: 12/07/21 17:13 Glucose (Glucose 40% Gel 15 Gm Tube) 15 - 30 gm PO UD PRN; Protocol PRN Reason: Hypoglycemia Protocol Stop: 12/07/21 17:13 Glucose (Glucose 10 Tab/Tube) 4 - 8 tab PO UD PRN; Protocol PRN Reason: Hypoglycemia Treatment Stop: 12/07/21 17:13 Piperacillin Sod/Tazobactam (Sod 3.375 gm/ Dextrose) 115 mls @ 28.75 mls/hr IV Q8H BERTNI; Protocol Stop: 11/14/21 22:59 Insulin Aspart (Insulin Aspart Per Unit) 0 units SC ACHS BERTIN Stop: 12/07/21 20:59 Miscellaneous (Carbohydrates For Hypoglycemia ) 15 - 30 gm PO UD PRN PRN Reason: Hypoglycemia Protocol Stop: 12/07/21 17:13 ECG Additional Comments: Poor data quality, interpretation may be adversely affected Normal sinus rhythm Left axis deviation Abnormal ECG When compared with ECG of 29-OCT-2016 08:50, CT interval has decreased Nonspecific T wave abnormality no longer evident in Lateral leads Confirmed by Wanda, Christopher ([id number]) on 09/14/2021 1:01:54 PM Code Status & VTE Plan Code Status Full code VTE Prophylaxis Plan VTE Prophylaxis will be ordered: Yes Supervising Physician Co-Signing Physician Notes Review medical record discussed case with REVA. Agree with note above. Patient was initially seen at urgent care after suffering a dog bite. She was started on p.o. clindamycin the wounds were sutured on 11[facility] Unfortunately, patient's edema worsened. On investigation here, she did significant leukocytosis. Patient was on oral clindamycin, we will grade this to Zosyn. We did asked orthopedics to evaluate. They are recommending no need for further imaging at this time. Will continue monitoring for improvement, consider CT scan if edema worsens. PG Care Time/CCT Total # of Minutes Spent Total Time Spent with Patient: Total time spent is greater than 50% in coordination of care (as documented) at patient's floor/unit and/or counseling patient: Coding Level of Care Code 21605 Initial Inpt Care Lvl 2 Diagnoses Dog bite of right hand including fingers with infection S61.451A; S61.259A; L08.9; W54.0XXA Encounter type: initial encounter Cellulitis of hand, right L03.113 Hypertension I10 Hyperlipidemia E78.5 GERD (gastroesophageal reflux disease) K21.9 Diabetes mellitus, type 2 E11.9 Restrictive lung disease J98.4 MARTHA (obstructive sleep apnea) G47.33 Morbid obesity E66.01 (1) Dog bite of right hand including fingers with infection Encounter type: initial encounter Qualified Code(s): S61.451A - Open bite of right hand, initial encounter; S61.259A - Open bite of unspecified finger without damage to nail, initial encounter; L08.9 - Local infection of the skin and subcutaneous tissue, unspecified; W54.0XXA - Bitten by dog, initial encounter
[2021-11-07] MEDS: INSULIN ASPART PER UNIT SC SCH (20:30)
[2021-11-07] MEDS ORDERED: ALBUTEROL HFA 8 GM INHALER INH PRN (20:57)
[2021-11-07] MEDS ORDERED: ACETAMINOPHEN 325 MG TAB PO PRN (20:57)
[2021-11-07] MEDS ORDERED: ASPIRIN 81 MG CHEW PO STA (21:54)
[2021-11-07] MEDS: FAMOTIDINE 20 MG TAB PO SCH (22:38)
[2021-11-07] MEDS: MAGNESIUM OXIDE 400 MG TAB PO SCH (22:38)
[2021-11-07] MEDS: ATORVASTATIN 40 MG TAB PO SCH (22:39)
[2021-11-07] MEDS: PIPERACILLIN/TAZOBACTAM 3.375 GM in DEXTROSE 5% 100 ML IV SCH (22:42)
[2021-11-08] MEDS: PIPERACILLIN/TAZOBACTAM 3.375 GM in DEXTROSE 5% 100 ML IV SCH ×2 (06:05→14:13)
--- NOTE | 2021-11-08 07:00 | Orthopedic Consultation ---
Date of Service November 08, 2021 Assessment & Plan (1) Dog bite of right hand including fingers with infection: She is dealing with some cellulitis of her right hand. I do not see any evidence of tenosynovitis or abscess collection that would require an I&D. This should be able to be treated with some IV antibiotics until she notices some improvement in the hospital and then she can be discharged home on oral antibiotics. Follow-up with orthopedics only as necessary. History of Present Illness Reason for Consultation: Dog bite of the right hand. Requesting Physician: . Attending Physician: Luis Hernandez DO Svitlana is a pleasant 81-year-old female who was fostering a dog. She was playing tug of war with the dog 4 days ago when the dog accidentally bit her right thumb. She did have pain. She went to [facility] and was started on clindamycin due to a childhood penicillin allergy. Unfortunately she continued to have pain and swelling. She came to the emergency room yesterday. She was admitted to the medical service and started on Zosyn. Orthopedics was consulted to evaluate. Allergies Allergy/AdvReac Type Severity Reaction Status Date / Time codeine Allergy Severe ANAPHALAXIS Verified 11/07/21 19:10 Penicillins Allergy Unknown REACTION Verified 11/07/21 19:10 CHILD, FAMILY HX OF REACTION lisinopril AdvReac Mild cough Verified 11/07/21 19:10 oyster extract AdvReac Mild NAUSEA/VOMI Verified 09/13/21 22:33 TTING Home Medications Medication Instructions Recorded Confirmed Type atorvastatin 40 mg tablet 40 mg PO PM 01/27/20 11/07/21 History glipizide 10 mg tablet 10 mg PO BID 01/27/20 11/07/21 History losartan 25 mg tablet 25 mg PO QPM 01/27/20 11/07/21 History metformin 1,000 mg tablet 1,000 mg PO BID 01/27/20 11/07/21 History pantoprazole 40 mg tablet,delayed 40 mg PO QAM 01/27/20 11/07/21 History release aspirin 81 mg tablet,delayed 81 mg PO QPM 01/04/21 11/07/21 History release cholecalciferol (vitamin D3) 25 25 mcg PO DAILY 01/04/21 11/07/21 History mcg (1,000 unit) capsule coenzyme Q10 100 mg capsule 200 mg PO DAILY 01/04/21 11/07/21 History (CoQ-10) CPAP Machine #1 ea 02/01/21 11/07/21 Rx CPAP Supplies #1 ea 06/06/21 11/07/21 Rx Incentive Spirometer #1 ea 06/06/21 11/07/21 Rx levocetirizine 5 mg tablet 5 mg PO DAILY PRN allergy symptoms 06/06/21 11/07/21 Rx #30 tabs albuterol sulfate 90 mcg/actuation 2 puff inhalation Q6H PRN 06/13/21 11/07/21 Rx aerosol inhaler shortness of breath or wheezing #1 inhaler metoprolol succinate 25 mg 25 mg PO DAILY 09/13/21 11/07/21 History tablet,extended release 24 hr magnesium oxide 500 mg capsule 500 mg PO BID #30 caps 09/15/21 11/07/21 Rx calcium carbonate 600 mg calcium 600 mg PO DAILY 11/07/21 11/07/21 History (1,500 mg) tablet (Calcium) cholecalciferol (vitamin D3) 25 25 mcg PO DAILY 11/07/21 11/07/21 History mcg (1,000 unit) tablet (Vitamin D3) cyanocobalamin (vitamin B-12) 1,000 mcg PO DAILY 11/07/21 11/07/21 History 1,000 mcg tablet (Vitamin B-12) famotidine 20 mg tablet 20 mg PO BID 11/07/21 11/07/21 History ferrous sulfate 142 mg (45 mg 0 mg PO DAILY 11/07/21 11/07/21 History iron) tablet,extended release (Slow Fe) Past Med/Surg History Medical History Asthma HAS NOT USED RESCUE INHALER FOR A WHILE Diabetes mellitus, type 2 GERD (gastroesophageal reflux disease) Hx of meningioma of the brain Hyperlipidemia Hypertension Osteoarthritis Peripheral neuropathy Seasonal allergies Sleep apnea DOES NOT USE DEVICE "CURRENTLY" Thyroid cyst THYROID GROWTH (HX BIOPSY) Surgical History History of anesthesia reaction PLEASE SEE VOCAL CORD PARALYSIS NOTE History of cataract surgery RT/LEFT History of colonoscopy History of dilatation and curettage X 2 History of tooth extraction Hx of craniotomy DURING PROCEURE NICKED VOCAL CORD (2019) [facility] IN [place] 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 D/T CORRECTIVE SURGERY VOCAL CORD CORRECTION USING FAT FROM ABDOMEN TO BUILD UP THE VOCAL CORD ([facility]) Retinal tear of both eyes LASER RT/LEFT Family History Father Family hx of colon cancer Family history of diabetes mellitus Other Cancer Heart disease Tuberculosis Denies family history of Asthma Social History Smoking Status: Never smoker Second Hand Exposure: No; Hx Alcohol Use: No Hx Substance Use: No Preferred Language: Nepali Communication Ability: Effective Hand Welt Butter Required: No Beliefs That Will Affect Care: Worship Worship Beliefs: Sabianist marital status: Current Living Situation: Spouse Feels Safe at Home: Yes Assistive Devices: Cane and Walker Review of Systems All systems reviewed & are unremarkable except as noted in HPI & below. Physical Exam On physical examination of the right thumb, there are 2 small lacerations with a suture. She has a little bit of cellulitis mostly over the dorsal aspect of the webspace between the thumb and index metacarpal. She has a little bit of tenderness palpation in this area. She is able to make a full fist. She has no signs of tenosynovitis.. Constitutional WD/WN, vitals as above Eyes PERRL, conjunctivae normal, anicteric sclerae ENMT external ear and nose normal, oropharynx normal Neck trachea midline, no thyromegaly Respiratory normal respiratory effort, lungs clear to auscultation Cardiovascular RRR, no murmur, no edema Gastrointestinal (Abdomen) normal bowel sounds, soft, nontender, no hepatosplenomegaly Skin no rashes, warm and dry Psychiatric A+Ox3, euthymic affect Results & Data Results & Data Laboratory Results . Diagnostic Findings X-rays of the right hand show some soft tissue swelling but no evidence of fracture.. PG Care Time/CCT Total # of Minutes Spent Total Time Spent with Patient: Total time spent is greater than 50% in coordination of care (as documented) at patient's floor/unit and/or counseling patient: Coding Level of Care Code 18283 Inpt Consult Level 4 Diagnoses Dog bite of right hand including fingers with infection S61.451A; S61.259A; L08.9; W54.0XXA Encounter type: initial encounter (1) Dog bite of right hand including fingers with infection Encounter type: initial encounter Qualified Code(s): S61.451A - Open bite of right hand, initial encounter; S61.259A - Open bite of unspecified finger without damage to nail, initial encounter; L08.9 - Local infection of the skin and subcutaneous tissue, unspecified; W54.0XXA - Bitten by dog, initial encounter
[2021-11-08] MEDS: FAMOTIDINE 20 MG TAB PO SCH ×2 (08:15→20:27)
[2021-11-08] MEDS: ASPIRIN 81 MG ECTAB PO SCH (08:15)
[2021-11-08] MEDS: PANTOprazole 40 MG TAB PO SCH (08:15)
[2021-11-08] MEDS: MAGNESIUM OXIDE 400 MG TAB PO SCH ×2 (08:15→20:27)
[2021-11-08] MEDS: INSULIN ASPART PER UNIT SC SCH ×4 (10:34→20:47)
[2021-11-08 11:09] LABS: Hematocrit (blood only) 36.4 % (34.1-44.9); Hemoglobin 12.1 g/dl (12.0-16.0); Mean Corpuscular Hemoglobin 30.3 pg (25.0-34.0); Mean Corpuscular Hgb Conc 33.2 g/dL (32.0-36.0); Mean Platelet Volume 10.4 fL (9.4-12.3); Platelet Count 194 K/uL (130-400); RDW Coefficient of Variation 15.5 % (11.5-14.5); RDW Standard Deviation 51.5 fL (36.4-46.3); White Blood Count 7.48 K/ul (4.8-10.8)
[2021-11-08 11:37] LABS: BUN Creatinine Ratio 13.4 (10-20); Calcium 9.4 mg/dl (8.5-10.1); Creatinine Clr Calc Pharmacy 48.1 ml/min; Est GFR (African American) 63.5 ml/min; Est GFR (Non-African American) 54.8 ml/min
--- NOTE | 2021-11-08 19:40 | Hospitalist Progress Note ---
Date of Service November 08, 2021 Assessment & Plan (1) Dog bite of right hand including fingers with infection: Plan: -Was initially placed on PO clindamycin after wound was sutured on 11/04/21 at [employer] [employer] [facility] -Patient failed outpatient therapy, although Clindamycin likely was not broad enough -Xray of right hand shows soft tissues swelling but negative for OM -Was given ceftriaxone and flagyl in the ED --> placed on ZOsyn on admission Improving clinically, leukocytosis resolved, no fevers Seen by Ortho and no surgery indicated -keep elevated above heart to reduce swelling -blood cultures NGTD but were collected after received antibiotics in the ER -Tylenol for pain and can escalate as needed (2) Cellulitis of hand, right: Plan: -See above (3) Hypertension: Plan: -Currently hemodynamically stable -Will hold [employer] metoprolol and Losartan for now due to current infection to prevent hypotension, can re-start as needed (4) Hyperlipidemia: Plan: -continue home atorvastatin (5) GERD (gastroesophageal reflux disease): Plan: -continue home PPI (6) Diabetes mellitus, type 2: Plan: -Hold home Glipizide and Metformin -Hold basal insulin for now, can add if needed --Goal BSG Range: Low 110 mg/dL, High 140 mg/dL --Correction Factor: 25 mg/dL/unit --Carbohydrate ratio = 10g/unit (7) Restrictive lung disease: Plan: -PTcontinue home albuterol (8) MARTHA (obstructive sleep apnea): Plan: -continue HS Cpap (9) Morbid obesity: Plan: -Encourage weight loss BMI 42.7 Plan DVT proph- SCDs Dispo-continued stay but likely dc to home tomorrow Admission and Anticipated Discharge Date Admission Date: November 07, 2021 Subjective Pt feeling better, swelling in rigt hand has gone down. beader tender to the touch. Denies SOB, CP, nausea, abd pain. Is eating well. No diarrhea Review of Systems Review of Systems: All systems reviewed & are unremarkable except as noted in HPI & below Physical Exam Constitutional: WD/WN, vitals as above Eyes: + anicteric sclerae Neck: trachea midline, no thyromegaly Respiratory: normal respiratory effort, lungs clear to auscultation Cardiovascular: RRR, no murmur, no edema Chest (Breasts): Chest: normal inspection of chest Gastrointestinal (Abdomen): normal bowel sounds, soft, nontender, no hepatosplenomegaly Musculoskeletal: Extremities: + extremities abnormal to inspection (right hand edema prox thumb and over 1st MC and wrist), no cyanosis and no clubbing Skin: no rashes, warm and dry + wound (3 small wounds rt thumb,1 suture ea ch except one,no drainage) and + erythema (mild over right hand) Neurologic: moves all extremities and awake; no focal motor deficits Psychiatric: A+Ox3, euthymic affect Lymphatic: no lymphedema Results & Data Results & Data ([facility]) Vital Signs (Past 12 Hours) Vital Signs Temp Pulse Resp BP Pulse Ox O2 Del Method 11/08/21 15:30 36.5 C 82 20 134/82 97 Room Air 11/08/21 11:31 Room Air Laboratory Results 11/08/21 11/08/21 11/08/21 Range/Units 16:52 12:01 10:30 WBC (4.8-10.8) K/ul RBC (3.93-5.22) M/uL Hgb (12.0-16.0) g/dl Hct (34.1-44.9) % MCV (80.0-100.0) fL MCH (25.0-34.0) pg MCHC (32.0-36.0) g/dL RDW Std Deviation (36.4-46.3) fL RDW Coeff of Bo (11.5-14.5) % Plt Count (130-400) K/uL MPV (9.4-12.3) fL Sodium 140 (136-145) mmol/L Potassium 4.0 (3.5-5.1) mmol/L Chloride 106 (98-107) mmol/L Carbon Dioxide 27 (21-32) mmol/L Anion Gap 7 (3-11) BUN 13 (6-23) mg/dl Creatinine 0.97 (0.6-1.2) mg/dl Est Cr Clr Drug Dosing 48.1 ml/min Est GFR ( Amer) 63.5 ml/min Est GFR (Non-Af Amer) 54.8 ml/min BUN/Creatinine Ratio 13.4 (10-20) Glucose 144 H (70-99(Fasting)) mg/dl POC Glucose 113 H 152 H (70-99) mg/dl Calcium 9.4 (8.5-10.1) mg/dl 11/08/21 11/08/21 11/07/21 Range/Units 10:30 08:20 19:59 WBC 7.48 (4.8-10.8) K/ul RBC 4.00 (3.93-5.22) M/uL Hgb 12.1 (12.0-16.0) g/dl Hct 36.4 (34.1-44.9) % MCV 91.0 (80.0-100.0) fL MCH 30.3 (25.0-34.0) pg MCHC 33.2 (32.0-36.0) g/dL RDW Std Deviation 51.5 H (36.4-46.3) fL RDW Coeff of Bo 15.5 H (11.5-14.5) % Plt Count 194 (130-400) K/uL MPV 10.4 (9.4-12.3) fL Sodium (136-145) mmol/L Potassium (3.5-5.1) mmol/L Chloride (98-107) mmol/L Carbon Dioxide (21-32) mmol/L Anion Gap (3-11) BUN (6-23) mg/dl Creatinine (0.6-1.2) mg/dl Est Cr Clr Drug Dosing ml/min Est GFR ( Amer) ml/min Est GFR (Non-Af Amer) ml/min BUN/Creatinine Ratio (10-20) Glucose (70-99(Fasting)) mg/dl POC Glucose 126 H 123 H (70-99) mg/dl Calcium (8.5-10.1) mg/dl PG Care Time/CCT Total # of Minutes Spent Total Time Spent with Patient: Total time spent is greater than 50% in coordination of care (as documented) at patient's floor/unit and/or counseling patient: Coding Level of Care Code 84141 Subseq Hosp Care Lvl 2 Diagnoses Dog bite of right hand including fingers with infection S61.451A; S61.259A; L08.9; W54.0XXA Encounter type: initial encounter Cellulitis of hand, right L03.113 Hypertension I10 Hyperlipidemia E78.5 GERD (gastroesophageal reflux disease) K21.9 Diabetes mellitus, type 2 E11.9 Restrictive lung disease J98.4 MARTHA (obstructive sleep apnea) G47.33 Morbid obesity E66.01 (1) Dog bite of right hand including fingers with infection Encounter type: initial encounter Qualified Code(s): S61.451A - Open bite of right hand, initial encounter; S61.259A - Open bite of unspecified finger without damage to nail, initial encounter; L08.9 - Local infection of the skin and subcutaneous tissue, unspecified; W54.0XXA - Bitten by dog, initial encounter
[2021-11-08] MEDS: ATORVASTATIN 40 MG TAB PO SCH (20:27)
[2021-11-09] MEDS: PIPERACILLIN/TAZOBACTAM 3.375 GM in DEXTROSE 5% 100 ML IV SCH ×2 (00:31→06:06)
[2021-11-09 06:19] LABS: Hematocrit (blood only) 35.7 % (34.1-44.9); Hemoglobin 11.5 g/dl (12.0-16.0); Mean Corpuscular Hemoglobin 29.5 pg (25.0-34.0); Mean Corpuscular Hgb Conc 32.2 g/dL (32.0-36.0); Mean Corpuscular Volume 91.5 fL (80.0-100.0); Mean Platelet Volume 10.2 fL (9.4-12.3); Platelet Count 200 K/uL (130-400); RDW Coefficient of Variation 15.3 % (11.5-14.5); RDW Standard Deviation 50.7 fL (36.4-46.3); White Blood Count 5.05 K/ul (4.8-10.8)
[2021-11-09 06:54] LABS: BUN Creatinine Ratio 16.7 (10-20); Creatinine Clr Calc Pharmacy 43.2 ml/min; Est GFR (African American) 55.8 ml/min; Est GFR (Non-African American) 48.1 ml/min; Potassium 4.3 mmol/L (3.5-5.1)
[2021-11-09] MEDS: INSULIN ASPART PER UNIT SC SCH ×2 (09:11→13:01)
[2021-11-09] MEDS: MAGNESIUM OXIDE 400 MG TAB PO SCH (09:12)
[2021-11-09] MEDS: ASPIRIN 81 MG ECTAB PO SCH (09:12)
[2021-11-09] MEDS: PANTOprazole 40 MG TAB PO SCH (09:12)
[2021-11-09] MEDS: FAMOTIDINE 20 MG TAB PO SCH (09:13)
--- NOTE | 2021-11-09 13:58 | Discharge Summary ---
Date of Service November 09, 2021 Admission HPI Per Admitting Provider Svitlana is an 81 year old female with a PMH significant for DM II, Hypomagnesemia, restrictive lung disease, MARTHA on CPAP, morbid obesity, S/P removal of meningioma with subsequent vocal cord paralysis due to intubation, H TN, hyperlipidemia, and GERD who presented to the [facility] ED on 11/07/21 with worsening swelling and pain of her right hand. Per the patient, she is currently fostering a dog and was playing [employer] with it on 11/04/21. During this time her dog accidentally bit the proximal right thumb causing a laceration. She went to [facility] where she received sutures and was placed on Clindamycin due to previous history of penicillin allergy in her family. She was taking the Clindamycin as prescribed however her right hand has continued to swell. She has reduced ROM in her right thumb due to swelling and pain. She denies any recent fevers, chills, or drainage from her laceration site. In the ED she was noted to have a leukocytosis of 12.5 with a left shift of 9.79. Xray of the right hand was negative for acute trauma or OM but did reveal soft tissue swelling. She was given one dose of ceftriaxone and flagyl and orthopedics was contacted. They recommended admission for IV antibiotics and possible I&D if needed. Orthopedics confirmed that they would be comfortable taking her to the OR for I&D if needed this admission. Principal Diagnosis Dog bite cellulitis of the hand Discharge Exam Constitutional WD/WN, vitals as above Eyes + anicteric sclerae Neck trachea midline, no thyromegaly Respiratory normal respiratory effort, lungs clear to auscultation Cardiovascular RRR, no murmur, no edema Chest (Breasts) Chest: normal inspection of chest Gastrointestinal (Abdomen) normal bowel sounds, soft, nontender, no hepatosplenomegaly Musculoskeletal Extremities: + extremities abnormal to inspection (right hand minimal edema prox thumb and over 1st MC and wrist), no cyanosis and no clubbing Skin no rashes, warm and dry + wound (3 small wounds rt thumb,1 suture each except one,no drainage) and + erythema (mild over right hand) erythema of right hand resolved Neurologic moves all extremities and awake; no focal motor deficits Psychiatric A+Ox3, euthymic affect Lymphatic no lymphedema Discharge Data Allergies Allergy/AdvReac Type Severity Reaction Status Date / Time codeine Allergy Severe ANAPHALAXIS Verified 11/07/21 19:10 lisinopril AdvReac Mild cough Verified 11/07/21 19:10 oyster extract AdvReac Mild NAUSEA/VOMI Verified 09/13/21 22:33 TTING Consultations 11/07/21 18:36 Consult Orthopedic Surgery Routine 11/08/21 02:33 ED Decision to Admit Stat Hospital Course (1) Dog bite of right hand including fingers with infection: -Was initially placed on PO clindamycin after wound was sutured on 11/04/21 at [facility] -Patient failed outpatient therapy, although Clindamycin likely was not broad enough -Xray of right hand shows soft tissues swelling but negative for OM -Was given ceftriaxone and flagyl in the ED --> placed on ZOsyn on admission and tolerating without problem despite PCN allergy listed (she reports she personally never had a reaction, only her children) Improving clinically, leukocytosis resolved, no fevers, edema and erythema almost completely resolved Seen by Ortho and no surgery indicated -keep elevated above heart to reduce swelling -blood cultures NGTD but were collected after received antibiotics in the ER Stable for dc to home nad finish out a course of AUgmentin for 7 more days sutures removed prior to discharge (2) Cellulitis of hand, right: -See above (3) Hypertension: -Currently hemodynamically stable -restart home metoprolol and Losartan (4) Hyperlipidemia: -continue home atorvastatin (5) GERD (gastroesophageal reflux disease): -continue home PPI (6) Diabetes mellitus, type 2: -restart home Glipizide and Metforminon dishcarge (7) Restrictive lung disease: -PTcontinue home albuterol (8) MARTHA (obstructive sleep apnea): -continue HS Cpap (9) Morbid obesity: -Encourage weight loss BMI 42.7 Plan DVT proph- SCDs Dispo-dc to home Total Time Total Time Spent Total Time Spent (In Minutes): 35 min Discharge Plan Discharge Items Patient Disposition: Home - Self-Care Reason For Visit: NEED FOR IV ANTIBIOTICS Discharge Diagnosis: Right hand dog bite cellulitis Condition on Discharge: Good Activity: Resume your previous activity Bathing: No limitations Exercise Comment: Keep right hand elevated as much as possible until swelling resolved Non-emergency contact: Primary Care Provider Call non-emergency contact if: you have any medication questions, your symptoms worsen, your pain is not controlled, your pain is worsening, you have a fever, your wound has increased redness, your wound has increased drainage and your wound pain has increased Follow-up/Referrals: Vince Skinner MD [Primary Care Provider] - (Follow up within 1-2 weeks) Diet: Carb Consistent or DM2 Addtl Attending Provider Instructions: Please finish out the course of Augmentin for 7 more days for your hand infection. Keep the hand elevated and follow up with your doctor within 1-2 weeks. Pending Studies at Discharge: Yes Studies:: Final blood culture results-no growth to date Stand-Alone Forms: My [facility] Medications and DC Order Prescriptions: New amoxicillin-pot clavulanate 875-125 mg tablet 1 tab PO BID Qty: 14 0RF Continued (DME) CPAP Machine Misc See Rx Instructions .MEDSUPPLY Qty: 1 0RF Rx Instructions: CPAP at 8 cm water with C-Flex of 2. G47.33 albuterol sulfate 90 mcg/actuation HFA aerosol inhaler 2 puff inhalation Q6H PRN (Reason: shortness of breath or wheezing) Qty: 1 5RF Rx Instructions: Ventolin Brand for insurance to cover levocetirizine 5 mg tablet 5 mg PO DAILY PRN (Reason: allergy symptoms) Qty: 30 3RF Rx Instructions: Take daily for 10 days then PRN (DME) Incentive Spirometer Misc See Rx Instructions .MEDSUPPLY Qty: 1 0RF Rx Instructions: As directed (DME) CPAP Supplies Misc See Rx Instructions .MEDSUPPLY Qty: 1 0RF Rx Instructions: CPAP supplies. G47.33 coenzyme Q10 [CoQ-10] 100 mg capsule 200 mg PO DAILY cholecalciferol (vitamin D3) 25 mcg (1,000 unit) capsule 25 mcg PO DAILY aspirin 81 mg tablet,delayed release (DR/EC) 81 mg PO QPM atorvastatin 40 mg Tablet 40 mg PO PM glipizide 10 mg Tablet 10 mg PO BID pantoprazole 40 mg Tablet,Delayed Release (Dr/Ec) 40 mg PO QAM metformin 1,000 mg Tablet 1,000 mg PO BID losartan 25 mg Tablet 25 mg PO QPM metoprolol succinate 25 mg tablet extended release 24 hr 25 mg PO DAILY magnesium oxide 500 mg capsule 500 mg PO BID Qty: 30 0RF cyanocobalamin (vitamin B-12) [Vitamin B-12] 1,000 mcg Tablet 1,000 mcg PO DAILY calcium carbonate [Calcium 600] 600 mg calcium (1,500 mg) Tablet 600 mg PO DAILY famotidine 20 mg tablet 20 mg PO BID cholecalciferol (vitamin D3) [Vitamin D3] 25 mcg (1,000 unit) Tablet 25 mcg PO DAILY Slow Fe 142 mg (45 mg iron) Tablet Extended Release 0 mg PO DAILY Discharge Orders: Discharge Order (Routine); Ordered 11/09/21 Ordered By: Jackie Esparza Admission Data Admit Date/Time: 11/07/21 17:11 Attending Provider: Jackie Esparza Admit Provider: Luis Hernandez Primary Care Provider: Vince Skinner Other Providers: [place] ; Luis Hernandez ; Jackie Esparza Coding Level of Care Code D/C DAY MANAGEMENT >30 MINS Diagnoses Dog bite of right hand including fingers with infection S61.451A; S61.259A; L08.9; W54.0XXA Encounter type: initial encounter Cellulitis of hand, right L03.113 Hypertension I10 Hyperlipidemia E78.5 GERD (gastroesophageal reflux disease) K21.9 Diabetes mellitus, type 2 E11.9 Restrictive lung disease J98.4 MARTHA (obstructive sleep apnea) G47.33 Morbid obesity E66.01
== END 2021-11-09 15:46 | disposition home or self-care (01) | DRG 603 ==
LOC: ED 14:47 → 3N 17:11 → SUATTDRO 17:11 → 3N 20:20

== ENCOUNTER 2021-11-12 13:17 | Observation (INO) ==
[2021-11-12] MEDS ORDERED: ACETAMINOPHEN 500 MG TAB PO STA (13:47)
--- NOTE | 2021-11-12 14:11 | XRay Report ---
XR hand RT min 3V routine, XR hand LT min 3V routine CLINICAL HISTORY: dog bites to both hands. COMPARISON STUDY: No previous studies for comparison. TECHNIQUE: Both hands each 3 views FINDINGS: Bones: There is no evidence for an acute fracture or dislocation. There is no lytic or blastic lesion . Joints: There is marked narrowing of the second DIP joints bilaterally with evidence for erosive oste oarthritis bilaterally. Mild narrowing is present involving the remaining IP joints. There is marked joint space narrowing and degenerative changes at the first CMC joints bilaterally. The bones are in anatomic alignment. Soft tissues: There is no focal soft tissue abnormality. There is no air seen within the soft tissues . There is no radiopaque foreign body. IMPRESSION: 1. No acute osseous pathology. 2. Erosive osteoarthritis. ACT 112: Negative or not required by law. Electronically signed by: David Victor M.D. 11/12/2021 2:09 PM
--- NOTE | 2021-11-12 16:00 | Emergency Department Note ---
Impression & Plan Dog bite of multiple sites of right hand and fingers, Dog bite of multiple sites of left hand and fingers ED Provider Note CHIEF COMPLAINT: Dog bites, bilateral hands HISTORY OF PRESENT ILLNESS: Svitlana Kerr is an 81 year old female with history of DM2, HTN, DLD, GERD, OA, among others listed below who presents to the Emergency Department for evaluation of dog bites to her bilateral hands which she sustained from her puppy just prior to arrival. Of note, the patient was recently admitted to the hospital on 11/07/21 for IV antibiotics as she had sustained bite wounds to her right hand from the same puppy on 11/04/21 which unfortunately became infected. During her hospital stay, she was initially started on IV Ceftriaxone and Flagyl, ultimately switched to Zosyn and then discharged on Augmentin PO which she has been taking since that time. Today, the patient states that her puppy got its foot stuck in its collar and when she reached down to try to release it, it bit her several times on both of her hands. She did attempt to wash her wounds out with water prior to arrival. Currently, she rates her discomfort as a 9/10 which worsens to palpation of the areas and with movement of her hands. She has not attempted to take any medications for her pain. The patient's tetanus status is up to date. She also states that her dog's vaccinations are up to date as well. REVIEW OF SYSTEMS: 10 systems were reviewed and were negative unless otherwise stated in HPI as above PHYSICAL EXAM: VITALS: Vitals are noted on the nurse's note and reviewed by myself. Vital signs stable. General: Resting in bed, tearful, complaining of pain to her hands Head/Eyes: Normocephalic, atraumatic, PERRL, EOMI MSK/Integumentary: LUE: Scattered bite wounds to the dorsal aspect of the hand, thumb, thenar eminence and palm with surrounding edema. No active bleeding or appreciable foreign bodies. Continues with full range of motion of the hand and all digits, though with pain. RUE: Scattered bite wounds to the dorsal aspect of the hand and thumb and one along the ulnar aspect in addition to old appearing, scabbed over wounds to the thumb. No active bleeding or appreciable foreign bodies. Continues with full range of motion of the hand and all digits, though with pain. Radial pulses intact and capillary refill <2 seconds bilaterally. No additional wounds, moving all other extremities without apparent pain or difficulty Neuro: Awake, alert and oriented x 3, interacting and answering questions appropriately Differential diagnosis includes dog bite lacerations, contusions, soft tissue injuries, neurovascular, fractures, cellulitis, among others were considered. EMERGENCY DEPARTMENT COURSE: Physical exam and history were performed. Nursing triage notes, EMR, and medication list were personally reviewed. Patient appears to have sustained multiple bite wounds to her bilateral hands f rom her puppy just prior to arrival. Additional history as described above. See physical exam as noted above. The patient was offered pain medication and was given Tylenol. X-rays of the bilateral hands were obtained and reviewed by radiologist myself as below. No acute fractures. The patient's wounds were washed out with a mixture of one half peroxide and saline. I do not feel that any of the wounds will benefit from repair with sutures given that they are from dog bites and there is great risk of developing infection, especially with her recent history of this. After thoroughly cleaning them, the wounds were dressed with bacitracin, Telfa, Kerlix and Coban. I did speak with the patient about continued wound care at home and plans for follow up. I also planned to extend her course of Augmentin for continued coverage given her new wounds today. The patient voiced concerns about being able to care for herself at home as she now has 2 injured hands. She states that she lives with her but he is unable to help her as she is his main caregiver. I did speak with case management about trying to set up home health, however this service is not available today. The patient did request to be admitted to the hospital for observation until these arrangements could be made. I did call and speak with Dr. Roman of the [facility]. He agreed to evaluate the patient. The patient verbalized her understanding and agreement with this treatment plan. The chart was completed utilizing [employer] Speech Voice Recognition Software. Grammatical errors, random word insertions, pronoun errors, and incomplete sentences are an occasional consequence of this system due to software limitations, ambient noise, and hardware issues. Any formal questions or concerns about the content, text, or information contained within the body of this dictation should be directly addressed to the provider for clarification. Past Med/Surg History Medical History Asthma HAS NOT USED RESCUE INHALER FOR A WHILE Diabetes mellitus, type 2 GERD (gastroesophageal reflux disease) Hx of meningioma of the brain Hyperlipidemia Hypertension Osteoarthritis Peripheral neuropathy Seasonal allergies Sleep apnea DOES NOT USE DEVICE "CURRENTLY" Thyroid cyst THYROID GROWTH (HX BIOPSY) Surgical History History of anesthesia reaction PLEASE SEE VOCAL CORD PARALYSIS NOTE History of cataract surgery RT/LEFT History of colonoscopy History of dilatation and curettage X 2 History of tooth extraction Hx of craniotomy DURING PROCEURE NICKED VOCAL CORD (2019) [facility] [place] 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 D/T CORRECTIVE SURGERY VOCAL CORD CORRECTION USING FAT FROM ABDOMEN TO BUILD UP THE VOCAL CORD ([facility]) Retinal tear of both eyes LASER RT/LEFT Family History Father Family hx of colon cancer Family history of diabetes mellitus Other Cancer Heart disease Tuberculosis Denies family history of Asthma Social History Smoking Status: Never smoker Second Hand Exposure: No; Hx Alcohol Use: No Hx Substance Use: No Preferred Language: Nepali Communication Ability: Effective Incident Response Analyst Required: No Beliefs That Will Affect Care: Jewish Jewish Beliefs: Judaism marital status: Current Living Situation: Spouse Feels Safe at Home: Yes Assistive Devices: Cane and Walker Allergies Allergies Allergy/AdvReac Type Severity Reaction Status Date / Time codeine Allergy Severe ANAPHALAXIS Verified 11/07/21 19:10 lisinopril AdvReac Mild cough Verified 11/07/21 19:10 oyster extract AdvReac Mild NAUSEA/VOMI Verified 09/13/21 22:33 TTING Home Meds Home Medications Medication Instructions Recorded Confirmed atorvastatin 40 mg tablet 40 mg PO PM 01/27/20 11/07/21 glipizide 10 mg tablet 10 mg PO BID 01/27/20 11/07/21 losartan 25 mg tablet 25 mg PO QPM 01/27/20 11/07/21 metformin 1,000 mg tablet 1,000 mg PO BID 01/27/20 11/07/21 pantoprazole 40 mg tablet,delayed 40 mg PO QAM 01/27/20 11/07/21 release aspirin 81 mg tablet,delayed 81 mg PO QPM 01/04/21 11/07/21 release cholecalciferol (vitamin D3) 25 25 mcg PO DAILY 01/04/21 11/07/21 mcg (1,000 unit) capsule coenzyme Q10 100 mg capsule 200 mg PO DAILY 01/04/21 11/07/21 (CoQ-10) metoprolol succinate 25 mg 25 mg PO DAILY 09/13/21 11/07/21 tablet,extended release 24 hr calcium carbonate 600 mg calcium 600 mg PO DAILY 11/07/21 11/07/21 (1,500 mg) tablet (Calcium) cholecalciferol (vitamin D3) 25 25 mcg PO DAILY 11/07/21 11/07/21 mcg (1,000 unit) tablet (Vitamin D3) cyanocobalamin (vitamin B-12) 1,000 mcg PO DAILY 11/07/21 11/07/21 1,000 mcg tablet (Vitamin B-12) famotidine 20 mg tablet 20 mg PO BID 11/07/21 11/07/21 ferrous sulfate 142 mg (45 mg 0 mg PO DAILY 11/07/21 11/07/21 iron) tablet,extended release (Slow Fe) Previous Rx's Medication Instructions Recorded CPAP Machine #1 ea 02/01/21 CPAP Supplies #1 ea 06/06/21 Incentive Spirometer #1 ea 06/06/21 levocetirizine 5 mg tablet 5 mg PO DAILY PRN allergy symptoms 06/06/21 #30 tabs albuterol sulfate 90 mcg/actuation 2 puff inhalation Q6H PRN 06/13/21 aerosol inhaler shortness of breath or wheezing #1 inhaler magnesium oxide 500 mg capsule 500 mg PO BID #30 caps 09/15/21 amoxicillin 875 mg-potassium 1 tab PO BID #14 tabs 11/09/21 clavulanate 125 mg tablet Results & Data (ED) Vital Signs Vital Signs - 24 hr 11/12/21 13:22 11/12/21 17:34 Temperature 36.7 C Temperature Source Temporal Artery Scan Pulse Rate 107 H Pulse Rate [Left] 90 Pulse Rhythm [Left] Regular Pulse Strength [Left] Normal Respiratory Rate 18 18 Respiratory Effort / Characteristics Non-Labored Spontaneous Non-Labored Respiratory Depth Normal Normal Respiratory Pattern Regular Regular Blood Pressure 169/96 H Blood Pressure [Right Arm] 134/80 Blood Pressure Mean 120 Blood Pressure Mean [Right Arm] 98 Blood Pressure Position Sitting Pulse Oximetry 97 98 Oxygen Delivery Method Room Air Room Air Sepsis Recent Fever Within 48 Hours No Sepsis New/Unexplained Change in Mental Status No Sepsis Action Taken by Nursing No Action Required Laboratory Data Lab Results 11/12/21 Range/Units 15:37 SARS-CoV-2, RNA, NAAT NEGATIVE (NEGATIVE) Administered Medications Discontinued Medications Acetaminophen (Acetaminophen 500 Mg Tab) 1,000 mg PO NOW STA Stop: 11/12/21 13:48 Last Admin: 11/12/21 14:07 Dose: 1,000 mg Documented By: [facility] Imaging Data Radiologist's Impression: Hand X-Ray 11/12/21 13:47 XR hand RT min 3V routine, XR hand LT min 3V routine CLINICAL HISTORY: dog bites to both hands. COMPARISON STUDY: No previous studies for comparison. TECHNIQUE: Both hands each 3 views FINDINGS: Bones: There is no evidence for an acute fracture or dislocation. There is no lytic or blastic lesion. Joints: There is marked narrowing of the second DIP joints bilaterally with evidence for erosive osteoarthritis bilaterally. Mild narrowing is present involving the remaining IP joints. There is marked joint space narrowing and degenerative changes at the first CMC joints bilaterally. The bones are in anatomic alignment. Soft tissues: There is no focal soft tissue abnormality. There is no air seen within the soft tissues. There is no radiopaque foreign body. IMPRESSION: 1. No acute osseous pathology. 2. Erosive osteoarthritis. ACT 112: Negative or not required by law. Electronically signed by: David Victor M.D. 11/12/2021 2:09 PM Hand X-Ray 11/12/21 13:47 XR hand RT min 3V routine, XR hand LT min 3V routine CLINICAL HISTORY: dog bites to both hands. COMPARISON STUDY: No previous studies for comparison. TECHNIQUE: Both hands each 3 views FINDINGS: Bones: There is no evidence for an acute fracture or dislocation. There is no lytic or blastic lesion. Joints: There is marked narrowing of the second DIP joints bilaterally with evidence for erosive osteoarthritis bilaterally. Mild narrowing is present involving the remaining IP joints. There is marked joint space narrowing and degenerative changes at the first CMC joints bilaterally. The bones are in anatomic alignment. Soft tissues: There is no focal soft tissue abnormality. There is no air seen within the soft tissues. There is no radiopaque foreign body. IMPRESSION: 1. No acute osseous pathology. 2. Erosive osteoarthritis. ACT 112: Negative or not required by law. Electronically signed by: David Victor M.D. 11/12/2021 2:09 PM Discharge Plan Visit Data Chief Complaint: Animal Bite Stated Complaint: NEW DOG BITE, INFECTION ED Provider: Esau Osorio ED Midlevel Provider: Thalia Edmond Discharge Problem: Dog bite of multiple sites of right hand and fingers, Dog bite of multiple sites of left hand and fingers Patient Disposition: Admitted As Inpatient Discharge Instructions Interventions: ED Discharge Assessment Last Done: 11/12/21 18:34 Forms Stand Alone Forms: [employer] Prescriptions Prescriptions: No Action (DME) CPAP Machine Misc See Rx Instructions .MEDSUPPLY Qty: 1 0RF Rx Instructions: CPAP at 8 cm water with C-Flex of 2. G47.33 albuterol sulfate 90 mcg/actuation HFA aerosol inhaler 2 puff inhalation Q6H PRN (Reason: shortness of breath or wheezing) Qty: 1 5RF Rx Instructions: Ventolin Brand for insurance to cover levocetirizine 5 mg tablet 5 mg PO DAILY PRN (Reason: allergy symptoms) Qty: 30 3RF Rx Instructions: Take daily for 10 days then PRN (DME) Incentive Spirometer Misc See Rx Instructions .MEDSUPPLY Qty: 1 0RF Rx Instructions: As directed (DME) CPAP Supplies Misc See Rx Instructions .MEDSUPPLY Qty: 1 0RF Rx Instructions: CPAP supplies. G47.33 coenzyme Q10 [CoQ-10] 100 mg capsule 200 mg PO DAILY cholecalciferol (vitamin D3) 25 mcg (1,000 unit) capsule 25 mcg PO DAILY aspirin 81 mg tablet,delayed release (DR/EC) 81 mg PO QPM atorvastatin 40 mg Tablet 40 mg PO PM glipizide 10 mg Tablet 10 mg PO BID pantoprazole 40 mg Tablet,Delayed Release (Dr/Ec) 40 mg PO QAM metformin 1,000 mg Tablet 1,000 mg PO BID losartan 25 mg Tablet 25 mg PO QPM metoprolol succinate 25 mg tablet extended release 24 hr 25 mg PO DAILY magnesium oxide 500 mg capsule 500 mg PO BID Qty: 30 0RF cyanocobalamin (vitamin B-12) [Vitamin B-12] 1,000 mcg Tablet 1,000 mcg PO DAILY calcium carbonate [Calcium 600] 600 mg calcium (1,500 mg) Tablet 600 mg PO DAILY famotidine 20 mg tablet 20 mg PO BID cholecalciferol (vitamin D3) [Vitamin D3] 25 mcg (1,000 unit) Tablet 25 mcg PO DAILY Slow Fe 142 mg (45 mg iron) Tablet Extended Release 0 mg PO DAILY amoxicillin-pot clavulanate 875-125 mg tablet 1 tab PO BID Qty: 14 0RF Referrals Referrals: Vince Skinner MD [Primary Care Provider] -
--- NOTE | 2021-11-12 16:45 | History & Physical Report ---
Date of Service November 12, 2021 Assessment & Plan (1) Dog bite of hand without complication: Plan: Dog bites sustained of both right and left hands w/o cellulitis - Place in observation overnight - Stat labs ordered including cbc w/ diff and bmp (none drawn in ED) - Continue Augmentin - Wound care consult, appreciate assistance - Will arrange for home health upon d/c for wound care checks - Stressed importance that pt needs to have the dog removed from the home magdalena - APAP as needed for pain (2) Hypertension: Plan: - Continue Losartan and Metoprolol (3) Hyperlipidemia: Plan: - Continue Atorvastatin (4) GERD (gastroesophageal reflux disease): Plan: - Continue Pepcid and Protonix (5) Diabetes mellitus, type 2: Plan: - Carb consistent diet - Continue Glipizide - Hold Metformin - BSG AC and HS, goal <180, if over can add SSI Plan As above. Will ask CM to see and arrange for home health follow up given that she has injured both hands make it difficult for her to drive. They can send national service officer to check wounds. Keep hands elevated. No need for labs in AM. Explained to pt that she will likely be discharged home tomorrow. Plan d/w Dr. Esparza who will see pt. Additional orders may be placed as warranted. History of Present Illness Chief Complaint: Dog bite Primary Care Provider: Vince Skinner MD Svitlana Kerr is an 81 yo recently hospitalized at [facility] 11/07-11/09 after sustaining a dog bite to her right hand when she was playing with the dog. She was seen at [facility] and dog bite was sutured on 11/04 and placed on oral Clindamycin. However, upon returning home, increased redness and swelling which lead to her coming to the ER on 11/07. Pt was treated with Zosyn and then converted to Unasyn and transitioned to course of Augmentin upon d/c on 11/09. Pt has been recovering fine at home until today when the dog appeared to get his paw stuck in his collar, pt tried to assist him and believes the dog got scared and bit both of her hands. She put her hands up to protect her face and believes that is how he bit both hands. Regardless, she presented back to the hospital where her wounds were irrigated and redressed. She was given a dose of IV APAP 1g. Pt reports since both of her hands are now dressed she is unable to care for herself or her and subsequently was referred for admission. At this point, no labs have been drawn. X-rays obtained of both hands, no osseous pathology or soft tissue abnormality appreciated. No air seen within soft tissues. Erosive osteoarthritis noted. She is afebrile. Allergies Allergy/AdvReac Type Severity Reaction Status Date / Time codeine Allergy Severe ANAPHALAXIS Verified 11/07/21 19:10 lisinopril AdvReac Mild cough Verified 11/07/21 19:10 oyster extract AdvReac Mild NAUSEA/VOMI Verified 09/13/21 22:33 TTING Home Medications Medication Instructions Recorded Confirmed Type atorvastatin 40 mg tablet 40 mg PO PM 01/27/20 11/07/21 History glipizide 10 mg tablet 10 mg PO BID 01/27/20 11/07/21 History losartan 25 mg tablet 25 mg PO QPM 01/27/20 11/07/21 History metformin 1,000 mg tablet 1,000 mg PO BID 01/27/20 11/07/21 History pantoprazole 40 mg tablet,delayed 40 mg PO QAM 01/27/20 11/07/21 History release aspirin 81 mg tablet,delayed 81 mg PO QPM 01/04/21 11/07/21 History release cholecalciferol (vitamin D3) 25 25 mcg PO DAILY 01/04/21 11/07/21 History mcg (1,000 unit) capsule coenzyme Q10 100 mg capsule 200 mg PO DAILY 01/04/21 11/07/21 History (CoQ-10) CPAP Machine #1 ea 02/01/21 11/07/21 Rx CPAP Supplies #1 ea 06/06/21 11/07/21 Rx Incentive Spirometer #1 ea 06/06/21 11/07/21 Rx levocetirizine 5 mg tablet 5 mg PO DAILY PRN allergy symptoms 06/06/21 11/07/21 Rx #30 tabs albuterol sulfate 90 mcg/actuation 2 puff inhalation Q6H PRN 06/13/21 11/07/21 Rx aerosol inhaler shortness of breath or wheezing #1 inhaler metoprolol succinate 25 mg 25 mg PO DAILY 09/13/21 11/07/21 History tablet,extended release 24 hr magnesium oxide 500 mg capsule 500 mg PO BID #30 caps 09/15/21 11/07/21 Rx calcium carbonate 600 mg calcium 600 mg PO DAILY 11/07/21 11/07/21 History (1,500 mg) tablet (Calcium) cholecalciferol (vitamin D3) 25 25 mcg PO DAILY 11/07/21 11/07/21 History mcg (1,000 unit) tablet (Vitamin D3) cyanocobalamin (vitamin B-12) 1,000 mcg PO DAILY 11/07/21 11/07/21 History 1,000 mcg tablet (Vitamin B-12) famotidine 20 mg tablet 20 mg PO BID 11/07/21 11/07/21 History ferrous sulfate 142 mg (45 mg 0 mg PO DAILY 11/07/21 11/07/21 History iron) tablet,extended release (Slow Fe) amoxicillin 875 mg-potassium 1 tab PO BID #14 tabs 11/09/21 Rx clavulanate 125 mg tablet Past Med/Surg History Medical History Asthma HAS NOT USED RESCUE INHALER FOR A WHILE Diabetes mellitus, type 2 GERD (gastroesophageal reflux disease) Hx of meningioma of the brain Hyperlipidemia Hypertension Osteoarthritis Peripheral neuropathy Seasonal allergies Sleep apnea DOES NOT USE DEVICE "CURRENTLY" Thyroid cyst THYROID GROWTH (HX BIOPSY) Surgical History History of anesthesia reaction PLEASE SEE VOCAL CORD PARALYSIS NOTE History of cataract surgery RT/LEFT History of colonoscopy History of dilatation and curettage X 2 History of tooth extraction Hx of craniotomy DURING PROCEURE NICKED VOCAL CORD (2019) [facility] IN [place] 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 D/T CORRECTIVE SURGERY VOCAL CORD CORRECTION USING FAT FROM ABDOMEN TO BUILD UP THE VOCAL CORD ([facility]) Retinal tear of both eyes LASER RT/LEFT Family History Father Family hx of colon cancer Family history of diabetes mellitus Other Cancer Heart disease Tuberculosis Denies family history of Asthma Social History Smoking Status: Never smoker Second Hand Exposure: No; Hx Alcohol Use: No Hx Substance Use: No Preferred Language: Mohawk Communication Ability: Effective Application Development Liaison Required: No Beliefs That Will Affect Care: Confucianism Confucianism Beliefs: Restoration marital status: Current Living Situation: Spouse Feels Safe at Home: Yes Assistive Devices: Cane and Walker Review of Systems Review of Systems: All systems reviewed and are unremarkable except as noted in HPI and below. Denies fever, chills, fatigue, headache, nasal congestion, sore throat, cough, chest pain, shortness of breath, palpitations, orthopnea, PND, abdominal pain, n/v/d, constipation, dysuria, hematuria, frequency, back pain, joint pain or swelling, easy bruising or bleeding. Physical Exam Physical Exam: GENERAL: 81 yo obese elderly WF. Pleasant, cooperative. NAD. EYES: EOMI. PERRLA. Anicteric. HENT: Moist mucous membranes. No scleral icterus. No cervical lymphadenopathy. LUNGS: Clear to auscultation bilaterally. No W/R/R. CARDIOVASCULAR: Regular rate and rhythm. No M/G/R. No JVD. ABDOMEN: Soft, obese, non-tender and non-distended. No palpable masses. Bowel sounds normoactive x 4 quad. EXTREMITIES: No edema. Non-tender. Peripheral pulses +2/4. NEUROLOGIC: A&O x3. No focal neurological deficits. CN II-XII grossly intact. PSYCHIATRIC: Cooperative. Appropriate mood and affect. SKIN: Warm, dry, intact. Bites to both hands but wounds are dressed so not directly examined by myself. Results & Data Results & Data ([facility]) Vital Signs (Past 12 Hours) Vital Signs Temp Pulse Resp BP Pulse Ox O2 Del Method 11/12/21 13:22 36.7 C 107 H 18 169/96 H 97 Room Air Laboratory Results Labs ordered/pending Diagnostic Findings Hand X-Ray 11/12/21 13:47 XR hand RT min 3V routine, XR hand LT min 3V routine CLINICAL HISTORY: dog bites to both hands. COMPARISON STUDY: No previous studies for comparison. TECHNIQUE: Both hands each 3 views FINDINGS: Bones: There is no evidence for an acute fracture or dislocation. There is no lytic or blastic lesion. Joints: There is marked narrowing of the second DIP joints bilaterally with evidence for erosive osteoarthritis bilaterally. Mild narrowing is present involving the remaining IP joints. There is marked joint space narrowing and degenerative changes at the first CMC joints bilaterally. The bones are in anatomic alignment. Soft tissues: There is no focal soft tissue abnormality. There is no air seen within the soft tissues. There is no radiopaque foreign body. IMPRESSION: 1. No acute osseous pathology. 2. Erosive osteoarthritis. ACT 112: Negative or not required by law. Electronically signed by: David Victor M.D. 11/12/2021 2:09 PM Hand X-Ray 11/12/21 13:47 XR hand RT min 3V routine, XR hand LT min 3V routine CLINICAL HISTORY: dog bites to both hands. COMPARISON STUDY: No previous studies for comparison. TECHNIQUE: Both hands each 3 views FINDINGS: Bones: There is no evidence for an acute fracture or dislocation. There is no lytic or blastic lesion. Joints: There is marked narrowing of the second DIP joints bilaterally with evidence for erosive osteoarthritis bilaterally. Mild narrowing is present involving the remaining IP joints. There is marked joint space narrowing and degenerative changes at the first CMC joints bilaterally. The bones are in anatomic alignment. Soft tissues: There is no focal soft tissue abnormality. There is no air seen within the soft tissues. There is no radiopaque foreign body. IMPRESSION: 1. No acute osseous pathology. 2. Erosive osteoarthritis. ACT 112: Negative or not required by law. Electronically signed by: David Victor M.D. 11/12/2021 2:09 PM Supervising Physician Co-Signing Physician Notes PA Supervision Note: I personally saw and examined the patient. I verified all sexton points and agree with IGNACIO Herbert with the following exceptions and/or additions: S-Pt having a lot of pain in the hands. Feels a little lightheaded with standing. Returns to the ER with pain and bleeding after multiple dog bites to bilat hands. No fevers/chills History and ROS otherwise as above O- Vitals reviewed Gen: [AAOx3, NAD] HEENT: [anicteric sclerae, EOMI] CV: [RRR no mgr nl S1S2] Pulm: [CTAB no wcr] Abd: [+BS soft NT ND no masses or hernias] Ext: [no edema,hands in bilat dressings with kerlix and coban c/d/i, not removed] Skin: [no rashes, warm/dry] Neuro: [full strength throughout] A/P-81 yo female here with bilat hand dog bites, requesting to stay ovenright for pain control and inability to assist self at home reassess in AM, continue AUgmentin for previous dog bite cellulitis right hand no suturing today due to nature of dog bites on hands I believe she had a Tetanus vax at urgent care but will double check PG Care Time/CCT Total # of Minutes Spent Total Time Spent with Patient: Total time spent is greater than 50% in coordination of care (as documented) at patient's floor/unit and/or counseling patient: Coding Level of Care Code INT OBSERVATION CARE 50M LVL 2 Diagnoses Dog bite of hand without complication S61.459A; W54.0XXA Hypertension I10 Hyperlipidemia E78.5 GERD (gastroesophageal reflux disease) K21.9 Diabetes mellitus, type 2 E11.9
[2021-11-12] MEDS ORDERED: MAGNESIUM HYDROXIDE SUSP 30 ML UDC PO PRN (19:42)
[2021-11-12] MEDS ORDERED: ALUMINUM/MAGNESIUM SUSP 30 ML UDC PO PRN (19:42)
[2021-11-12] MEDS: ACETAMINOPHEN 500 MG TAB PO PRN (20:12)
[2021-11-12 20:45] LABS: Anion Gap 10 (3-11); BUN Creatinine Ratio 17.6 (10-20); Blood Urea Nitrogen 18 mg/dl (6-23); Calcium 9.4 mg/dl (8.5-10.1); Carbon Dioxide 22 mmol/L (21-32); Chloride 106 mmol/L (98-107); Est GFR (African American) 59.7 ml/min; Est GFR (Non-African American) 51.5 ml/min; Glucose 269 mg/dl (70-99(Fasting)); Potassium 4.4 mmol/L (3.5-5.1); Sodium 138 mmol/L (136-145)
[2021-11-12] MEDS ORDERED: ASPIRIN 81 MG ECTAB PO SCH (21:00)
[2021-11-12] MEDS ORDERED: LOSARTAN POTASSIUM 25 MG TAB PO SCH (21:00)
[2021-11-12] MEDS ORDERED: glipiZIDE 5 MG TAB PO SCH (21:00)
[2021-11-12] MEDS ORDERED: AMOXICILLIN/CLAVULANATE 875 MG TAB PO SCH (21:00)
[2021-11-12] MEDS ORDERED: ATORVASTATIN 40 MG TAB PO SCH (21:00)
[2021-11-12] MEDS: FAMOTIDINE 20 MG TAB PO SCH (21:02)
[2021-11-12 21:04] LABS: Basophils # (auto) 0.04 K/uL (0-0.2); Basophils % (auto) 0.4 %; Hematocrit (blood only) 37.5 % (34.1-44.9); Hemoglobin 12.3 g/dl (12.0-16.0); Immature Granulocytes # (auto) 0.04 K/uL (0.00-0.02); Immature Granulocytes % (auto) 0.4 %; Lymphocytes # (auto) 1.38 K/uL (1.2-3.4); Lymphocytes % (auto) 14.3 %; Mean Corpuscular Hgb Conc 32.8 g/dL (32.0-36.0); Mean Corpuscular Volume 91.5 fL (80.0-100.0); Mean Platelet Volume 10.7 fL (9.4-12.3); Monocytes # (auto) 0.71 K/uL (0.24-0.82); Monocytes % (auto) 7.4 %; Neutrophils # (auto) 7.37 K/uL (1.4-6.5); Neutrophils % (auto) 76.5 %; Platelet Count 224 K/uL (130-400); RDW Coefficient of Variation 15.2 % (11.5-14.5); RDW Standard Deviation 50.7 fL (36.4-46.3); White Blood Count 9.64 K/ul (4.8-10.8)
[2021-11-13] MEDS: AMOXICILLIN/CLAVULANATE 875 MG TAB PO SCH ×2 (08:28→17:02)
[2021-11-13] MEDS: glipiZIDE 5 MG TAB PO SCH ×2 (08:29→17:02)
[2021-11-13] MEDS: FAMOTIDINE 20 MG TAB PO SCH (08:29)
[2021-11-13] MEDS ORDERED: METOPROLOL SUCC 25MG EXT REL TAB PO SCH (09:00)
[2021-11-13] MEDS ORDERED: PANTOprazole 40 MG TAB PO SCH (09:00)
[2021-11-13] MEDS: ACETAMINOPHEN 500 MG TAB PO PRN (14:36)
[2021-11-13 15:11] VITALS: TEMP 98.4; O2SAT 95
--- NOTE | 2021-11-13 16:12 | Discharge Summary ---
Date of Service November 13, 2021 Admission HPI Per Admitting Provider Svitlana Kerr is an 81 yo recently hospitalized at [facility] 11/07-11/09 after sustaining a dog bite to her right hand when she was playing with the dog. She was seen at [facility] and dog bite was sutured on 11/04 and placed on oral Clindamycin. However, upon returning home, increased redness and swelling which lead to her coming to the ER on 11/07. Pt was treated with Zosyn and then converted to Unasyn and transitioned to course of Augmentin upon d/c on 11/09. Pt has been recovering fine at home until today when the dog appeared to get his paw stuck in his collar, pt tried to assist him and believes the dog got scared and bit both of her hands. She put her hands up to protect her face and believes that is how he bit both hands. Regardless, she presented back to the hospital where her wounds were irrigated and redressed. She was given a dose of IV APAP 1g. Pt reports since both of her hands are now dressed she is unable to care for herself or her and subsequently was referred for admission. At this point, no labs have been drawn. X-rays obtained of both hands, no osseous pathology or soft tissue abnormality appreciated. No air seen within soft tissues. Erosive osteoarthritis noted. She is afebrile. Principal Diagnosis Dog bite to the hands Discharge Exam Vitals reviewed Gen: [AAOx3, NAD] HEENT: [anicteric sclerae, EOMI] CV: [RRR no mgr nl S1S2] Pulm: [CTAB no wcr] Abd: [+BS soft NT ND no masses or hernias] Ext: [right hand with no more edema, thumb with healed scabs and 2 small 0.5cm l acerations to dorsal hand; left hand with mild edema left thumb, several small nonbleeding lacs to dorsal left hand and palmar surface left thumb,no erythema, scant serous drainage dorsal left hand] Skin: [no rashes, warm/dry] Neuro: [full strength throughout] Discharge Data Allergies Allergy/AdvReac Type Severity Reaction Status Date / Time codeine Allergy Severe ANAPHALAXIS Verified 11/07/21 19:10 lisinopril AdvReac Mild cough Verified 11/07/21 19:10 oyster extract AdvReac Mild NAUSEA/VOMI Verified 09/13/21 22:33 TTING Consultations 11/12/21 15:50 ED Decision to Admit Stat Ordered Studies Hand xrays: Laboratory Results WBC 9.64 K/ul (4.8-10.8) 11/12/21 20:03 RBC 4.10 M/uL (3.93-5.22) 11/12/21 20:03 Hgb 12.3 g/dl (12.0-16.0) 11/12/21 20:03 Hct 37.5 % (34.1-44.9) 11/12/21 20:03 MCV 91.5 fL (80.0-100.0) 11/12/21 20:03 MCH 30.0 pg (25.0-34.0) 11/12/21 20:03 MCHC 32.8 g/dL (32.0-36.0) 11/12/21 20:03 RDW Std Deviation 50.7 fL (36.4-46.3) H 11/12/21 20:03 RDW Coeff of Bo 15.2 % (11.5-14.5) H 11/12/21 20:03 Plt Count 224 K/uL (130-400) 11/12/21 20:03 MPV 10.7 fL (9.4-12.3) 11/12/21 20:03 Immature Gran % (Auto) 0.4 % 11/12/21 20:03 Neut % (Auto) 76.5 % 11/12/21 20:03 Lymph % (Auto) 14.3 % 11/12/21 20:03 [place] % (Auto) 7.4 % 11/12/21 20:03 Eos % (Auto) 1.0 % 11/12/21 20:03 Baso % (Auto) 0.4 % 11/12/21 20:03 Neut # (Auto) 7.37 K/uL (1.4-6.5) H 11/12/21 20:03 Lymph # (Auto) 1.38 K/uL (1.2-3.4) 11/12/21 20:03 [place] # (Auto) 0.71 K/uL (0.24-0.82) 11/12/21 20:03 Eos # (Auto) 0.10 K/uL (0-0.50) 11/12/21 20:03 Baso # (Auto) 0.04 K/uL (0-0.2) 11/12/21 20:03 Immature Gran # (Auto) 0.04 K/uL (0.00-0.02) H 11/12/21 20:03 Sodium 138 mmol/L (136-145) 11/12/21 20:03 Potassium 4.4 mmol/L (3.5-5.1) 11/12/21 20:03 Chloride 106 mmol/L (98-107) 11/12/21 20:03 Carbon Dioxide 22 mmol/L (21-32) 11/12/21 20:03 Anion Gap 10 (3-11) 11/12/21 20:03 BUN 18 mg/dl (6-23) 11/12/21 20:03 Creatinine 1.02 mg/dl (0.6-1.2) 11/12/21 20:03 Est Cr Clr Drug Dosing Not Reportable 11/12/21 20:03 Est GFR ( Amer) 59.7 ml/min 11/12/21 20:03 Est GFR (Non-Af Amer) 51.5 ml/min 11/12/21 20:03 BUN/Creatinine Ratio 17.6 (10-20) 11/12/21 20:03 Glucose 269 mg/dl (70-99(Fasting)) H 11/12/21 20:03 POC Glucose 177 mg/dl (70-99) H 11/13/21 12:11 Calcium 9.4 mg/dl (8.5-10.1) 11/12/21 20:03 SARS-CoV-2, RNA, NAAT NEGATIVE (NEGATIVE) 11/12/21 15:37 Impressions Hand X-Ray 11/12/21 13:47 XR hand RT min 3V routine, XR hand LT min 3V routine CLINICAL HISTORY: dog bites to both hands. COMPARISON STUDY: No previous studies for comparison. TECHNIQUE: Both hands each 3 views FINDINGS: Bones: There is no evidence for an acute fracture or dislocation. There is no lytic or blastic lesion. Joints: There is marked narrowing of the second DIP joints bilaterally with evidence for erosive osteoarthritis bilaterally. Mild narrowing is present involving the remaining IP joints. There is marked joint space narrowing and degenerative changes at the first CMC joints bilaterally. The bones are in anatomic alignment. Soft tissues: There is no focal soft tissue abnormality. There is no air seen within the soft tissues. There is no radiopaque foreign body. IMPRESSION: 1. No acute osseous pathology. 2. Erosive osteoarthritis. ACT 112: Negative or not required by law. Electronically signed by: David Victor M.D. 11/12/2021 2:09 PM Hospital Course (1) Dog bite of hand without complication: Dog bites sustained of both right and left hands w/o cellulitis in setting of recent hospitalization for right hand dog bite cellulitis now improving - Placed in observation overnight for pain control - labs including cbc w/ diff and bmp normal, no fever - Continue Augmentin and extend course for another 10 days from time of second bite - Wound care consult, appreciate assistance - Will arrange for home health upon d/c for wound care checks -redressed wounds here today prior to discharge--> no active bleeding, no signs of cellulitis -pain control with tylenol and/or ibuprofen continue elevation, dressing changes - Stressed importance that pt needs to have the dog removed from the home which she is doing (2) Hypertension: - Continue Losartan and Metoprolol (3) Hyperlipidemia: - Continue Atorvastatin (4) GERD (gastroesophageal reflux disease): - Continue Pepcid and Protonix (5) Diabetes mellitus, type 2: - Carb consistent diet - Continue Glipizide and Metformin Plan CM arranged for home health follow up given that she has injured both hands make it difficult for her to drive. They can send plumber and tinner to check wounds. Home Health Attestation I certify that this patient is under my care and that I, or a physicians assistant media planner working with me, had a face to-face encounter that meets the home health [id number] encounter requirements with this patient. The encounter with the patient was in whole, or in part, for the following medical condition, which is the primary reason for home health care (list medical condition): dog bite I certify that, based on my findings, the following services are medically necessary home health services: My clinical findings support the need for the above services because: Skilled Nsg Assessment Skilled Nsg Assessment Surgical Incision / Wound Further, I certify that my clinical findings support that this patient is homebound (i.e. absences from home require considerable and taxing effort and are for medical reasons or restoration services or infrequently or of short duration when for other reasons) because: Supportive Aid - Walker Transportation Assistance/Unable to Leave Home Unassisted Certification for Home Health Services: Based on the above findings, I certify that this patient is confined to the home and needs intermittent prison care, physical therapy and/or speech therapy or continues to need occupational therapy. The patient is under my care, and I have initiated the establishment of the plan of care. This patient will be followed by a physician who will periodically review the plan of care. Total Time Total Time Spent Total Time Spent (In Minutes): 35 min Discharge Plan Discharge Items Patient Disposition: Home - Home Health Services Reason For Visit: DOG BITE Discharge Diagnosis: Dog bite to the hands Condition on Discharge: Fair Activity: As commented below Lifting: None Bathing: No limitations Bathing Comment: can wash hands with soap and water, pat dry, then apply dressings Exercise/Sports: As tolerated Driving/Machine Use: No driving until pain in hands improved Non-emergency contact: Primary Care Provider Call non-emergency contact if: you have any medication questions, your symptoms worsen and your pain is not controlled Follow-up/Referrals: Vince Skinner MD [Primary Care Provider] - (Follow up within 1-2 weeks) Diet: Regular Addtl Attending Provider Instructions: Please extend your course of antibiotics through the end of 11/21/21. Another prescription for the antibiotics was sent into your pharmacy for you for 4 more days worth of medicine. You can take acetaminophen (Tylenol) or ibuprofen as needed for pain. Keep your hands elevated as much as you can above your heart. Your wounds were dressed here and the home visiting nurse will be out to check on you tomorrow and assist with wound care dressing changes. Please follow up with the [facility] clinic in 1 week. This will be scheduled for you. Pending Studies at Discharge: No Stand-Alone Forms: My [facility] Medications and DC Order Prescriptions: New acetaminophen [Tylenol Extra Strength] 500 mg Tablet 1,000 mg PO Q8H PRN (Reason: pain) Qty: 60 0RF Rx Instructions: OTC ibuprofen 200 mg tablet 400 mg PO Q6H PRN (Reason: fever or pain) Qty: 30 0RF Rx Instructions: OTC Continued (DME) CPAP Machine Misc See Rx Instructions .MEDSUPPLY Qty: 1 0RF Rx Instructions: CPAP at 8 cm water with C-Flex of 2. G47.33 albuterol sulfate 90 mcg/actuation HFA aerosol inhaler 2 puff inhalation Q6H PRN (Reason: shortness of breath or wheezing) Qty: 1 5RF Rx Instructions: Ventolin [employer] for insurance to cover levocetirizine 5 mg tablet 5 mg PO DAILY PRN (Reason: allergy symptoms) Qty: 30 3RF Rx Instructions: Take daily for 10 days then PRN (DME) Incentive Spirometer Misc See Rx Instructions .MEDSUPPLY Qty: 1 0RF Rx Instructions: As directed (DME) CPAP Supplies Misc See Rx Instructions .MEDSUPPLY Qty: 1 0RF Rx Instructions: CPAP supplies. G47.33 coenzyme Q10 [CoQ-10] 100 mg capsule 200 mg PO DAILY cholecalciferol (vitamin D3) 25 mcg (1,000 unit) capsule 25 mcg PO DAILY aspirin 81 mg tablet,delayed release (DR/EC) 81 mg PO QPM atorvastatin 40 mg Tablet 40 mg PO PM glipizide 10 mg Tablet 10 mg PO BID pantoprazole 40 mg Tablet,Delayed Release (Dr/Ec) 40 mg PO QAM metformin 1,000 mg Tablet 1,000 mg PO BID losartan 25 mg Tablet 25 mg PO QPM metoprolol succinate 25 mg tablet extended release 24 hr 25 mg PO DAILY magnesium oxide 500 mg capsule 500 mg PO BID Qty: 30 0RF cyanocobalamin (vitamin B-12) [Vitamin B-12] 1,000 mcg Tablet 1,000 mcg PO DAILY calcium carbonate [Calcium 600] 600 mg calcium (1,500 mg) Tablet 600 mg PO DAILY famotidine 20 mg tablet 20 mg PO BID Slow Fe 142 mg (45 mg iron) Tablet Extended Release 0 mg PO DAILY amoxicillin-pot clavulanate 875-125 mg tablet 1 tab PO BID Qty: 8 0RF Discontinued cholecalciferol (vitamin D3) [Vitamin D3] 25 mcg (1,000 unit) Tablet 25 mcg PO DAILY Discharge Orders: Discharge Order (Routine); Ordered 11/13/21 Ordered By: Jackie Esparza Admission Data Admit Date/Time: 11/12/21 16:28 Attending Provider: Jackie Esparza Admit Provider: Jackie Esparza Primary Care Provider: Vince Skinner Other Providers: Wild Roman Coding Level of Care Code 41175 OBS Care - Discharge Diagnoses Dog bite of hand without complication S61.459A; W54.0XXA Hypertension I10 Hyperlipidemia E78.5 GERD (gastroesophageal reflux disease) K21.9 Diabetes mellitus, type 2 E11.9
[2021-11-13 16:44] VITALS: BP 143/79; PULSE 90
== END 2021-11-13 17:40 | disposition home health service (06) ==
LOC: ED 13:17 → 3N 13:17
DX: E11.9 Type 2 diabetes mellitus without complications; Z79.899 Other long term (current) drug therapy; Z79.51 Long term (current) use of inhaled steroids; I10 Essential (primary) hypertension; K21.9 Gastro-esophageal reflux disease without esophagitis; S61.452A Open bite of left hand, initial encounter; S61.451A Open bite of right hand, initial encounter; E78.5 Hyperlipidemia, unspecified; Z88.5 Allergy status to narcotic agent; Z79.82 Long term (current) use of aspirin; Z79.84 Long term (current) use of oral hypoglycemic drugs; W54.0XXA Bitten by dog, initial encounter; M19.90 Unspecified osteoarthritis, unspecified site

== ENCOUNTER 2022-05-23 14:15 | Inpatient (IN) ==
--- NOTE | 2022-05-23 14:54 | Emergency Department Note ---
Impression & Plan Rhabdomyolysis, Fall, Contusion of hip, left, Contusion of knee, left, Contusion of ankle, left ED Provider Note NAME: GARO ZHANG AGE: 81 SEX: F : 1940 ARRIVES VIA: Walk-In INFORMANT: Patient, ED PROVIDER(S): Phil Smith DO CHIEF COMPLAINT: Leg pain HPI: The patient is an 81-year-old female who presented to the emergency departm ent by triage for an evaluation of leg pain. The patient states that she was walking and her left leg gave out while she was trying to get into a vehicle. She fell with her left leg behind her. She does state that she was able to bear weight but has significant pain through her leg. She also complains of neck pain. The patient states that she has chronic problems with knee arthritis. She had an injection in her knees last week. She states that that did help with the pain. She was told that she may need knee replacement but she would prefer not to have that. The patient denies having any chest pain or difficulty breathing. She denies having any abdominal pain. The patient states that she has pain in her left leg all the way to her ankle. The patient denies having any upper extremity pain. She was told to come to the emergency department by her orthopedic physician. ROS: See above HPI for pertinent positives & negatives. A total of 10 systems reviewed and were otherwise negative. PAST MEDICAL HISTORY: See Below PAST SURGICAL HISTORY: See Below FAMILY HISTORY: See Below SOCIAL HISTORY: See Below HOME MEDICATIONS: See Below ALLERGIES: See Below VITALS: See Below PHYSICAL EXAMINATION: GENERAL: Patient is awake alert in no acute distress patient is resting comfortably and showing no signs of anxiety EYES: The conjunctivae are clear. The pupils are round and reactive. EARS, NOSE, MOUTH AND THROAT: The nose is without any evidence of any deformity. Mucous membranes are moist. NECK: There is tenderness to palpation over the lower cervical spine. RESPIRATORY: Normal respiratory effort is noted there is no evidence of wheezing rhonchi or rales CARDIOVASCULAR: Regular rate and rhythm noted there no murmurs rubs or gallops normal S1 normal S2. GASTROINTESTINAL: The abdomen is soft. Abdomen is nontender. BACK: There is no midline tenderness noted to palpation. Range of motion appears intact. MUSCULOSKELETAL/EXTREMITIES: There is tenderness noted over the lower extremity. There is palpable tenderness over the left ankle with abrasions noted over the left ankle. Patient had range of motion tenderness and pain with the left knee as well as the left hip. There is no deformity. SKIN: Skin is warm and dry. There is no pedal edema. Pulses are symmetric in both feet. NEUROLOGIC: Patient is awake alert and oriented x3. The patient is able to hold both legs off the bed for greater than 5 seconds. MEDICAL DECISION MAKING: The patient is an 81-year-old female who presented to the emergency department for leg pain and leg weakness. The patient states that she fell after her left leg buckled and she fell on top of it. The patient did have significant pain as well as abrasions to the leg. Radiographic studies were obtained and no bony abnormality was noted. The patient was found to have an elevation in her CPK. It is possible this explains the pain as well as the weakness. I discussed the patient's other laboratory and radiographic studies with her. Given the elevati on in her CPK as well as the patient's significant difficulty with ambulating I discussed her condition with the on-call [facility] hospitalist. They have agreed to evaluate the patient in the emergency department for further management and disposition. Triage Nursing notes reviewed. Prior medical records reviewed Vital Signs: reviewed and remarkable for elevated blood pressure Differential diagnosis: Fracture, subluxation, dislocation, contusion, ligamentous injury, neurovascular, compartment syndrome, rhabdomyolysis, as well as other pathologies. ER treatment provided: See below Diagnostics interpreted by me: ECG: EKG was obtained in the emergency department. My interpretation is normal sinus rhythm at 60 bpm. There was no ectopy. There was no acute ST segment abnormalities noted. This was compared to a tracing from September 13, 2021. No changes were noted. Cardiac Monitoring: An order was placed for continuous cardiac monitoring. The monitor shows a rate of 70 bpm with sinus rhythm. Laboratory studies: As stated above and show below. Imaging studies: See below. Radiographic imaging was reviewed by myself Consultation(s): I discussed this case with Dr. Mederos [facility]. Past Med/Surg History Medical History Asthma HAS NOT USED RESCUE INHALER FOR A WHILE Diabetes mellitus, type 2 GERD (gastroesophageal reflux disease) Hx of meningioma of the brain Hyperlipidemia Hypertension Osteoarthritis Peripheral neuropathy Seasonal allergies Sleep apnea DOES NOT USE DEVICE "CURRENTLY" Thyroid cyst THYROID GROWTH (HX BIOPSY) Surgical History History of anesthesia reaction PLEASE SEE VOCAL CORD PARALYSIS NOTE History of cataract surgery RT/LEFT History of colonoscopy History of dilatation and curettage X 2 History of tooth extraction Hx of craniotomy DURING PROCEURE NICKED VOCAL CORD (2019) [facility] IN [place] 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 D/T CORRECTIVE SURGERY VOCAL CORD CORRECTION USING FAT FROM ABDOMEN TO BUILD UP THE VOCAL CORD ([facility]) Retinal tear of both eyes LASER RT/LEFT Family History Father Family hx of colon cancer Family history of diabetes mellitus Other Cancer Heart disease Tuberculosis Denies family history of Asthma Social History Smoking Status: Never smoker Second Hand Exposure: No; Hx Alcohol Use: No Hx Substance Use: No Preferred Language: Belarusian Communication Ability: Effective Visual Impairment: Limited Hearing Ability: Use of Hearing Aid Timber Sizer Required: No Beliefs That Will Affect Care: Mandaeism Mandaeism Beliefs: Presybeterian marital status: Current Living Situation: Spouse Feels Safe at Home: Yes caffeine: Yes Do you think of yourself as: straight/heterosexual Gender Identity: Female Assistive Devices: Cane, CPAP, Glasses, Hearing Aid - Bilateral and Walker Allergies Allergies Allergy/AdvReac Type Severity Reaction Status Date / Time codeine Allergy Severe ANAPHALAXIS Verified 05/23/22 19:09 lisinopril AdvReac Mild cough Verified 05/23/22 19:09 oyster extract AdvReac Mild NAUSEA/VOMI Verified 05/23/22 19:09 TTING Home Meds Home Medications Medication Instructions Recorded Confirmed atorvastatin 40 mg tablet 40 mg PO QAM 01/27/20 05/23/22 glipizide 10 mg tablet 10 mg PO BID 01/27/20 05/23/22 losartan 25 mg tablet 25 mg PO QPM 01/27/20 05/23/22 metformin 1,000 mg tablet 1,000 mg PO BID 01/27/20 05/23/22 aspirin 81 mg tablet,delayed 81 mg PO QPM 01/04/21 05/23/22 release cholecalciferol (vitamin D3) 25 25 mcg PO QAM 01/04/21 05/23/22 mcg (1,000 unit) capsule coenzyme Q10 100 mg capsule 200 mg PO QAM 01/04/21 05/23/22 (CoQ-10) metoprolol succinate 25 mg 25 mg PO QAM 09/13/21 05/23/22 tablet,extended release 24 hr calcium carbonate 600 mg calcium 600 mg PO QAM 11/07/21 05/23/22 (1,500 mg) tablet (Calcium) fexofenadine 180 mg tablet 180 mg PO QAM 05/23/22 05/23/22 pantoprazole 40 mg tablet,delayed 40 mg PO QAM 05/23/22 05/23/22 release Previous Rx's Medication Instructions Recorded CPAP Machine #1 ea 02/01/21 CPAP Supplies #1 ea 06/06/21 Incentive Spirometer #1 ea 06/06/21 magnesium oxide 500 mg capsule 500 mg PO BID #30 caps 09/15/21 Results & Data (ED) Vital Signs Vital Signs - 24 hr 05/23/22 14:16 05/23/22 15:12 05/23/22 14:45 Temperature 36.8 C Temperature Source Temporal Artery Scan Pulse Rate 75 60 Pulse Rate [Apical] Pulse Rhythm Regular Respiratory Rate 20 Respiratory Effort / Characteristics Non-Labored Spontaneous Respiratory Depth Normal Blood Pressure 160/88 H Blood Pressure Mean 112 Pulse Oximetry 98 95 Oxygen Delivery Method Room Air Room Air Sepsis Recent Fever Within 48 Hours No Sepsis New/Unexplained Change in Mental Status No Sepsis Action Taken by Nursing No Action Required 05/23/22 19:40 05/23/22 20:00 Temperature Temperature Source Pulse Rate 78 Pulse Rate [Apical] 63 Pulse Rhythm Respiratory Rate 18 Respiratory Effort / Characteristics Respiratory Depth Blood Pressure Blood Pressure Mean Pulse Oximetry Oxygen Delivery Method Sepsis Recent Fever Within 48 Hours Sepsis New/Unexplained Change in Mental Status Sepsis Action Taken by [facility]pc Medications Current Medication List: was personally reviewed by me Laboratory Data Attestation: I reviewed the patient's lab results. 05/23/22 15:00 05/23/22 15:00 Lab Results 05/23/22 05/23/22 05/23/22 Range/Units 15:00 15:00 15:00 WBC 10.55 (4.8-10.8) K/ul RBC 4.33 (4.20-5.40) M/uL Hgb 12.7 (12.0-16.0) g/dl Hct 38.7 (37.0-47.0) % MCV 89.4 (80.0-100.0) fL MCH 29.3 (25.0-34.0) pg MCHC 32.8 (32.0-36.0) g/dL RDW Std Deviation 46.6 H (36.4-46.3) fL RDW Coeff of Bo 14.2 (11.5-14.5) % Plt Count 204 (130-400) K/uL MPV 10.2 (9.4-12.4) fL Immature Gran % (Auto) 0.4 % Neut % (Auto) 77.8 % Lymph % (Auto) 12.7 % [place] % (Auto) 7.8 % Eos % (Auto) 0.8 % Baso % (Auto) 0.5 % Neut # (Auto) 8.22 H (1.40-6.50) K/uL Lymph # (Auto) 1.34 (1.2-3.4) K/uL [place] # (Auto) 0.82 H (0.11-0.59) K/uL Eos # (Auto) 0.08 (0-0.50) K/uL Baso # (Auto) 0.05 (0-0.2) K/uL Immature Gran # (Auto) 0.04 (0.01-0.20) K/uL PT 11.3 (9.0-12.0) Seconds INR 1.1 (0.9-1.1) APTT 25.0 (21.0-31.0) Seconds PTT Ratio 0.9 Sodium 140 (136-145) mmol/L Potassium 4.2 (3.5-5.1) mmol/L Chloride 106 (98-107) mmol/L Carbon Dioxide 26 (21-32) mmol/L Anion Gap 8 (3-11) BUN 20 (6-23) mg/dl Creatinine 0.97 (0.6-1.2) mg/dl Est Cr Clr Drug Dosing Not Reportable Est GFR ( Amer) 63.5 ml/min Est GFR (Non-Af Amer) 54.8 ml/min BUN/Creatinine Ratio 20.6 H (10-20) Glucose 198 H (70-99(Fasting)) mg/dl Calcium 9.6 (8.5-10.1) mg/dl Magnesium 2.0 (1.7-2.4) mg/dl Total Bilirubin 0.9 (0.2-1.0) mg/dl AST 20 (13-39) U/L ALT 10 (7-52) U/L Alkaline Phosphatase 59 (34-104) U/L Total Creatine Kinase 988 H (26-192) U/L Troponin I High Sens 12.8 (0-14) pg/ml Total Protein 6.7 (6.0-8.3) gm/dl Albumin 4.3 (3.4-5.0) gm/dl Globulin 2.4 L (2.5-4.0) gm/dl Albumin/Globulin Ratio 1.8 (0.9-2) TSH (0.300-4.500) uIu/ml Urine Color Urine Appearance (Clear) Urine pH (4.5-7.5) Ur Specific Brice (1.000-1.030) Urine Protein (Negative) Urine Glucose (UA) (Negative) Urine Ketones (Negative) Urine Blood (Negative) Urine Nitrite (Negative) Urine Bilirubin (Negative) Urine Urobilinogen (Negative) Ur Leukocyte Esterase (Negative) Urine WBC (Auto) (0-5) /hpf Urine RBC (Auto) (0-4) /hpf U Hyaline Cast (Auto) (0-5) /lpf U Epithel Cells (Auto) (0-5) /lpf Urine Bacteria (Auto) (Negative) 05/23/22 05/23/22 Range/Units 15:00 17:14 WBC (4.8-10.8) K/ul RBC (4.20-5.40) M/uL Hgb (12.0-16.0) g/dl Hct (37.0-47.0) % MCV (80.0-100.0) fL MCH (25.0-34.0) pg MCHC (32.0-36.0) g/dL RDW Std Deviation (36.4-46.3) fL RDW Coeff of Bo (11.5-14.5) % Plt Count (130-400) K/uL MPV (9.4-12.4) fL Immature Gran % (Auto) % Neut % (Auto) % Lymph % (Auto) % [place] % (Auto) % Eos % (Auto) % Baso % (Auto) % Neut # (Auto) (1.40-6.50) K/uL Lymph # (Auto) (1.2-3.4) K/uL [place] # (Auto) (0.11-0.59) K/uL Eos # (Auto) (0-0.50) K/uL Baso # (Auto) (0-0.2) K/uL Immature Gran # (Auto) (0.01-0.20) K/uL PT (9.0-12.0) Seconds INR (0.9-1.1) APTT (21.0-31.0) Seconds PTT Ratio Sodium (136-145) mmol/L Potassium (3.5-5.1) mmol/L Chloride (98-107) mmol/L Carbon Dioxide (21-32) mmol/L Anion Gap (3-11) BUN (6-23) mg/dl Creatinine (0.6-1.2) mg/dl Est Cr Clr Drug Dosing Est GFR ( Amer) ml/min Est GFR (Non-Af Amer) ml/min BUN/Creatinine Ratio (10-20) Glucose (70-99(Fasting)) mg/dl Calcium (8.5-10.1) mg/dl Magnesium (1.7-2.4) mg/dl Total Bilirubin (0.2-1.0) mg/dl AST (13-39) U/L ALT (7-52) U/L Alkaline Phosphatase (34-104) U/L Total Creatine Kinase (26-192) U/L Troponin I High Sens (0-14) pg/ml Total Protein (6.0-8.3) gm/dl Albumin (3.4-5.0) gm/dl Globulin (2.5-4.0) gm/dl Albumin/Globulin Ratio (0.9-2) TSH 1.912 (0.300-4.500) uIu/ml Urine Color Yellow Urine Appearance Clear (Clear) Urine pH 5.5 (4.5-7.5) Ur Specific Brice 1.023 (1.000-1.030) Urine Protein Negative (Negative) Urine Glucose (UA) 3+ H (Negative) Urine Ketones Negative (Negative) Urine Blood Negative (Negative) Urine Nitrite Negative (Negative) Urine Bilirubin Negative (Negative) Urine Urobilinogen Negative (Negative) Ur Leukocyte Esterase 1+ H (Negative) Urine WBC (Auto) 5-10 H (0-5) /hpf Urine RBC (Auto) 0-4 (0-4) /hpf U Hyaline Cast (Auto) 0 (0-5) /lpf U Epithel Cells (Auto) >30 H (0-5) /lpf Urine Bacteria (Auto) Negative (Negative) Administered Medications Discontinued Medications Sodium Chloride (Nss 1000ml) 500 mls @ 999 mls/hr IV .Q31M ONE Stop: 05/23/22 18:51 Last Infusion: 05/23/22 19:40 Dose: 0 mls/hr Documented By: Admin: 05/23/22 19:00 Dose: 999 mls/hr Documented By: AM Imaging Data Radiologist's Impression: Ankle X-Ray 05/23/22 14:45 XR ankle LT min 3V routine CLINICAL HISTORY: fall TECHNIQUE: 3 views of the left ankle were obtained. Comparison: None available at the time of this dictation. FINDINGS: No acute fractures are present. The alignment is anatomic. The ankle mortise is intact. A plantar enthesophyte is seen. The talar dome is smooth. There is no ankle effusion. No soft tissue abnormality is seen. IMPRESSION: No evidence of acute osseous injury. ACT 112: Negative or not required by law. Electronically signed by: Des Anna M.D. 05/23/2022 5:[address] 05/23/22 14:45 CT cervical spine wo con CLINICAL HISTORY: truama TECHNIQUE: Multidetector row helical CT of the cervical spine was performed without administration of intravenous contrast. Coronal and sagittal reformations were obtained. Automated dose lowering techniques and/or adjustment according to patient size were utilized for this exam. Comparison: None available at the time of this dictation. FINDINGS: No acute fractures or subluxations are identified. Degenerative changes are seen in the visualized spine. Postsurgical changes of craniotomy are incidentally noted. The alignment is normal. Soft tissues are unremarkable. IMPRESSION: Degenerative changes without evidence of acute bony injury. ACT 112: Negative or not required by law. Electronically signed by: Des Anna M.D. 05/23/2022 4:09 PM Chest X-Ray 05/23/22 14:45 SINGLE VIEW CHEST CLINICAL HISTORY: Generalized weakness. FINDINGS: An AP, portable, upright chest radiograph is compared to study dated 09/13/2021. Correlation is made with chest CT dated 04/19/2021. The cardiomediastinal heart is enlarged indenting atherosclerotic calcification of the thoracic aorta. The pulmonary vasculature is noncongested. Chronic interstitial thickening is similar to previous. The lungs and pleural spaces are clear noting bibasilar scarring/atelectasis. No pneumothorax is seen. The skeletal structures are osteopenic. The bony thorax is grossly intact. A large calcified gallstone is seen in the right upper quadrant. IMPRESSION: 1. Cardiomegaly with no active disease in the chest. 2. A large calcified gallstone is again seen in the right upper quadrant. ACT 112: Negative or not required by law. Electronically signed by: Jt Saleem M.D. 05/23/2022 5:18 PM Femur X-Ray 05/23/22 14:45 SINGLE VIEW PELVIS; 3 VIEWS LEFT FEMUR CLINICAL HISTORY: Fall. FINDINGS: An AP view of the pelvis with AP, frog-leg, and lateral views of the left femur are obtained. Comparison is made to radiographs of the left femur dated 09/13/2021. The skeletal structures are osteopenic. There is no radiographic evidence of acute fracture involving the hips or bony pelvis. There is no radiographic evidence of left femoral fracture. Mild arthritic change and joint space narrowing is seen in the hips. There is degenerative sclerosis of the sacroiliac joints and pubic symphysis. The left knee joint is grossly maintained noted arthritic change and chondrocalcinosis. The overlying soft tissues are within normal limits. Calcification at the origin of left hamstrings tendon is unchanged, as are calcifications in the pelvis. IMPRESSION: 1. No acute bony abnormality is seen involving the hips or pelvis. 2. There is no radiographic evidence of left femoral fracture. Electronically signed by: Jt Saleem M.D. 05/23/2022 5:15 PM Foot X-Ray 05/23/22 14:45 LEFT FOOT 3 VIEWS CLINICAL HISTORY: Fall. Left foot pain. FINDINGS: 3 views of the left foot are obtained. No prior studies are available for comparison at the time of dictation. The skeletal structures are osteopenic. No acute fracture is seen. There is moderate osteoarthritic change at the first metatarsophalangeal joint. [id number] arthritic change is present in the midfoot. There is a large plantar heel spur. Mild soft tissue swelling is suggested along the dorsum of the foot. IMPRESSION: 1. No acute fracture is identified. 2. Osteopenia with arthritic change and a large heel spur as above. Electronically signed by: Jt Saleem M.D. 05/23/2022 5:[address] 05/23/22 14:45 CT SCAN OF THE BRAIN WITHOUT IV CONTRAST CLINICAL HISTORY: Fall. COMPARISON STUDY: CT of the brain dated 09/13/2021. TECHNIQUE: Unenhanced axial CT scan of the brain is performed from the vertex to the skull base. A dose lowering technique was utilized adhering to the principles of ALARA. CT DOSE: 638.56 mGycm FINDINGS: Brain parenchyma: There is age-related involutional change noting [id number] subcortical and periventricular microangiopathic disease. There is no hemorrhage, mass effect, or evidence of acute territorial ischemia by CT criteria. Rueda-white matter differentiation is preserved. No extra-axial fluid collection is seen. Ventricles, sulci, cisterns: Prominent secondary to involutional change. Intracranial vasculature: There is atherosclerotic calcification of the cavernous carotid and vertebral arteries. Calvarium: The skeletal structures are osteopenic. No depressed calvarial fracture is identified. There is postsurgical change from left occipital craniectomy. Sinuses and mastoids: The visualized paranasal sinuses are clear. There is trace left mastoid effusion. The right mastoid air cells are well pneumatized. Orbits: The bony orbits are grossly intact. There are bilateral ocular lens implants. IMPRESSION: There is no hemorrhage, mass effect, or evidence of acute territorial ischemia by CT criteria. ACT 112: Negative or not required by law. Electronically signed by: Jt Saleem M.D. 05/23/2022 4:00 PM Knee X-Ray 05/23/22 14:45 XR knee LT 1 or 2V routine CLINICAL HISTORY: fall TECHNIQUE: 2 views of the left knee were obtained. Comparison: Comparison is made to left femur 05/23/2022 FINDINGS: There is no evidence of an acute fracture. Degenerative changes are seen in the knee joint. No joint effusion is seen. Vascular calcifications are noted. IMPRESSION: Degenerative changes without evidence of acute injury. ACT 112: Negative or not required by law. Electronically signed by: Des Anna M.D. 05/23/2022 5:16 PM Pelvis X-Ray 05/23/22 14:45 SINGLE VIEW PELVIS; 3 VIEWS LEFT FEMUR CLINICAL HISTORY: Fall. FINDINGS: An AP view of the pelvis with AP, frog-leg, and lateral views of the left femur are obtained. Comparison is made to radiographs of the left femur dated 09/13/2021. The skeletal structures are osteopenic. There is no radiographic evidence of acute fracture involving the hips or bony pelvis. There is no radiographic evidence of left femoral fracture. Mild arthritic change and joint space narrowing is seen in the hips. There is degenerative sclerosis of the sacroiliac joints and pubic symphysis. The left knee joint is grossly maintained noted arthritic change and chondrocalcinosis. The overlying soft tissues are within normal limits. Calcification at the origin of left hamstrings tendon is unchanged, as are calcifications in the pelvis. IMPRESSION: 1. No acute bony abnormality is seen involving the hips or pelvis. 2. There is no radiographic evidence of left femoral fracture. Electronically signed by: Jt Saleem M.D. 05/23/2022 5:15 PM Shoulder X-Ray 05/23/22 17:15 RIGHT SHOULDER 3 VIEWS CLINICAL HISTORY: Fall. Right shoulder pain. FINDINGS: 3 views of the right shoulder are obtained. No prior studies are available for comparison at the time of dictation. The skeletal structures are osteopenic. There is no radiographic evidence of fracture or dislocation. Mild arthritic change is seen in the glenohumeral and acromioclavicular joints. There is calcific tendinopathy. The overlying soft tissues are within normal limits. The visualized right lung parenchyma appears clear. IMPRESSION: No acute bony abnormality is identified. Electronically signed by: Jt Saleem M.D. 05/23/2022 6:32 PM Discharge Plan Visit Data Chief Complaint: Leg Injury/Pain Stated Complaint: L LEG PAIN ED Provider: Phil Simth Discharge Problem: Rhabdomyolysis, Fall, Contusion of hip, left, Contusion of knee, left, Co ntusion of ankle, left Patient Disposition: Being Evaluated by Hospitalist Forms Stand Alone Forms: My [facility] Prescriptions Prescriptions: No Action (DME) CPAP Machine Misc See Rx Instructions .MEDSUPPLY Qty: 1 0RF Rx Instructions: CPAP at 8 cm water with C-Flex of 2. G47.33 (DME) Incentive Spirometer Misc See Rx Instructions .MEDSUPPLY Qty: 1 0RF Rx Instructions: As directed (DME) CPAP Supplies Misc See Rx Instructions .MEDSUPPLY Qty: 1 0RF Rx Instructions: CPAP supplies. G47.33 coenzyme Q10 [CoQ-10] 100 mg capsule 200 mg PO QAM cholecalciferol (vitamin D3) 25 mcg (1,000 unit) capsule 25 mcg PO QAM aspirin 81 mg tablet,delayed release (DR/EC) 81 mg PO QPM atorvastatin 40 mg Tablet 40 mg PO QAM glipizide 10 mg Tablet 10 mg PO BID metformin 1,000 mg Tablet 1,000 mg PO BID losartan 25 mg Tablet 25 mg PO QPM metoprolol succinate 25 mg tablet extended release 24 hr 25 mg PO QAM magnesium oxide 500 mg capsule 500 mg PO BID Qty: 30 0RF fexofenadine [Marly] 180 mg Tablet 180 mg PO QAM pantoprazole 40 mg tablet,delayed release (DR/EC) 40 mg PO QAM calcium carbonate [Calcium 600] 600 mg calcium (1,500 mg) Tablet 600 mg PO QAM Referrals Referrals: Vince Skinner MD [Primary Care Provider] -
[2022-05-23 15:36] LABS: Basophils # (auto) 0.05 K/uL (0-0.2); Basophils % (auto) 0.5 %; Eosinophils # (auto) 0.08 K/uL (0-0.50); Eosinophils % (auto) 0.8 %; Hematocrit (blood only) 38.7 % (37.0-47.0); Hemoglobin 12.7 g/dl (12.0-16.0); Immature Granulocytes # (auto) 0.04 K/uL (0.01-0.20); Immature Granulocytes % (auto) 0.4 %; Lymphocytes # (auto) 1.34 K/uL (1.2-3.4); Lymphocytes % (auto) 12.7 %; Mean Corpuscular Hemoglobin 29.3 pg (25.0-34.0); Mean Corpuscular Hgb Conc 32.8 g/dL (32.0-36.0); Mean Corpuscular Volume 89.4 fL (80.0-100.0); Mean Platelet Volume 10.2 fL (9.4-12.4); Monocytes # (auto) 0.82 K/uL (0.11-0.59); Monocytes % (auto) 7.8 %; Neutrophils # (auto) 8.22 K/uL (1.40-6.50); Neutrophils % (auto) 77.8 %; Platelet Count 204 K/uL (130-400); RDW Coefficient of Variation 14.2 % (11.5-14.5); RDW Standard Deviation 46.6 fL (36.4-46.3); Red Blood Count 4.33 M/uL (4.20-5.40); White Blood Count 10.55 K/ul (4.8-10.8)
[2022-05-23 15:49] LABS: Alanine Aminotransferase 10 U/L (7-52); Albumin Globulin Ratio 1.8 (0.9-2); Albumin Level 4.3 gm/dl (3.4-5.0); Alkaline Phosphatase 59 U/L (34-104); Anion Gap 8 (3-11); Aspartate Aminotransferase 20 U/L (13-39); BUN Creatinine Ratio 20.6 (10-20); Bilirubin,Total 0.9 mg/dl (0.2-1.0); Blood Urea Nitrogen 20 mg/dl (6-23); Calcium 9.6 mg/dl (8.5-10.1); Carbon Dioxide 26 mmol/L (21-32); Chloride 106 mmol/L (98-107); Creatine Kinase 988 U/L (26-192); Est GFR (African American) 63.5 ml/min; Est GFR (Non-African American) 54.8 ml/min; Globulin 2.4 gm/dl (2.5-4.0); Glucose 198 mg/dl (70-99(Fasting)); Potassium 4.2 mmol/L (3.5-5.1); Sodium 140 mmol/L (136-145); Total Protein 6.7 gm/dl (6.0-8.3)
[2022-05-23 15:54] LABS: Troponin I High Sensitivity 12.8 pg/ml (0-14)
--- NOTE | 2022-05-23 16:01 | CT Scan Report ---
CT SCAN OF THE BRAIN WITHOUT IV CONTRAST CLINICAL HISTORY: Fall. COMPARISON STUDY: CT of the brain dated 09/13/2021. TECHNIQUE: Unenhanced axial CT scan of the brain is performed from the vertex to the skull base. A do se lowering technique was utilized adhering to the principles of ALARA. CT DOSE: 638.56 mGycm FINDINGS: Brain parenchyma: There is age-related involutional change noting [id number] subcortical and pe riventricular microangiopathic disease. There is no hemorrhage, mass effect, or evidence of acute ter ritorial ischemia by CT criteria. Rueda-white matter differentiation is preserved. No extra-axial flui d collection is seen. Ventricles, sulci, cisterns: Prominent secondary to involutional change. Intracranial vasculature: There is atherosclerotic calcification of the cavernous carotid and vertebr al arteries. Calvarium: The skeletal structures are osteopenic. No depressed calvarial fracture is identified. The re is postsurgical change from left occipital craniectomy. Sinuses and mastoids: The visualized paranasal sinuses are clear. There is trace left mastoid effusio n. The right mastoid air cells are well pneumatized. Orbits: The bony orbits are grossly intact. There are bilateral ocular lens implants. IMPRESSION: There is no hemorrhage, mass effect, or evidence of acute territorial ischemia by CT ness mariscal. ACT 112: Negative or not required by law. Electronically signed by: Jt Saleem M.D. 05/23/2022 4:00 PM
[2022-05-23 16:07] LABS: INR 1.1 (0.9-1.1); Partial Thromboplastin Ratio 0.9; Prothrombin Time 11.3 Seconds (9.0-12.0)
--- NOTE | 2022-05-23 16:10 | CT Scan Report ---
CT cervical spine wo con CLINICAL HISTORY: truaignacia TECHNIQUE: Multidetector row helical CT of the cervical spine was performed without administration of intravenous contrast. Coronal and sagittal reformations were obtained. Automated dose lowering techn iques and/or adjustment according to patient size were utilized for this exam. Comparison: None available at the time of this dictation. FINDINGS: No acute fractures or subluxations are identified. Degenerative changes are seen in the visualized sp ine. Postsurgical changes of craniotomy are incidentally noted. The alignment is normal. Soft tissues are unremarkable. IMPRESSION: Degenerative changes without evidence of acute bony injury. ACT 112: Negative or not required by law. Electronically signed by: Des Anna M.D. 05/23/2022 4:09 PM
--- NOTE | 2022-05-23 17:16 | XRay Report ---
SINGLE VIEW PELVIS; 3 VIEWS LEFT FEMUR CLINICAL HISTORY: Fall. FINDINGS: An AP view of the pelvis with AP, frog-leg, and lateral views of the left femur are obtaine d. Comparison is made to radiographs of the left femur dated 09/13/2021. The skeletal structures are o steopenic. There is no radiographic evidence of acute fracture involving the hips or bony pelvis. The re is no radiographic evidence of left femoral fracture. Mild arthritic change and joint space narrow ing is seen in the hips. There is degenerative sclerosis of the sacroiliac joints and pubic symphysis . The left knee joint is grossly maintained noted arthritic change and chondrocalcinosis. The overlyi ng soft tissues are within normal limits. Calcification at the origin of left hamstrings tendon is un changed, as are calcifications in the pelvis. IMPRESSION: 1. No acute bony abnormality is seen involving the hips or pelvis. 2. There is no radiographic evidence of left femoral fracture. Electronically signed by: Jt Saleem M.D. 05/23/2022 5:15 PM
--- NOTE | 2022-05-23 17:17 | XRay Report ---
XR knee LT 1 or 2V routine CLINICAL HISTORY: fall TECHNIQUE: 2 views of the left knee were obtained. Comparison: Comparison is made to left femur 05/23/2022 FINDINGS: There is no evidence of an acute fracture. Degenerative changes are seen in the knee joint. No joint effusion is seen. Vascular calcifications are noted. IMPRESSION: Degenerative changes without evidence of acute injury. ACT 112: Negative or not required by law. Electronically signed by: Des Anan M.D. 05/23/2022 5:16 PM
--- NOTE | 2022-05-23 17:18 | XRay Report ---
LEFT FOOT 3 VIEWS CLINICAL HISTORY: Fall. Left foot pain. FINDINGS: 3 views of the left foot are obtained. No prior studies are available for comparison at the time of dictation. The skeletal structures are osteopenic. No acute fracture is seen. There is moder ate osteoarthritic change at the first metatarsophalangeal joint. Zwrn-ky-czmkrxyr arthritic change i s present in the midfoot. There is a large plantar heel spur. Mild soft tissue swelling is suggested along the dorsum of the foot. IMPRESSION: 1. No acute fracture is identified. 2. Osteopenia with arthritic change and a large heel spur as above. Electronically signed by: Jt Saleem M.D. 05/23/2022 5:17 PM
--- NOTE | 2022-05-23 17:19 | XRay Report ---
XR ankle LT min 3V routine CLINICAL HISTORY: fall TECHNIQUE: 3 views of the left ankle were obtained. Comparison: None available at the time of this dictation. FINDINGS: No acute fractures are present. The alignment is anatomic. The ankle mortise is intact. A plantar ent hesophyte is seen. The talar dome is smooth. There is no ankle effusion. No soft tissue abnormality i s seen. IMPRESSION: No evidence of acute osseous injury. ACT 112: Negative or not required by law. Electronically signed by: Des Anna M.D. 05/23/2022 5:17 PM
--- NOTE | 2022-05-23 17:20 | XRay Report ---
SINGLE VIEW CHEST CLINICAL HISTORY: Generalized weakness. FINDINGS: An AP, portable, upright chest radiograph is compared to study dated 09/13/2021. Correlation is made with chest CT dated 04/19/2021. The cardiomediastinal heart is enlarged indenting atheroscler otic calcification of the thoracic aorta. The pulmonary vasculature is noncongested. Chronic intersti tial thickening is similar to previous. The lungs and pleural spaces are clear noting bibasilar scarr ing/atelectasis. No pneumothorax is seen. The skeletal structures are osteopenic. The bony thorax is grossly intact. A large calcified gallstone is seen in the right upper quadrant. IMPRESSION: 1. Cardiomegaly with no active disease in the chest. 2. A large calcified gallstone is again seen in the right upper quadrant. ACT 112: Negative or not required by law. Electronically signed by: Jt Saleem M.D. 05/23/2022 5:18 PM
[2022-05-23 17:31] LABS: Appearance Urine Clear (Clear); Bacteria Urine Automated Negative (Negative); Bilirubin Urine Negative (Negative); Blood Urine Negative (Negative); Cast Urine Automated 0 /lpf (0-5); Color Urine Yellow; Epithelial Cell Urine Auto >30 /lpf (0-5); Glucose Urine UA 3+ (Negative); Ketones Urine Negative (Negative); Leukocyte Esterase Urine 1+ (Negative); Nitrite Urine Negative (Negative); Protein Urine Negative (Negative); RBC Urine Automated 0-4 /hpf (0-4); Specific Gravity Urine 1.023 (1.000-1.030); Urobilinogen Urine Negative (Negative); pH Urine 5.5 (4.5-7.5)
--- NOTE | 2022-05-23 17:43 | Electrocardiogram Report ---
Test Reason : Blood Pressure : / mmHG Vent. Rate : 060 BPM Atrial Rate : 060 BPM P-R Int : 174 ms QRS Dur : 090 ms QT Int : 448 ms P-R-T Axes : 035 -42 019 degrees QTc Int : 448 ms Poor data quality, interpretation may be adversely affected Normal sinus rhythm Left axis deviation Abnormal ECG When compared with ECG of 13-SEP-2021 22:08, Vent. rate has decreased BY 29 BPM Confirmed by Maikol Muñoz ([id number]) on 05/23/2022 5:43:29 PM Referred By: Aneta Dove Confirmed By:Stefan Muñoz
[2022-05-23] MEDS ORDERED: SODIUM CHLORIDE 0.9% 1000ML 500 ML IV ONE (18:21)
--- NOTE | 2022-05-23 18:34 | XRay Report ---
RIGHT SHOULDER 3 VIEWS CLINICAL HISTORY: Fall. Right shoulder pain. FINDINGS: 3 views of the right shoulder are obtained. No prior studies are available for comparison a t the time of dictation. The skeletal structures are osteopenic. There is no radiographic evidence of fracture or dislocation. Mild arthritic change is seen in the glenohumeral and acromioclavicular chicho nts. There is calcific tendinopathy. The overlying soft tissues are within normal limits. The visuali zed right lung parenchyma appears clear. IMPRESSION: No acute bony abnormality is identified. Electronically signed by: Jt Saleem M.D. 05/23/2022 6:32 PM
--- NOTE | 2022-05-23 18:53 | History & Physical Report ---
Date of Service May 23, 2022 Assessment & Plan (1) Rhabdomyolysis: Plan: Very mild. 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 She is awaiting an appointment with Dr Hsu to have this worked up as an outpatient. No acute changes to suggest need for acute inpatient workup. (4) Hypomagnesemia: Plan: Replaced on admission. Continue oral supplementation (5) Hypertension: Plan: Continue losartan 25 mg p.o. daily, metoprolol succinate 25 mg p.o. daily (6) Hyperlipidemia: Plan: Hold statin while rhabdomyolysis resolved (7) GERD (gastroesophageal reflux disease): Plan: Continue pantoprazole 40 mg p.o. daily (8) Diabetes mellitus, type 2: Plan: Hemoglobin A1c 8.0 in August 2021. Repeat with a.m. labs. Continue metformin and glipizide at current time dosing. NovoLog as needed for correction only. (9) MARTHA (obstructive sleep apnea): Plan: Current home CPAP on recall CPAP at bedtime Plan VTE Prophylaxis - deferred given likely short duration of stay, consider chemical prophylaxis if patient is to stay beyond tomorrow Diet - T2DM Disposition - admit to med/surg Admission and Anticipated Discharge Date Admission Date: May 23, 2022 History of Present Illness Chief Complaint: Fall, left leg pain Primary Care Provider: Vince Skinner MD Svitlana Kerr is an 81 year old female who presents to the ER due to left leg pain. She reports her left leg buckling when she went to get into her car yesterday. She had her right leg in the car and her left leg buckled and she went back on it. She bumped her head and right shoulder. She tried to call somebody but no one was there and eventually made it back into the car to drive time. Their helped her out of the car using her roller. She put ice on her leg and could only sit till she went to bed. She reports current severity 8/10. Pain is much worse today especially across her back and from her knee to ankle when she tries to stand on her leg. She denies any pain radiating down from her back. She reports chronic issues with her left leg and her knee buckling. Initially felt to be due to low magnesium levels. She reports improvement also with knee injections by her orthopedic physician which she had just a few days ago. Allergies Allergy/AdvReac Type Severity Reaction Status Date / Time codeine Allergy Severe ANAPHALAXIS Verified 05/23/22 19:09 lisinopril AdvReac Mild cough Verified 05/23/22 19:09 oyster extract AdvReac Mild NAUSEA/VOMI Verified 05/23/22 19:09 TTING Home Medications Medication Instructions Recorded Confirmed Type atorvastatin 40 mg tablet 40 mg PO QAM 01/27/20 05/23/22 History glipizide 10 mg tablet 10 mg PO BID 01/27/20 05/23/22 History losartan 25 mg tablet 25 mg PO QPM 01/27/20 05/23/22 History metformin 1,000 mg tablet 1,000 mg PO BID 01/27/20 05/23/22 History aspirin 81 mg tablet,delayed 81 mg PO QPM 01/04/21 05/23/22 History release cholecalciferol (vitamin D3) 25 25 mcg PO QAM 01/04/21 05/23/22 History mcg (1,000 unit) capsule coenzyme Q10 100 mg capsule 200 mg PO QAM 01/04/21 05/23/22 History (CoQ-10) CPAP Machine #1 ea 02/01/21 05/23/22 Rx CPAP Supplies #1 ea 06/06/21 05/23/22 Rx Incentive Spirometer #1 ea 06/06/21 05/23/22 Rx metoprolol succinate 25 mg 25 mg PO QAM 09/13/21 05/23/22 History tablet,extended release 24 hr magnesium oxide 500 mg capsule 500 mg PO BID #30 caps 09/15/21 05/23/22 Rx calcium carbonate 600 mg calcium 600 mg PO QAM 11/07/21 05/23/22 History (1,500 mg) tablet (Calcium) fexofenadine 180 mg tablet 180 mg PO QAM 05/23/22 05/23/22 History pantoprazole 40 mg tablet,delayed 40 mg PO QAM 05/23/22 05/23/22 History release Past Med/Surg History Medical History Asthma HAS NOT USED RESCUE INHALER FOR A WHILE Diabetes mellitus, type 2 GERD (gastroesophageal reflux disease) Hx of meningioma of the brain Hyperlipidemia Hypertension Osteoarthritis Peripheral neuropathy Seasonal allergies Sleep apnea DOES NOT USE DEVICE "CURRENTLY" Thyroid cyst THYROID GROWTH (HX BIOPSY) Surgical History History of anesthesia reaction PLEASE SEE VOCAL CORD PARALYSIS NOTE History of cataract surgery RT/LEFT History of colonoscopy History of dilatation and curettage X 2 History of tooth extraction Hx of craniotomy DURING PROCEURE NICKED VOCAL CORD (2019) [facility] IN [place] 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 D/T CORRECTIVE SURGERY VOCAL CORD CORRECTION USING FAT FROM ABDOMEN TO BUILD UP THE VOCAL CORD ([facility]) Retinal tear of both eyes LASER RT/LEFT Family History Father Family hx of colon cancer Family history of diabetes mellitus Other Cancer Heart disease Tuberculosis Denies family history of Asthma Social History Smoking Status: Never smoker Second Hand Exposure: Yes; Hx Alcohol Use: No Hx Substance Use: No Preferred Language: Vietnamese Communication Ability: Effective Visual Impairment: Limited Hearing Ability: Use of Hearing Aid Paid Search Analyst Required: No Beliefs That Will Affect Care: Quaker Quaker Beliefs: Evangelical marital status: Current Living Situation: Spouse Other Information That Helps Us Care for You: No Feels Safe at Home: Yes Safety Concerns: Feels Safe At This Time caffeine: Yes Do you think of yourself as: straight/heterosexual Gender Identity: Female Assistive Devices: Cane, CPAP, Glasses, Hearing Aid - Bilateral and Walker Review of Systems Review of Systems: All systems reviewed & are unremarkable except as noted in HPI & below Chronic intermittent pain and change in sensation of her left greater than right upper extremity Physical Exam Constitutional: WD/WN, vitals as above Eyes: + anicteric sclerae; normal pupil size Respiratory: normal respiratory effort, lungs clear to auscultation Cardiovascular: RRR, no murmur, no edema Musculoskeletal: no cyanosis or clubbing, extremities motor strength 5/5 No pain on int/ext rotation of left or right hips ankle edema and painful to palpation Skin: + ecchymosis (3-4cm circumference over left knee) Trauma: + abrasion (left lateral ankle) Neurologic: moves all extremities and awake; not confused Motor/Sensory: no sensory deficit Psychiatric: A+Ox3, euthymic affect Results & Data Results & Data ([facility]) Vital Signs (Past 12 Hours) Vital Signs Temp Pulse Resp BP Pulse Ox O2 Del Method 05/23/22 14:45 95 Room Air 05/23/22 15:12 60 05/23/22 14:16 36.8 C 75 20 160/88 H 98 Room Air Laboratory Results Abnormal lab results 05/23/22 05/23/22 05/23/22 Range/Units 15:00 15:00 17:14 RDW Std Deviation 46.6 H (36.4-46.3) fL Neut # (Auto) 8.22 H (1.40-6.50) K/uL [place] # (Auto) 0.82 H (0.11-0.59) K/uL BUN/Creatinine Ratio 20.6 H (10-20) Glucose 198 H (70-99(Fasting)) mg/dl Total Creatine Kinase 988 H (26-192) U/L Globulin 2.4 L (2.5-4.0) gm/dl Urine Glucose (UA) 3+ H (Negative) Ur Leukocyte Esterase 1+ H (Negative) Urine WBC (Auto) 5-10 H (0-5) /hpf U Epithel Cells (Auto) >30 H (0-5) /lpf Diagnostic Findings CT SCAN OF THE BRAIN WITHOUT IV CONTRAST CLINICAL HISTORY: Fall. COMPARISON STUDY: CT of the brain dated 09/13/2021. TECHNIQUE: Unenhanced axial CT scan of the brain is performed from the vertex to the skull base. A dose lowering technique was utilized adhering to the principles of ALARA. CT DOSE: 638.56 mGycm FINDINGS: Brain parenchyma: There is age-related involutional change noting cocn-vd-xudpbxar subcortical and periventricular microangiopathic disease. There is no hemorrhage, mass effect, or evidence of acute territorial ischemia by CT criteria. Rueda-white matter differentiation is preserved. No extra-axial fluid collection is seen. Ventricles, sulci, cisterns: Prominent secondary to involutional change. Intracranial vasculature: There is atherosclerotic calcification of the cavernous carotid and vertebral arteries. Calvarium: The skeletal structures are osteopenic. No depressed calvarial fracture is identified. There is postsurgical change from left occipital craniectomy. Sinuses and mastoids: The visualized paranasal sinuses are clear. There is trace left mastoid effusion. The right mastoid air cells are well pneumatized. Orbits: The bony orbits are grossly intact. There are bilateral ocular lens implants. IMPRESSION: There is no hemorrhage, mass effect, or evidence of acute territorial ischemia by CT criteria. CT cervical spine wo con CLINICAL HISTORY: truaks TECHNIQUE: Multidetector row helical CT of the cervical spine was performed without administration of intravenous contrast. Coronal and sagittal reformations were obtained. Automated dose lowering techniques and/or adjustment according to patient size were utilized for this exam. Comparison: None available at the time of this dictation. FINDINGS: No acute fractures or subluxations are identified. Degenerative changes are seen in the visualized spine. Postsurgical changes of craniotomy are incidentally noted. The alignment is normal. Soft tissues are unremarkable. IMPRESSION: Degenerative changes without evidence of acute bony injury. SINGLE VIEW CHEST CLINICAL HISTORY: Generalized weakness. FINDINGS: An AP, portable, upright chest radiograph is compared to study dated 09/13/2021. Correlation is made with chest CT dated 04/19/2021. The cardiomediastinal heart is enlarged indenting atherosclerotic calcification of the thoracic aorta. The pulmonary vasculature is noncongested. Chronic interstitial thickening is similar to previous. The lungs and pleural spaces are clear noting bibasilar scarring/atelectasis. No pneumothorax is seen. The skeletal structures are osteopenic. The bony thorax is grossly intact. A large calcified gallstone is seen in the right upper quadrant. IMPRESSION: 1. Cardiomegaly with no active disease in the chest. 2. A large calcified gallstone is again seen in the right upper quadrant. RIGHT SHOULDER 3 VIEWS CLINICAL HISTORY: Fall. Right shoulder pain. FINDINGS: 3 views of the right shoulder are obtained. No prior studies are available for comparison at the time of dictation. The skeletal structures are osteopenic. There is no radiographic evidence of fracture or dislocation. Mild arthritic change is seen in the glenohumeral and acromioclavicular joints. There is calcific tendinopathy. The overlying soft tissues are within normal limits. The visualized right lung parenchyma appears clear. IMPRESSION: No acute bony abnormality is identified. SINGLE VIEW PELVIS; 3 VIEWS LEFT FEMUR CLINICAL HISTORY: Fall. FINDINGS: An AP view of the pelvis with AP, frog-leg, and lateral views of the left femur are obtained. Comparison is made to radiographs of the left femur dated 09/13/2021. The skeletal structures are osteopenic. There is no radiographic evidence of acute fracture involving the hips or bony pelvis. There is no radiographic evidence of left femoral fracture. Mild arthritic change and joint space narrowing is seen in the hips. There is degenerative sclerosis of the sacroiliac joints and pubic symphysis. The left knee joint is grossly maintained noted arthritic change and chondrocalcinosis. The overlying soft tissues are within normal limits. Calcification at the origin of left hamstrings tendon is unchanged, as are calcifications in the pelvis. IMPRESSION: 1. No acute bony abnormality is seen involving the hips or pelvis. 2. There is no radiographic evidence of left femoral fracture. XR knee LT 1 or 2V routine CLINICAL HISTORY: fall TECHNIQUE: 2 views of the left knee were obtained. Comparison: Comparison is made to left femur 05/23/2022 FINDINGS: There is no evidence of an acute fracture. Degenerative changes are seen in the knee joint. No joint effusion is seen. Vascular calcifications are noted. IMPRESSION: Degenerative changes without evidence of acute injury. XR ankle LT min 3V routine CLINICAL HISTORY: fall TECHNIQUE: 3 views of the left ankle were obtained. Comparison: None available at the time of this dictation. FINDINGS: No acute fractures are present. The alignment is anatomic. The ankle mortise is intact. A plantar enthesophyte is seen. The talar dome is smooth. There is no ankle effusion. No soft tissue abnormality is seen. IMPRESSION: No evidence of acute osseous injury. LEFT FOOT 3 VIEWS CLINICAL HISTORY: Fall. Left foot pain. FINDINGS: 3 views of the left foot are obtained. No prior studies are available for comparison at the time of dictation. The skeletal structures are osteopenic. No acute fracture is seen. There is moderate osteoarthritic change at the first metatarsophalangeal joint. Yhkp-kz-xcfqhgon arthritic change is present in the midfoot. There is a large plantar heel spur. Mild soft tissue swelling is suggested along the dorsum of the foot. IMPRESSION: 1. No acute fracture is identified. 2. Osteopenia with arthritic change and a large heel spur as above. Medications Administered ER medications given: Normal saline 500 mL bolus ECG Rate (beats per minute): 60 Rhythm: normal sinus Findings: + left axis deviation; no acute ischemic change Comparison ECG Date: from (September 13, 2021) Change: no significant change Code Status & VTE Plan Code Status Full PG Care Time/CCT Total # of Minutes Spent Total Time Spent with Patient: Total time spent is greater than 50% in coordination of care (as documented) at patient's floor/unit and/or counseling patient: Coding Level of Care Code 08636 INT INP/OBS CARE 2/55MIN Diagnoses Rhabdomyolysis M62.82 Rhabdomyolysis type: non-traumatic Fall W19.XXXA Encounter type: initial encounter Neuropathy G62.9 Hypomagnesemia E83.42 Hypertension I10 Hyperlipidemia E78.5 GERD (gastroesophageal reflux disease) K21.9 Diabetes mellitus, type 2 E11.9 MARTHA (obstructive sleep apnea) G47.33 (1) Rhabdomyolysis Rhabdomyolysis type: non-traumatic Qualified Code(s): M62.82 - Rhabdomyolysis (2) Fall Encounter type: initial encounter Qualified Code(s): W19.XXXA - Unspecified fall, initial encounter
[2022-05-23] MEDS ORDERED: ACETAMINOPHEN 325 MG TAB PO PRN (22:53)
[2022-05-23] MEDS ORDERED: DEXTROSE 50% 50 ML SYRINGE IV PRN (22:55)
[2022-05-23] MEDS ORDERED: GLUCAGON FOR INJ 1 MG VIAL SQ PRN (22:55)
[2022-05-23] MEDS ORDERED: GLUCOSE 10 TAB/TUBE PO PRN (22:55)
[2022-05-23] MEDS ORDERED: CARBOHYDRATES FOR HYPOGLYCEMIA PO PRN (22:55)
[2022-05-23] MEDS ORDERED: GLUCOSE 40% GEL 15 GM TUBE PO PRN (22:55)
[2022-05-23] MEDS: metFORMIN HCL 500 MG TAB PO SCH (23:43)
[2022-05-23] MEDS: glipiZIDE 5 MG TAB PO SCH (23:44)
[2022-05-23] MEDS: MAGNESIUM OXIDE 400 MG TAB PO SCH (23:44)
[2022-05-23] MEDS: ASPIRIN 81 MG ECTAB PO SCH (23:45)
[2022-05-23] MEDS: LOSARTAN POTASSIUM 25 MG TAB PO SCH (23:45)
[2022-05-23] MEDS: LACTATED RINGER'S 1,000 ML IV SCH (23:48)
[2022-05-24 07:13] LABS: Hemoglobin 11.5 g/dl (12.0-16.0); Mean Corpuscular Hemoglobin 30.2 pg (25.0-34.0); Mean Corpuscular Hgb Conc 33.8 g/dL (32.0-36.0); Mean Corpuscular Volume 89.2 fL (80.0-100.0); Mean Platelet Volume 10.3 fL (9.4-12.4); Platelet Count 176 K/uL (130-400); RDW Coefficient of Variation 14.2 % (11.5-14.5); RDW Standard Deviation 46.1 fL (36.4-46.3); Red Blood Count 3.81 M/uL (4.20-5.40); White Blood Count 8.91 K/ul (4.8-10.8)
[2022-05-24 07:34] LABS: BUN Creatinine Ratio 18.3 (10-20); Calcium 9.2 mg/dl (8.5-10.1); Creatinine Clr Calc Pharmacy 49.3 ml/min; Est GFR (African American) 66.8 ml/min; Est GFR (Non-African American) 57.6 ml/min; Potassium 4.3 mmol/L (3.5-5.1)
[2022-05-24 07:38] LABS: Estimated Average Glucose 157 mg/dl; Hemoglobin A1C 7.1 % (4.5-5.6)
[2022-05-24] MEDS ORDERED: ATORVASTATIN 40 MG TAB PO SCH (09:00)
[2022-05-24] MEDS: INSULIN ASPART PER UNIT SC SCH ×4 (09:06→20:44)
[2022-05-24] MEDS: CHOLECALCIFEROL 1,000 UNITS 25 MCG TAB PO SCH (09:07)
[2022-05-24] MEDS: MAGNESIUM OXIDE 400 MG TAB PO SCH ×2 (09:07→21:44)
[2022-05-24] MEDS: PANTOprazole 40 MG TAB PO SCH (09:07)
[2022-05-24] MEDS: metFORMIN HCL 500 MG TAB PO SCH ×2 (09:07→17:15)
[2022-05-24] MEDS: LACTATED RINGER'S 1,000 ML IV SCH ×2 (09:07→17:14)
[2022-05-24] MEDS: METOPROLOL SUCC 25MG EXT REL TAB PO SCH (09:07)
[2022-05-24] MEDS: glipiZIDE 5 MG TAB PO SCH ×2 (09:07→17:14)
[2022-05-24] MEDS: FEXOFENADINE HCL 180 MG TAB PO SCH (09:07)
--- NOTE | 2022-05-24 13:54 | Discharge Summary ---
Date of Service May 24, 2022 Admission HPI Per Admitting Provider Svitlana Kerr is an 81 year old female who presents to the ER due to left leg pain. She reports her left leg buckling when she went to get into her car yesterday. She had her right leg in the car and her left leg buckled and she went back on it. She bumped her head and right shoulder. She tried to call somebody but no one was there and eventually made it back into the car to drive time. Their helped her out of the car using her roller. She put ice on her leg and could only sit till she went to bed. She reports current severity 8/10. Pain is much worse today especially across her back and from her knee to ankle when she tries to stand on her leg. She denies any pain radiating down from her back. She reports chronic issues with her left leg and her knee buckling. Initially felt to be due to low magnesium levels. She reports improvement also with knee injections by her orthopedic physician which she had just a few days ago. Admission Exam Per Admitting Provider Constitutional: WD/WN, vitals as above Eyes: + anicteric sclerae; normal pupil size B Respiratory: normal respiratory effort, lungs clear to auscultation Cardiovascular: RRR, no murmur, no edema Musculoskeletal: no cyanosis or clubbing, extremities motor strength 5/5 No pain on int/ext rotation of left or right hips ankle edema and painful to palpation Skin: + ecchymosis (3-4cm circumference over left knee) Trauma: + abrasion (left lateral ankle) Neurologic: moves all extremities and awake; not confused Motor/Sensory: no sensory deficit Psychiatric: A+Ox3, euthymic affect Principal Diagnosis Rhabdomyolysis secondary to a fall Discharge Exam Constitutional WD/WN, vitals as above Neck trachea midline, no thyromegaly Respiratory normal respiratory effort, lungs clear to auscultation Cardiovascular RRR, no murmur, no edema Gastrointestinal (Abdomen) normal bowel sounds, soft, nontender, no hepatosplenomegaly Skin no rashes, warm and dry ecchymoses left knee and abrasion left ankle Neurologic PERRL, EOMI, accommodation nl, no face palsy, no dysarthria Psychiatric A+Ox3, euthymic affect Discharge Data Allergies Allergy/AdvReac Type Severity Reaction Status Date / Time codeine Allergy Severe ANAPHALAXIS Verified 05/23/22 19:09 lisinopril AdvReac Mild cough Verified 05/23/22 19:09 oyster extract AdvReac Mild NAUSEA/VOMI Verified 05/23/22 19:09 TTING Consultations 05/23/22 18:55 ED Decision to Admit Stat Ordered Studies 05/23/22 14:45 CT cervical spine wo con Stat CT head/brain wo con Stat IMPRESSION: There is no hemorrhage, mass effect, or evidence of acute territorial ischemia by CT criteria. Left knee Xray IMPRESSION: Degenerative changes without evidence of acute injuries Left femur and pelvis Xray IMPRESSION: Degenerative changes without evidence of acute injury. Hospital Course (1) Rhabdomyolysis: Very mild. 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 She is awaiting an appointment with Dr Hsu to have this worked up as an outpatient. No acute changes to suggest need for acute inpatient workup. (4) Hypomagnesemia: Replaced on admission. Continue oral supplementation (5) Hypertension: Continue losartan 25 mg p.o. daily, metoprolol succinate 25 mg p.o. daily (6) Hyperlipidemia: Hold statin while rhabdomyolysis resolved Can restart Statin next week after she has a follow up with her PCP (7) GERD (gastroesophageal reflux disease): Continue pantoprazole 40 mg p.o. daily (8) Diabetes mellitus, type 2: Hemoglobin A1c 8.0 in August 2021. Repeat with a.m. labs. was 7.1 Continue metformin and glipizide at current time dosing. NovoLog as needed for correction only. (9) MARTHA (obstructive sleep apnea): Current home CPAP on recall CPAP at bedtime Plan Discharge to home with outpatient Physical Therapy Total Time Total Time Spent Total Time Spent (In Minutes): 40 Discharge Plan Discharge Items Reason For Visit: RHABOMYOLYSIS Discharge Diagnosis: Rhabdomyolysis Condition on Discharge: Good Activity: Resume your previous activity Non-emergency contact: Primary Care Provider Call non-emergency contact if: you have any medication questions and your symptoms worsen Follow-up/Referrals: Vince Skinner MD [Primary Care Provider] - Diet: Carb Consistent or DM2 Addtl Attending Provider Instructions: You were admitted after sustaining a fall and were found to have rhabdomyolysis which is a break down of muscle tissue from you being down after your fall for an extended period of tie before you were able to get up. This was detected by a blood test that revealed your CK level to be over 900 and then on repeat this AM was 500. You were treated by IV fluid replacement and your statin medication for your cholesterol ws held. PT evaluated you this AM and recommended outpatient PT. Meza are already set up with PT as an outpatient. You should mariama nue to hold your cholesterol medication for the rest of this week and can restart next week. You should also make a follow up appointment with your PCP. Pending Studies at Discharge: No Skilled Items Patient informed of condition?: Yes DNR: No Medications and DC Order Prescriptions: No Action (DME) CPAP Machine Misc See Rx Instructions .MEDSUPPLY Qty: 1 0RF Rx Instructions: CPAP at 8 cm water with C-Flex of 2. G47.33 (DME) Incentive Spirometer Misc See Rx Instructions .MEDSUPPLY Qty: 1 0RF Rx Instructions: As directed (DME) CPAP Supplies Misc See Rx Instructions .MEDSUPPLY Qty: 1 0RF Rx Instructions: CPAP supplies. G47.33 coenzyme Q10 [CoQ-10] 100 mg capsule 200 mg PO QAM cholecalciferol (vitamin D3) 25 mcg (1,000 unit) capsule 25 mcg PO QAM aspirin 81 mg tablet,delayed release (DR/EC) 81 mg PO QPM atorvastatin 40 mg Tablet 40 mg PO QAM glipizide 10 mg Tablet 10 mg PO BID metformin 1,000 mg Tablet 1,000 mg PO BID losartan 25 mg Tablet 25 mg PO QPM metoprolol succinate 25 mg tablet extended release 24 hr 25 mg PO QAM magnesium oxide 500 mg capsule 500 mg PO BID Qty: 30 0RF fexofenadine [Marly] 180 mg Tablet 180 mg PO QAM pantoprazole 40 mg tablet,delayed release (DR/EC) 40 mg PO QAM calcium carbonate [Calcium 600] 600 mg calcium (1,500 mg) Tablet 600 mg PO QAM Sarah/Other Patient Handouts: Managing Type 2 Diabetes, Special Foot Care for Diabetes Admission Data Admit Date/Time: 05/23/22 19:43 Attending Provider: Saw Robles Admit Provider: Wild Mederos Primary Care Provider: Vince Skinner Other Providers: Wild Mederos Coding Diagnoses Rhabdomyolysis M62.82 Rhabdomyolysis type: non-traumatic Fall W19.XXXA Encounter type: initial encounter Neuropathy G62.9 Hypomagnesemia E83.42 Hypertension I10 Hyperlipidemia E78.5 GERD (gastroesophageal reflux disease) K21.9 Diabetes mellitus, type 2 E11.9 MARTHA (obstructive sleep apnea) G47.33
--- NOTE | 2022-05-24 16:41 | Hospitalist Progress Note ---
Date of Service May 24, 2022 Assessment & Plan (1) Rhabdomyolysis: Plan: Very mild. 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 She is awaiting an appointment with Dr Hsu to have this worked up as an outpatient. No acute changes to suggest need for acute inpatient workup. (4) Hypomagnesemia: Plan: Replaced on admission. Continue oral supplementation (5) Hypertension: Plan: Continue losartan 25 mg p.o. daily, metoprolol succinate 25 mg p.o. daily BP currently 131/68 (6) Hyperlipidemia: Plan: Hold statin while rhabdomyolysis resolved Can restart Statin next week after she has a follow up with her PCP (7) GERD (gastroesophageal reflux disease): Plan: Continue daily Pantoprazole (8) Diabetes mellitus, type 2: Plan: Hemoglobin A1c 8.0 in August 2021. Repeat with a.m. labs. was 7.1 Continue metformin and glipizide at current time dosing. NovoLog as needed for correction only. (9) MARTHA (obstructive sleep apnea): Plan: Current home CPAP on recall CPAP at bedtime Plan Plan to discharge to home tomorrow with outpatient PT Admission and Anticipated Discharge Date Admission Date: May 23, 2022 Subjective Patient was awake sitting up in recliner this AM. PT evaluated patient. She tells me that she is starting to feel slightly better and was up ambulating with PT. She states she is already hooked up with [facility] PT and has an appointmtne May 30. She is asking if she can wait until tomorrow to be discharged home. Review of Systems Review of Systems: denies any chest pain, SOB, Dyspnea, abdominal pain, nausea, vomiting or any GI bleeding. She denies any abdominal pain. She denies any further leg or back pain. All other ROS negative unless stated above. Physical Exam Constitutional: WD/WN, vitals as above Neck: trachea midline, no thyromegaly Respiratory: normal respiratory effort, lungs clear to auscultation Cardiovascular: Rate/Rhythm: regular rate and regular rhythm Heart Sounds: normal S1 and normal S2 Gastrointestinal (Abdomen): normal bowel sounds, soft, nontender, no hepatosplenomegaly Skin: no rashes, warm and dry Psychiatric: A+Ox3, euthymic affect Results & Data Results & Data ([facility]) Vital Signs (Past 12 Hours) Vital Signs Temp Pulse Resp BP Pulse Ox O2 Del Method 05/24/22 15:25 36.9 C 60 16 131/68 97 Room Air 05/24/22 09:15 Room Air 05/24/22 07:49 36.6 C 68 18 143/72 H 97 Room Air Laboratory Results Abnormal lab results 05/23/22 05/24/22 05/24/22 Range/Units 17:14 06:32 06:32 RBC 3.81 L (4.20-5.40) M/uL Hgb 11.5 L (12.0-16.0) g/dl Hct 34.0 L (37.0-47.0) % Chloride (98-107) mmol/L POC Glucose (70-99) mg/dl Hemoglobin A1c 7.1 H (4.5-5.6) % Total Creatine Kinase (26-192) U/L Urine Glucose (UA) 3+ H (Negative) Ur Leukocyte Esterase 1+ H (Negative) Urine WBC (Auto) 5-10 H (0-5) /hpf U Epithel Cells (Auto) >30 H (0-5) /lpf 05/24/22 05/24/22 Range/Units 06:32 11:44 RBC (4.20-5.40) M/uL Hgb (12.0-16.0) g/dl Hct (37.0-47.0) % Chloride 109 H (98-107) mmol/L POC Glucose 186 H (70-99) mg/dl Hemoglobin A1c (4.5-5.6) % Total Creatine Kinase 550 H (26-192) U/L Urine Glucose (UA) (Negative) Ur Leukocyte Esterase (Negative) Urine WBC (Auto) (0-5) /hpf U Epithel Cells (Auto) (0-5) /lpf Diagnostic Findings Ankle X-Ray 05/23/22 14:45 XR ankle LT min 3V routine CLINICAL HISTORY: fall TECHNIQUE: 3 views of the left ankle were obtained. Comparison: None available at the time of this dictation. FINDINGS: No acute fractures are present. The alignment is anatomic. The ankle mortise is intact. A plantar enthesophyte is seen. The talar dome is smooth. There is no ankle effusion. No soft tissue abnormality is seen. IMPRESSION: No evidence of acute osseous injury. ACT 112: Negative or not required by law. Electronically signed by: Des Anna M.D. 05/23/2022 5:17 PM Chest X-Ray 05/23/22 14:45 SINGLE VIEW CHEST CLINICAL HISTORY: Generalized weakness. FINDINGS: An AP, portable, upright chest radiograph is compared to study dated 09/13/2021. Correlation is made with chest CT dated 04/19/2021. The cardiomediastinal heart is enlarged indenting atherosclerotic calcification of the thoracic aorta. The pulmonary vasculature is noncongested. Chronic interstitial thickening is similar to previous. The lungs and pleural spaces are clear noting bibasilar scarring/atelectasis. No pneumothorax is seen. The skeletal structures are osteopenic. The bony thorax is grossly intact. A large calcified gallstone is seen in the right upper quadrant. IMPRESSION: 1. Cardiomegaly with no active disease in the chest. 2. A large calcified gallstone is again seen in the right upper quadrant. ACT 112: Negative or not required by law. Electronically signed by: Jt Saleem M.D. 05/23/2022 5:18 PM Femur X-Ray 05/23/22 14:45 SINGLE VIEW PELVIS; 3 VIEWS LEFT FEMUR CLINICAL HISTORY: Fall. FINDINGS: An AP view of the pelvis with AP, frog-leg, and lateral views of the left femur are obtained. Comparison is made to radiographs of the left femur dated 09/13/2021. The skeletal structures are osteopenic. There is no rad iographic evidence of acute fracture involving the hips or bony pelvis. There is no radiographic evidence of left femoral fracture. Mild arthritic change and joint space narrowing is seen in the hips. There is degenerative sclerosis of the sacroiliac joints and pubic symphysis. The left knee joint is grossly maintained noted arthritic change and chondrocalcinosis. The overlying soft tissues are within normal limits. Calcification at the origin of left hamstrings tendon is unchanged, as are calcifications in the pelvis. IMPRESSION: 1. No acute bony abnormality is seen involving the hips or pelvis. 2. There is no radiographic evidence of left femoral fracture. Electronically signed by: Jt Saleem M.D. 05/23/2022 5:15 PM Foot X-Ray 05/23/22 14:45 LEFT FOOT 3 VIEWS CLINICAL HISTORY: Fall. Left foot pain. FINDINGS: 3 views of the left foot are obtained. No prior studies are available for comparison at the time of dictation. The skeletal structures are osteopenic. No acute fracture is seen. There is moderate osteoarthritic change at the first metatarsophalangeal joint. [id number] arthritic change is present in the midfoot. There is a large plantar heel spur. Mild soft tissue swelling is suggested along the dorsum of the foot. IMPRESSION: 1. No acute fracture is identified. 2. Osteopenia with arthritic change and a large heel spur as above. Electronically signed by: Jt Saleem M.D. 05/23/2022 5:17 PM Knee X-Ray 05/23/22 14:45 XR knee LT 1 or 2V routine CLINICAL HISTORY: fall TECHNIQUE: 2 views of the left knee were obtained. Comparison: Comparison is made to left femur 05/23/2022 FINDINGS: There is no evidence of an acute fracture. Degenerative changes are seen in the knee joint. No joint effusion is seen. Vascular calcifications are noted. IMPRESSION: Degenerative changes without evidence of acute injury. ACT 112: Negative or not required by law. Electronically signed by: Des Anna M.D. 05/23/2022 5:16 PM Pelvis X-Ray 05/23/22 14:45 SINGLE VIEW PELVIS; 3 VIEWS LEFT FEMUR CLINICAL HISTORY: Fall. FINDINGS: An AP view of the pelvis with AP, frog-leg, and lateral views of the left femur are obtained. Comparison is made to radiographs of the left femur dated 09/13/2021. The skeletal structures are osteopenic. There is no radiographic evidence of acute fracture involving the hips or bony pelvis. There is no radiographic evidence of left femoral fracture. Mild arthritic change and joint space narrowing is seen in the hips. There is degenerative sclerosis of the sacroiliac joints and pubic symphysis. The left knee joint is grossly maintained noted arthritic change and chondrocalcinosis. The overlying soft tissues are within normal limits. Calcification at the origin of left hamstrings tendon is unchanged, as are calcifications in the pelvis. IMPRESSION: 1. No acute bony abnormality is seen involving the hips or pelvis. 2. There is no radiographic evidence of left femoral fracture. Electronically signed by: Jt Saleem M.D. 05/23/2022 5:15 PM Shoulder X-Ray 05/23/22 17:15 RIGHT SHOULDER 3 VIEWS CLINICAL HISTORY: Fall. Right shoulder pain. FINDINGS: 3 views of the right shoulder are obtained. No prior studies are available for comparison at the time of dictation. The skeletal structures are osteopenic. There is no radiographic evidence of fracture or dislocation. Mild arthritic change is seen in the glenohumeral and acromioclavicular joints. There is calcific tendinopathy. The overlying soft tissues are within normal limits. The visualized right lung parenchyma appears clear. IMPRESSION: No acute bony abnormality is identified. Electronically signed by: Jt Saleem M.D. 05/23/2022 6:32 PM PG Care Time/CCT Total # of Minutes Spent Total Time Spent with Patient: Total time spent is greater than 50% in coordination of care (as documented) at patient's floor/unit and/or counseling patient: Coding Level of Care Code 11180 SUB INP/OBS CARE 3/50MIN Diagnoses Rhabdomyolysis M62.82 Rhabdomyolysis type: non-traumatic Fall W19.XXXA Encounter type: initial encounter Neuropathy G62.9 Hypomagnesemia E83.42 Hypertension I10 Hyperlipidemia E78.5 GERD (gastroesophageal reflux disease) K21.9 Diabetes mellitus, type 2 E11.9 MARTHA (obstructive sleep apnea) G47.33 (1) Rhabdomyolysis Rhabdomyolysis type: non-traumatic Qualified Code(s): M62.82 - Rhabdomyolysis (2) Fall Encounter type: initial encounter Qualified Code(s): W19.XXXA - Unspecified fall, initial encounter
[2022-05-24] MEDS: ASPIRIN 81 MG ECTAB PO SCH (21:44)
[2022-05-24] MEDS: LOSARTAN POTASSIUM 25 MG TAB PO SCH (21:44)
[2022-05-25] MEDS: FEXOFENADINE HCL 180 MG TAB PO SCH (08:11)
[2022-05-25] MEDS: CHOLECALCIFEROL 1,000 UNITS 25 MCG TAB PO SCH (08:14)
[2022-05-25] MEDS: MAGNESIUM OXIDE 400 MG TAB PO SCH (08:15)
[2022-05-25] MEDS: METOPROLOL SUCC 25MG EXT REL TAB PO SCH (08:16)
[2022-05-25] MEDS: PANTOprazole 40 MG TAB PO SCH (08:17)
[2022-05-25] MEDS: INSULIN ASPART PER UNIT SC SCH ×2 (08:21→12:07)
[2022-05-25] MEDS: glipiZIDE 5 MG TAB PO SCH (08:26)
[2022-05-25] MEDS: metFORMIN HCL 500 MG TAB PO SCH (08:27)
--- NOTE | 2022-05-25 12:02 | Discharge Summary ---
Date of Service May 25, 2022 Admission HPI Per Admitting Provider Svitlana Kerr is an 81 year old female who presents to the ER due to left leg pain. She reports her left leg buckling when she went to get into her car yesterday. She had her right leg in the car and her left leg buckled and she went back on it. She bumped her head and right shoulder. She tried to call somebody but no one was there and eventually made it back into the car to drive time. Their helped her out of the car using her roller. She put ice on her leg and could only sit till she went to bed. She reports current severity 8/10. Pain is much worse today especially across her back and from her knee to ankle when she tries to stand on her leg. She denies any pain radiating down from her back. She reports chronic issues with her left leg and her knee buckling. Initially felt to be due to low magnesium levels. She reports improvement also with knee injections by her orthopedic physician which she had just a few days ago. Admission Exam Per Admitting Provider Constitutional: WD/WN, vitals as above Eyes: + anicteric sclerae; normal pupil size Respiratory: normal respiratory effort, lungs clear to auscultation B Cardiovascular: RRR, no murmur, no edema Musculoskeletal: no cyanosis or clubbing, extremities motor strength 5/5 No pain on int/ext rotation of left or right hips ankle edema and painful to palpation Skin: + ecchymosis (3-4cm circumference over left knee) Trauma: + abrasion (left lateral ankle) Neurologic: moves all extremities and awake; not confused Motor/Sensory: no sensory deficit Psychiatric: A+Ox3, euthymic affect Principal Diagnosis rhabdomyolysis Discharge Exam Constitutional WD/WN, vitals as above Neck trachea midline, no thyromegaly Respiratory normal respiratory effort, lungs clear to auscultation Cardiovascular Rate/Rhythm: regular rate and regular rhythm Heart Sounds: normal S1 and normal S2 Gastrointestinal (Abdomen) normal bowel sounds, soft, nontender, no hepatosplenomegaly Skin no rashes, warm and dry Psychiatric A+Ox3, euthymic affect Discharge Data Allergies Allergy/AdvReac Type Severity Reaction Status Date / Time codeine Allergy Severe ANAPHALAXIS Verified 05/23/22 19:09 lisinopril AdvReac Mild cough Verified 05/23/22 19:09 oyster extract AdvReac Mild NAUSEA/VOMI Verified 05/23/22 19:09 TTING Consultations 05/23/22 18:55 ED Decision to Admit Stat Ordered Studies 05/23/22 14:45 CT cervical spine wo con Stat CT head/brain wo con Stat IMPRESSION: There is no hemorrhage, mass effect, or evidence of acute territorial ischemia by CT criteria. Hospital Course (1) Rhabdomyolysis: Very mild. 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 She is awaiting an appointment with Dr Hsu to have this worked up as an outpatient. No acute changes to suggest need for acute inpatient workup. (4) Hypomagnesemia: Replaced on admission. Continue oral supplementation (5) Hypertension: Continue losartan 25 mg p.o. daily, metoprolol succinate 25 mg p.o. daily BP currently 131/68 (6) Hyperlipidemia: Hold statin while rhabdomyolysis resolved Can restart Statin next week after she has a follow up with her PCP (7) GERD (gastroesophageal reflux disease): Continue daily Pantoprazole (8) Diabetes mellitus, type 2: Hemoglobin A1c 8.0 in August 2021. Repeat with a.m. labs. was 7.1 Continue metformin and glipizide at current time dosing. NovoLog as needed for correction only. (9) MARTHA (obstructive sleep apnea): Continue CPAP Plan Plan to discharge to home tomorrow with outpatient PT Total Time Total Time Spent Total Time Spent (In Minutes): 40 Discharge Plan Discharge Items Patient Disposition: Home - Home Health Services Reason For Visit: RHABOMYOLYSIS Discharge Diagnosis: Rhabdomyolysis Condition on Discharge: Good Activity: Resume your previous activity Weightbearing: Full weightbearing Non-emergency contact: Primary Care Provider Call non-emergency contact if: you have any medication questions and your symptoms worsen Follow-up/Referrals: Vince Skinner MD [Primary Care Provider] - Diet: Carb Consistent or DM2 Addtl Attending Provider Instructions: You were admitted after sustaining a fall and were found to have rhabdomyolysis which is a break down of muscle tissue from you being down after your fall for an extended period of tie before you were able to get up. This was detected by a blood test that revealed your CK level to be over 900 and then on repeat this AM was 500. You were treated by IV fluid replacement and your statin medication for your cholesterol ws held. PT evaluated you this AM and recommended outpatient PT. You are already set up with PT as an outpatient. Case management set you up with some Home Health services until you are feeling stronger and are able to get to outpatient therapy. You should continue to hold your cholesterol medication for the rest of this week and can restart next week. You should also make a follow up appointment with your PCP. Keep appt as well for Dr Hsu for your neuropathy. Pending Studies at Discharge: No Stand-Alone Forms: [facility] Medications and DC Order Prescriptions: Continued (DME) CPAP Machine Misc See Rx Instructions .MEDSUPPLY Qty: 1 0RF Rx Instructions: CPAP at 8 cm water with C-Flex of 2. G47.33 (DME) Incentive Spirometer Misc See Rx Instructions .MEDSUPPLY Qty: 1 0RF Rx Instructions: As directed (DME) CPAP [facility]lies [facility] See Rx Instructions .MEDSUPPLY Qty: 1 0RF Rx Instructions: CPAP supplies. G47.33 coenzyme Q10 [CoQ-10] 100 mg capsule 200 mg PO QAM cholecalciferol (vitamin D3) 25 mcg (1,000 unit) capsule 25 mcg PO QAM aspirin 81 mg tablet,delayed release (DR/EC) 81 mg PO QPM atorvastatin 40 mg Tablet 40 mg PO QAM glipizide 10 mg Tablet 10 mg PO BID metformin 1,000 mg Tablet 1,000 mg PO BID losartan 25 mg Tablet 25 mg PO QPM metoprolol succinate 25 mg tablet extended release 24 hr 25 mg PO QAM magnesium oxide 500 mg capsule 500 mg PO BID Qty: 30 0RF fexofenadine 180 mg Tablet 180 mg PO QAM pantoprazole 40 mg tablet,delayed release (DR/EC) 40 mg PO QAM calcium carbonate [Calcium 600] 600 mg calcium (1,500 mg) Tablet 600 mg PO QAM Discharge Orders: Discharge Order (Routine); Ordered 05/25/22 Ordered By: Paula Smith/Other Patient Handouts: Managing Type 2 Diabetes, Special Foot [facility] for Diabetes Admission Data Admit Date/Time: 05/23/22 19:43 Attending Provider: Saw Robles Admit Provider: Wild Mederos Primary Care Provider: Vince Skinner Other Providers: Wild Mederos Coding Level of Care Code HOSP INP/OBS DISCH >30 MIN Diagnoses Rhabdomyolysis M62.82 Rhabdomyolysis type: non-traumatic Fall W19.XXXA Encounter type: initial encounter Neuropathy G62.9 Hypomagnesemia E83.42 Hypertension I10 Hyperlipidemia E78.5 GERD (gastroesophageal reflux disease) K21.9 Diabetes mellitus, type 2 E11.9 MARTHA (obstructive sleep apnea) G47.33 Time Spent (min) 40
== END 2022-05-25 17:22 | disposition home health service (06) | DRG 558 ==
LOC: ED 14:15 → 3W 19:43 → SUATTDRO 19:43 → 3W 22:20